=== PATIENT | female | born 1950 | race Caucasian/White ===

== ENCOUNTER 2020-06-23 07:43 | Outpatient (CLI) | payer MEDICARE, BC, SELFPAY ==
--- NOTE | ~2020-06-23 | US_ITS ---
EXAMINATION: US aorta [facility] DATE: 06/23/2020 08:26 INDICATION: Abdominal aortic aneurysm screening, prior smoker with history of hypertension and hyperc holesterolemia TECHNIQUE: Grayscale, color Doppler, and pulsed Doppler images of the aorta and common iliac arteries were obtained. COMPARISON: None. FINDINGS: Maximum vascular dimensions are as follows: Proximal aorta: 2.8 cm Mid aorta: 2.1 cm Distal aorta: 1.7 cm Right common iliac artery: Obscured by bowel gas Left common iliac artery: Obscured by bowel gas There is no evidence of abdominal aortic aneurysm. IMPRESSION: 1. No sonographic evidence of abdominal aortic aneurysm. Reviewed, dictated and finalized at location A.
== END 2020-06-23 07:44 | disposition home or self-care (01) ==
PROVIDERS: Visit Provider Internal Medicine Cardiovascular Disease
DX: Z87.891 Personal history of nicotine dependence (principal); Z12.2 Encounter for screening for malignant neoplasm of respiratory organs
CPT/HCPCS: 76706

== ENCOUNTER 2021-07-29 01:44 | Day surgery (SDC) | payer MEDICARE, BC, SELFPAY ==
[2021-07-29] VITALS (12 sets, daily range): BP systolic 103–150; BP diastolic 66–75; PULSE 68–77; RESP 13–23; TEMP 35.9–36; O2SAT 92–99; BMI 31.7
[2021-07-29 09:34] LABS: Basophils Absolute Auto 0.1 K/mm3 (0.0-0.1); Basophils Percent Auto 0.6 % (0.2-1.2); Eosinophils Absolute Auto 0.4 K/mm3 (0-0.3); Eosinophils Percent Auto 3.6 % (0-4.4); Hematocrit 35.4 % (37.0-47.0); Hemoglobin 11.9 g/dL (12.0-15.0); Immature Granulocyte Absolute 0.03 K/mm3 (0.00-0.031); Immature Granulocyte Percent A 0.3 % (0-0.5); Lymphocytes Absolute Auto 1.72 K/mm3 (0.9-3.2); Lymphocytes Percent Auto 17.3 % (18.3-44.2); Mean Corpuscular HGB Conc 33.6 g/dl (32-36); Mean Corpuscular Hemoglobin 33.7 pg (26-34); Mean Corpuscular Volume 100.3 fl (80-100); Mean Platelet Volume 10.4 fl (7.4-10.4); Monocytes Absolute Auto 0.6 K/mm3 (0.1-0.6); Monocytes Percent Auto 6.1 % (2.6-8.5); Neutrophils Absolute Auto 7.2 K/mm3 (1.3-6.7); Neutrophils Percent Auto 72.1 % (45.5-73.1); Platelet Count Result 278 k/mm3 (150-375); Red Blood Count 3.53 M/mm3 (4.2-5.4); Red Cell Distribution Width 13.8 % (11.5-14.5); White Blood Count 9.9 K/mm3 (4.5-10.0)
[2021-07-29 09:50] LABS: Anion Gap 9 mmol/L (8-16); Blood Urea Nitrogen 17 mg/dL (7-17); Calcium 9.5 mg/dL (8.4-10.2); Carbon Dioxide 28 mmol/L (22-30); Chloride 106 mmol/L (98-107); Estimated Glomerular Filt Rate > 60; Glucose 110 mg/dL (65-110); Sodium 143 mmol/L (137-145)
[2021-07-29] MEDS: ASPIRIN 81 MG CHEWABLE TABLET PO (10:00)
--- NOTE | 2021-07-29 10:11 | WPDHPUPDATE1 ---
History and Physical Update Update Date/Time: 07/29/21 10:11 History and Physical has been reviewed, including an updated exam of the patient. There are NO changes in the patient's condition. Risks, benefits, and alternatives have been discussed and questions answered. Patient agrees to proceed with procedure.
--- NOTE | 2021-07-29 10:11 | WPDMODSED ---
Moderate Sedation Note-Pt Data Patient Data Allergies Allergy/AdvReac Type Severity Reaction Status Date / Time cephalexin Allergy Unknown VERTIGO Verified 02/06/17 14:11 Home Medications Medication Instructions Recorded Confirmed Type albuterol sulfate [ProAir HFA] 2 puff INHALATION Q3-4H PRN 07/29/21 07/29/21 History allopurinol 300 mg PO QAM 07/29/21 07/29/21 History bupropion HCl 300 mg PO QAM 07/29/21 07/29/21 History carvedilol 12.5 mg PO QAM 07/29/21 07/29/21 History furosemide 40 mg PO QAM 07/29/21 07/29/21 History pantoprazole 20 mg PO QAM 07/29/21 07/29/21 History potassium chloride [Klor-Con M20] 20 meq PO BID 07/29/21 07/29/21 History Current Medications: Active Medications Sodium Chloride (Normal Saline Iv) 500 mls @ 100 mls/hr IV CONT .Q5H [facility] Sedation/Anesthesia: No previous sedation/anesthesia problems (including family history). Mod Sed Physical Exam Physical Exam Pre Procedural Exam: Normal: Appearance, Eyes, Ears, Nose, Neck, Throat, Airway, Lungs, Heart Size, Heart Rate, Heart Rhythm, Neuro Exam, Abdomen, Liver, Kidneys, Spleen, Breasts, Genitalia, Extremities and Skin Hours since solid foods: 8 Hours since liquid intake: 8 Mallampati Classification: class 1 Internal Medicine - PN: Obj Da Vital Signs Vital Signs: Vital Signs - 24 hr 07/29/21 09:43 Temperature 35.9 C L Pulse Rate 70 Respiratory Rate 18 Blood Pressure 150/73 H Pulse Oximetry 99 Meds/Results Medications: Active Medications Generic Name Dose Route Start Last Admin Trade Name Freq PRN Reason Stop Dose Admin Sodium Chloride 500 mls @ 100 mls/hr 07/29/21 07:00 Normal Saline Iv IV CONT .Q5H [facility] Labs CBC & Chem 7: 07/29/21 09:18 07/29/21 09:18 Labs: Laboratory Results - last 24 hr 07/29/21 07/29/21 09:18 09:18 WBC 9.9 RBC 3.53 L Hgb 11.9 L Hct 35.4 L MCV 100.3 H MCH 33.7 MCHC 33.6 RDW 13.8 Plt Count 278 MPV 10.4 Immature Gran % (Auto) 0.3 Neut % (Auto) 72.1 Lymph % (Auto) 17.3 L [place] % (Auto) 6.1 Eos % (Auto) 3.6 Baso % (Auto) 0.6 Lymph # (Auto) 1.72 [place] # (Auto) 0.6 Eos # (Auto) 0.4 H Baso # (Auto) 0.1 Abs Immat Gran (auto) 0.03 Absolute Neuts (auto) 7.2 H Absolute Nucleated RBC 0.0 Nucleated RBC % 0.0 Sodium 143 Potassium 4.0 Chloride 106 Carbon Dioxide 28 Anion Gap 9 BUN 17 Creatinine 0.90 Estim Creat Clear Calc Not Reportable Estimated GFR > 60 Glucose 110 Calcium 9.5 ASA Classification/Sedation ASA Classification/Sedation ASA Class: I Emergent: No Risks: Risks, benefits and alternatives explained and patient/family accepted plan for sedation. Patient re-evaluated immediately prior to sedation.
--- NOTE | 2021-07-29 10:14 | WPDCARDPROC ---
Cardiac Cath Procedure Note Date of procedure:: 07/29/21 Performing physician:: Bimal Brady MD date of service July 29, 2021 Indication:: Abnormal stress test Brief clinical history:: this 71-year-old female past history hypertension, rheumatoid arthritis, PVCs, monoclonal paraproteinemia who was evaluated for family history for coronary artery disease as well as coronary calcification. He admits to dyspnea on exertion. Underwent Lexiscan stress test that showed inferior ischemia anterior wall mixed infarction and ischemia. Procedure Procedure performed:: 1-Moderate sedation that started at 10:19 a.m. and ended at 1034 total duration 15 minutes using 3mg of Versed and 75mcg fentanyl. The registered nurse was Randall Pereira. 2-Selective left and right coronary angiogram. 3-Left heart catheterization with measurement of LVEDP and measurement of gradient across aortic valve. 4-Right common femoral arterial angiogram. 5-Deployment of 6 Slovak Angio-Seal. Sedation/Medication given:: Moderate sedation. Access site:: Right common femoral artery. Estimated blood loss:: 10cc Procedure note:: After informed consent patient was brought in to denture laboratory technician with the was draped and prepped in usual manner. Moderate sedation was given and the right groin was infiltrated using 1% lidocaine. Five Slovak sheath was obtained using micropuncture needle and the modified Seldinger technique. Selective left coronary angiogram was done using JL4 catheter with the tip of the catheter placed in the left main coronary artery. Selective right coronary angiogram was done using JR4 catheter with the tip of the catheter placed to the right coronary artery. After that 5 Slovak pigtail catheter was advanced across the aortic valve into the left ventricle with measurement of LVEDP and measurement of gradient across aortic valve. Right common femoral arterial angiogram was done. Findings:: 1- left coronary artery is a large artery that divides into large LAD, large circumflex artery. Left main is Free of disease. 2- left anterior descending artery is a large artery that runs and wraps around the apex. Has minimal irregularities proximally. Small to medium-sized diagonal 1 branch without significant disease. 3- leftcircumflex artery is a large artery Small OM1 without significant disease. A medium size OM 2 without significant disease. 4- right coronary artery is Large artery and dominant and has the mid segment 20%. 5- LVEDP was 12 mm mercury and no gradient across aortic valve. 6- opening arterial pressure was and 160/80 and closing pressure was 140/80 7- right femoral artery angiogram shows no significant disease in the right common femoral artery. Conclusion:: minimal coronary irregularities. False-positive stress test. Assessment and Plan Additional Plan continue aggressive risk factor modification for CAD.
--- NOTE | 2021-07-29 14:15 | SUR.PHASEII ---
Pt departs helper animal laboratory via wheelchair, taken to private car where is to drive patient home. Dressing at puncture site looks clean, dry, and intact. Site remains nontender and free of any signs of bleeding/hematoma. DC instructions and restrictions reviewed with patient. Patient verbalized understanding. VSS upon DC. IV discontinued, catheter removed intact, bleeding controlled at site.
== END 2021-07-29 14:10 | disposition home or self-care (01) ==
PROVIDERS: PCP Nurse Practitioner Family; Visit Provider Internal Medicine Cardiovascular Disease
PROC: 4A023N7 Measurement of Cardiac Sampling and Pressure, Left Heart, Percutaneous Approach (ICD-10-PCS; CPT 93452; principal; 2021-07-29 10:00)
DX: R94.39 Abnormal result of other cardiovascular function study (principal); R06.09 Other forms of dyspnea; I10 Essential (primary) hypertension; M06.9 Rheumatoid arthritis, unspecified; I49.3 Ventricular premature depolarization; D47.2 Monoclonal gammopathy; Z79.51 Long term (current) use of inhaled steroids
CPT/HCPCS: 36415; 80048; 85025; 93458; A9270; C1760; C1887; C1894; G0269; J1644; J2250; J3010; J7040

== ENCOUNTER 2024-04-08 12:35 | Emergency (ER) | payer MEDICARE, SELFPAY ==
[2024-04-08 12:48] VITALS: BP 142/62; PULSE 86; RESP 20; TEMP 37; O2SAT 99
--- NOTE | 2024-04-08 14:22 | ED.GENADULT ---
HPI - General Adult General Chief complaint: Abdominal Pain Stated complaint: Abdominal Pain Time Seen by Provider: 04/08/24 13:15 Source: patient, RN notes reviewed and old records reviewed Mode of arrival: ambulatory Limitations: no limitations History of Present Illness HPI narrative: 74-year-old female to Express Care for complaint of nausea, lower abdominal pain, temp up to 100.5 for 3 days. Patient reports history of chronic diarrhea and intermittent colitis. Patient states she is concerned for urinary tract infection. Patient denies urinary frequency, incontinence, hematuria, dysuria, hesitancy. Patient able to tolerate fluids by mouth. Patient in no acute distress in exam room. Related Data Home Medications Medication Instructions Recorded Confirmed albuterol sulfate 90 mcg/actuation 2 puff inhalation Q3-4H PRN 07/29/21 04/08/24 aerosol inhaler (ProAir HFA) Shortness Of Breath allopurinol 300 mg tablet 300 mg PO QAM 07/29/21 04/08/24 bupropion HCl 300 mg 24 hr tablet, 300 mg PO QAM 07/29/21 04/08/24 extended release carvedilol 12.5 mg tablet 12.5 mg PO QAM 07/29/21 04/08/24 furosemide 40 mg tablet 40 mg PO QAM 07/29/21 04/08/24 pantoprazole 20 mg tablet,delayed 20 mg PO QAM 07/29/21 04/08/24 release potassium chloride 20 mEq 20 meq PO BID 07/29/21 04/08/24 tablet,extended release(part/cryst) (Klor-Con M) baclofen 10 mg tablet 10 mg PO HS 04/08/24 04/08/24 budesonide-formoterol HFA 160 See Rx Instructions .Route .COMPLEX 04/08/24 04/08/24 mcg-4.5 mcg/actuation aerosol inhaler famotidine 20 mg tablet 20 mg PO DAILY 04/08/24 04/08/24 prednisone 5 mg tablet 5 mg PO DAILY 04/08/24 04/08/24 Allergies Allergy/AdvReac Type Severity Reaction Status Date / Time cephalexin Allergy Unknown VERTIGO Verified 04/08/24 12:47 Review of Systems Review of Systems: All systems reviewed & are unremarkable except as noted in HPI and below Constitutional: Constitutional: Reports as per HPI and Reports fever(s) Eyes: Eyes: Reports no additional eye complaints ENT: Reports system reviewed and no additional complaints, except as documented Cardiovascular: Cardiovascular: Reports no additional cardiovascular complaints, Denies chest pain and Denies dyspnea Respiratory: Respiratory: Reports no additional respiratory complaints, Denies cough and Denies dyspnea Gastrointestinal: Gastrointestinal: Reports as per HPI, Reports abdominal pain ( Lower) and Reports nausea Musculoskeletal: Musculoskeletal: Reports no additional musculoskeletal complaints Neurologic: Reports system reviewed and no additional complaints, except as documented Psychiatric: Psychiatric: Reports no additional psychiatric complaints PMFSH Comments At the time of my signature, I reviewed and agree with the nursing past medical, surgical, social, and family history. There is no relevant family history pertinent to the patient complaint. Exam Const: General: cooperative, healthy appearing, no acute distress, alert, anxious and well nourished Nutritional Appearance: well nourished Orientation/consciousness: patient oriented x3 Limitations: no limitations HENMT: Head: normal to inspection Ears: external ears normal Face/Nose/Sinus: Normal external nose present, Normal nares present, normal facial exam, No erythema and No edema Face and sinus: normal facial exam, no erythema and no edema Mouth: Yes Normal oral and palatal mucosa present Eyes: General: appearance normal, both eyes and all related structures Neck: Neck: normal visual inspection, full ROM and no meningeal signs Lymphatic: no lymphadenopathy noted and no lymphedema noted Chest: Chest palpation & inspection: normal inspection of the chest Resp: Effort & Inspection: normal respiratory effort and able to speak in complete sentences Auscultation: clear to auscultation bilaterally Cardio: Jugular venous distension: no JVD Rate: regular rate Rhythm: regular rhythm GI:
== END 2024-04-08 14:50 | disposition home or self-care (01) ==
PROVIDERS: Emergency Provider Nurse Practitioner Family; PCP Internal Medicine
DX: N39.0 Urinary tract infection, site not specified (principal); E78.00 Pure hypercholesterolemia, unspecified; I10 Essential (primary) hypertension; J44.9 Chronic obstructive pulmonary disease, unspecified; Z86.16 Personal history of COVID-19; M06.9 Rheumatoid arthritis, unspecified; M10.9 Gout, unspecified
CPT/HCPCS: 81003; 87086; 87088; 99213; G0463

== ENCOUNTER 2025-02-18 11:23 | Emergency (ER) | payer BC, SELFPAY ==
--- NOTE | 2025-02-18 11:28 | ED.URI ---
HPI - URI/Sore Throat General Chief Complaint: Upper Respiratory Infection Stated Complaint: urinary irritation/sore throat Time Seen by Provider: 02/18/25 11:52 Source: patient and RN notes reviewed Mode of arrival: ambulatory Limitations: no limitations History of Present Illness HPI Narrative: 74-year-old female presents with multiple concerns. She reports a cough for about 3 days. She has a history of bronchial disease for which she uses Symbicort twice daily and albuterol as needed. She has not used her in albuterol week. And a 2nd complaint she reports urine urgency and 1 episode of incontinence. Denies dysuria. She reports low-grade fever last night. MD elicited complaint: cough Related Data Home Medications ?Medication ?Instructions ?Recorded ?Confirmed ?Last Taken ?Type albuterol sulfate 90 mcg/actuation 2 puff inhalation Q3-4H PRN 07/29/21 02/18/25 07/29/21 07:00 History aerosol inhaler (ProAir HFA) Shortness Of Breath allopurinol 300 mg tablet 300 mg PO QAM 07/29/21 02/18/25 07/29/21 History bupropion HCl 300 mg 24 hr tablet, 300 mg PO QAM 07/29/21 02/18/25 07/29/21 History extended release 0700 carvedilol 12.5 mg tablet 12.5 mg PO QAM 07/29/21 02/18/25 07/29/21 07:00 History furosemide 40 mg tablet 40 mg PO QAM 07/29/21 02/18/25 07/28/21 07:00 History pantoprazole 20 mg tablet,delayed 20 mg PO QAM 07/29/21 04/08/24 07/29/21 07:00 History release potassium chloride 20 mEq 20 meq PO BID 07/29/21 02/18/25 07/29/21 07:00 History tablet,extended release(part/cryst) (Klor-Con M) baclofen 10 mg tablet 10 mg PO HS 04/08/24 02/18/25 Unknown History budesonide-formoterol HFA 160 See Rx Instructions .Route .COMPLEX 04/08/24 02/18/25 Unknown History mcg-4.5 mcg/actuation aerosol inhaler famotidine 20 mg tablet 20 mg PO DAILY 04/08/24 04/08/24 Unknown History prednisone 5 mg tablet 5 mg PO DAILY 04/08/24 02/18/25 Unknown History hydrocodone 5 mg-acetaminophen 325 tablet 02/18/25 Unknown History mg tablet Allergies Allergy/AdvReac Type Severity Reaction Status Date / Time tramadol Allergy Mild Migraine Verified 02/18/25 11:49 cephalexin Allergy Unknown VERTIGO Verified 02/18/25 11:49 Review of Systems Review of Systems: CONSTITUTIONAL: Denies malaise, chills, sweats. Reports low-grade fever. EYES: Denies visual changes, redness, or discharge. ENT: Reports rhinorrhea. Denies congestion, sinus pain, otalgia and sore throat. CARDIOVASCULAR: Denies chest pain, palpitations, or edema. RESPIRATORY: Reports cough. Denies dyspnea. GASTROINTESTINAL: Denies abdominal pain, nausea, vomiting, diarrhea : Reports urgency and 1 episode of incontinence. She denies dysuria, suprapubic pressure, back pain SKIN: Denies rash or itching. MUSCULOSKELETAL: Denies myalgia. NEUROLOGIC: Denies headache. All systems reviewed & are unremarkable except as noted in HPI and below PMFSH Comments At time of signature, agree with nursing past medical, surgical, social and family history. There is no relevant family history pertinent to the presenting complaint Exam Narrative: GENERAL: Well-appearing, well-nourished, and in no acute distress. HEAD: Normocephalic EYES: PERRLA, conjunctivae clear ENT: Nares clear. Mucous membranes moist. TM pearly [place] with dull light reflex bilaterally; no tragal tenderness. Oropharynx not erythematous without lesions. Tonsils not enlarged and without exudate, no drooling, no hoarseness, no trismus, uvula midline. NECK: Supple. No lymphadenopathy CHEST: Mild wheeze throughout, scattered rhonchi, breath sounds equal. No rhonchi, rales, or stridor. No respiratory distress, speaks in full sentences. HEART: Regular rate and rhythm. No murmur heard. SKIN: Warm, dry, no rash. NEURO: Alert and oriented x3. PSYCH: Normal mood and affect Course Course Emergency Course: Patient is aware of diagnosis, understands and agrees to treatment plan. Anticipatory guidance given. Patient agrees to follow-up as directed and is aware of reasons to seek care at the emergency department. Portions of this record may have been created with voice recognition software Level of Care: Express Care Visit Vital Signs Vital signs: Reviewed. MDM - URI/Sore Throat MDM Narrative Medical decision making narrative: Differential diagnosis considered: Humphrey virus, strep pharyngitis, allergic rhinitis, upper respiratory tract infection, sinusitis, rhinosinusitis, nasopharyngitis. viral pharyngitis, otitis media, otitis externa, pneumonia, bronchitis, viral cough syndrome, viral syndrome, and influenza. Exam findings show no acute concerns or changes; patient is non-toxic appearing and is in no distress. Patient is appropriate for outpatient treatment and follow-up. Lab Data Attestation: I reviewed the patient's lab results. Critical Care Time Critical Care Time Critical Care Time: No Discharge Plan Discharge Clinical Impression: Upper respiratory infection Patient Disposition: Home, Self-Care Condition: Stable Instructions: Antibiotic Form Additional Instructions: 1) Please follow-up with your primary care doctor in the next 1-2 days. 2) If you have any worsening of symptoms or any other urgent concerns please go to the ER. 3) Please take medications as prescribed and continue taking your home medications as usual. 4) Please read and follow information included in discharge instructions. We will send a urine culture to the lab; if the culture identifies an organism that requires antibiotic, you will receive a phone call from an urgent care staff member and an appropriate antibiotic will be prescribed. Patient Language: Colombian Prescriptions: New azithromycin [Zithromax Z-En] 250 mg tablet See Rx Instructions .ROUTE .COMPLEX Qty: 6 0RF Rx Instructions: take 500 mg today (day 1), then 250 mg for 4 days (days 2-5) methylprednisolone [Medrol (En)] 4 mg tablets,dose pack See Rx Instructions .ROUTE .COMPLEX Qty: 21 0RF Rx Instructions: orally per package directions No Action budesonide-formoterol 160-4.5 mcg/actuation HFA aerosol inhaler See Rx Instructions .ROUTE .COMPLEX Rx Instructions: as prescribed famotidine 20 mg Tablet 20 mg PO DAILY baclofen 10 mg Tablet 10 mg PO HS prednisone 5 mg Tablet 5 mg PO DAILY fosfomycin tromethamine 3 gram packet 3 g PO ONCE Qty: 1 0RF hydrocodone-acetaminophen 5-325 mg tablet furosemide 40 mg tablet 40 mg PO QAM carvedilol 12.5 mg tablet 12.5 mg PO QAM pantoprazole 20 mg tablet,delayed release (DR/EC) 20 mg PO QAM potassium chloride [Klor-Con M20] 20 mEq tablet,ER particles/crystals 20 meq PO BID allopurinol 300 mg tablet 300 mg PO QAM albuterol sulfate [ProAir HFA] 90 mcg/actuation HFA aerosol inhaler 2 puff INHALATION Q3-4H PRN (Reason: Shortness Of Breath) bupropion HCl 300 mg tablet extended release 24 hr 300 mg PO QAM Follow-up/Referrals: Dimitri,Jonathon Hay MD [Primary Care Provider] - Time of Disposition: 12:04
[2025-02-18 11:38] VITALS: BP 151/75; PULSE 90; RESP 20; TEMP 37.3; O2SAT 98
[2025-02-18 11:50] LABS: EDUAAPPEAR Clear; EDUABILI Negative (Negative); EDUABLOOD Negative (Negative); EDUACOLOR1 Yellow; EDUAGLUCOSE Negative (Negative); EDUAKETONE Negative (Negative); EDUALEUKO Trace (Negative); EDUANITRATE Negative (Negative); EDUAPROTEIN Negative (Negative); EDUASPGRAVITY 1.015; EDUAUROBILI 0.2
--- OUTSIDE RECORDS SUMMARY | 2025-02-18 12:50 | XMS_ITS | Encounter Summary ---
Author Organization [facility] Address [address] [place] [address] Phone Care Team Providers Care Yarn Twister Name Role Phone Herlinda Chakraborty NP Primary Care Provider [phone] Shelby Kaplan RN Unavailable [phone] Scooter Orta MD Unavailable Jonah Farrell MD Unavailable [phone] Vanessa Youngblood NP Unavailable [phone] Telly Baker RN Unavailable Dejon Mosley MD Primary Care Provider + Chencho Cesar PT Unavailable Unavailab Joseph Marks MD Unavailable [phone] Gerardo Bass MD Unavailable [phone] Encounter Details Date Type Department Care Team (Late st Contact Info) Description 11/30/2017 Orders Only [facility] ProviderAugustus MD [facility] [place] [address] Social History Tobacco Use Types Packs/Day Years Used Date Smoking Tobacco: Former Smokeless Tobacco: Former Alcohol Use Standard Drinks/Week Comments Yes 0 (1 standard drink = 0.6 oz pur e alcohol) Comments Unknown Sex and Gender Information Value Date Recorded Sex Assigned at Not on file Legal Sex Female 9:51 AM INSURANCE SPECIALIST Gender Identity Not on file Sexual Orientation Straight 06/11/2020 9: 11 PM CDT documented as of this encounter Plan of Treatment Not on file documented as of this encounter Procedures Procedure Name Priority Date/Time Associated Diagnosis Comments DISCHARGE LABORATORY CUMULATIVE REPORT 11/30/2017 12:00 AM INSURANCE SPECIALIST SURGICAL PATHOLOGY 11/30/2017 12 :00 AM INSURANCE SPECIALIST documented in this encounter Results * SURGICAL PATHOLOGY (11/30/2017 12:00 AM INSURANCE SPECIALIST) Narrative 11/30/2017 12:00 AM INSURANCE SPECIALIST Ordered by an unspecified provider. Historical Provider LAB PATHOLOGY ORDERABLES Final Result * DISCHARGE LABORATORY CUMULATIVE REPORT (11/30/2017 12:00 AM INSURANCE SPECIALIST) Narrative 11/30/2017 12:00 AM INSURANCE SPECIALIST Ordered by an unspecified provider. Historical Provider LAB BLOOD ORDERABLES Marla l Result documented in this encounter Visit Diagnoses Not on filedocumented in this encounter Additional Health Concerns Infection Onset Date Last Indicated Resolved Time COVID: Suspected 07/03/2020 07/03/2020 07/04/2020 6:39 PM CDT Respiratory Infection ([facility]UTHER), contact + droplet Comment:Automatically added due to negative COVID-19 result. 07/04/2020 07/04/2020 07/18/2020 3:0 6 AM CDT COVID19 Comment:Patient tested positive for COVID-19 on 10/02/20 at [facility]. 10/07/2020 10/07/2020 10/26/2020 3:05 AM INSURANCE SPECIALIST COVID: Recovered Comment:Added based on recent COVID infection. 10/26/2020 11/02/2020 02/23/2021 3:05 AM C DT COVID: Suspected 04/02/2022 04/02/2022 04/02/2022 10:48 AM CDT COVID: Suspected 05/23/2022 05/23/2022 05/23/2022 8:02 AM CDT MDR gram neg/ESBL 06/20/2023 06/20/2023 documented as of this encounter Care Teams Yarn Twister Relationship Specialty Start Date End Date Herlinda Chakraborty, REGIONAL DIRECTOR OF FINANCE PCP - General Family Medicine 08/21/17 03/07/22 Dejon Mosley MD [address] [place] [address] [place] [address] PCP - General 03/08/22 Shelby Kaplan RN [address] [place] [address] Drive [address] [place] [address] Vp Cardiovascular Service Line 03/05/18 03/08/18 [place] [address] [address] Consulting Physician Pulmonary Disease 03/19/20 [place] [address] [address] Consulting Physician Medical Oncology 03/19/20 04/18/23 Vanessa Youngblood, REGIONAL DIRECTOR OF FINANCE [id number] [address] Nurse Practitioner Medical Oncology 03/19/20 Telly Baker, YUVAL [address] [place] [address] [facility] [address] [place] [address] Vp Cardiovascular Service Line 01/07/21 03/13/22 Chencho Cesar, PT Physical Therapist Physical Therapy 03/23/22 Joseph Moser MD Medical Oncologist/Hematologi st Hematology and Oncology 10/19/22 Gerardo Bass MD [address] [place] [address] Consulting Physician Otolaryngology 10/31/23 documented as of this encounter
--- OUTSIDE RECORDS SUMMARY | 2025-02-18 12:50 | XMS_ITS | Continuity of Care Document ---
Author Organization [facility] Address [address] [facility] utiprisca Aguilera [address] [place] [phone] Phone Care Team Providers Care Contact Acid Plant Operator Name Role Phone Unavailable Unavailable Unavailable Allergies, Adverse Reactions, Alerts Substance Reaction Status Criticality CEPHALEXIN MONOHYDRATE Active No In formation tramadol Active No Information Medications Medication Instructions Dosage Effective Dates (start - stop) Status Comments Vigamox 0.5 % eye drops instill 1 drop by ophthalmic route 4 times every day into operative eye for 2 weeks, then stop - Active ok to substitute Polytrim 5ml with same directions prednisolone acetate 1 % eye drops,suspension instill 1 drop by ophthalmic route 4 times every day into operative eye for 2 weeks, then 2 times per day for 2 weeks, then stop - Active ketorolac 0.5 % eye drops instill 1 drop in operative eye 4 times every day for 2 weeks, then 2 times per day for 2 weeks, then stop - Active flaxseed oil 1,000 mg capsule take one tablet daily - Active citalopram 20 mg tablet take 1 tablet by oral route every day 20 MG - Active triamterene 37.5 mg-hydrochlorothia zide 25 mg tablet take 1 tablet by oral route every day 1.00 tablet - Active aspirin 81 mg tablet,delayed release take 1 tablet by oral route every day 81 MG - Active famotidine 20 mg tablet take 1 tablet by oral route every day 20 MG - Active carvedilol 6.25 mg tablet take 1 tablet by oral route 2 times every day with food 6.25 MG - Active Klor-Con 20 mEq oral packet take 1 packet by oral route 3 times every day dissolved in 4-6 ounces of cold water or juice 20 MEQ - Active furosemide 40 mg tablet take 3 tablet by oral route every day 120 MG - Active omeprazole 40 mg capsule,delayed release take 1 capsule by oral route every day before a meal 40 MG - Active allopurinol 300 mg tablet take 1 tablet by oral route every day 300 MG - Active prednisone 5 mg tablet take 1 tablet by oral route every day 5 MG - Active Procedures Procedure Date No Charge Refraction Post-op Follow-up Visit Post-op Follow-up Visit Remove Cataract, Post Op Care 1 Remove Cataract, Insert Lens,Comanaged F IOLMaster-Professional No Charge Refraction No Charge Optomap Fundus Photos 021 Post-op Follow-up Visit Remove Cataract, Post Op Care 1 Remove Cataract, Insert Lens,Comanaged J IOLMaster-Professional No Charge Orbscan SCODI, Retina No Charge Optomap Fundus Photos 020 No Charge Refraction IOLMaster-Technical Eye Exam & Treatment SCODI, Retina Refraction Eye Exam, New Patient Advance Directives Directive Yes / No Effective Date File Name No Information Encounters Encounter Description Practice Location Reason(s) For Visit Diagnoses Date Provider Providers Copied on Encounter [facility], [address] [address], [place], [place], [id number], tel:[phone] SEC Pankaj MERCADO Professional Post-Op (chief complaint) Post op visit 1 No Information Referring Provider: Hernan Ulloa, [address] [facility] [address], [place], [address] . tel:[phone] [facility], [employer] [address], [place], [place], [address], tel:[phone] SEC [place] Professional 1 wk CE PO (12/30/20) (chief complaint) Post op visit No Information Referring Provider: Hernan Ulloa, [address] [facility] [address], [place], [address] . tel:[phone] [facility] Eye [facility], [address], [place], [place], [address], tel:[phone] SEC Pankaj [place] Professional 1 day po PCIOL OD (12/30/20) (chief complaint) Post op visit No Information Referring Provider: Hernan Ulloa, [address] [facility] [place], [address] . tel:[phone] [facility], [address] [place] [address] [address], [place], [place], [address], tel:[phone] [facility] No Information Phil Becerra. [address] [facility], [facility] [place], [address], . tel:[phone] Referring Provider: Hernan Ulloa, [address] [facility] [place], [address] . tel:[phone] [facility], [address], [place], [place], [address], tel:[phone] [place] No Information Phil Becerra. [address] [facility], [facility] [place], [address], . tel:[phone] Referring Provider: Hernan Ulloa, [address] [facility] [place], [address] . tel:[phone] [facility], [address], [place], [place], [address], [place] tel:[phone] SEC Pankaj MERCADO Professional 2 wk po PCIOL OS (12/10/20) (chief complaint) Post op visit 1 Phil Becerra. [address] [employer] [address], [place], [place], [address], . tel:[phone] Referring Provider: Hernan Ulloa, [address] [facility] [address], [place], [address] . tel:[phone] [facility] Eye [facility], [address], [place], [place], [address], [place] tel:[phone] SEC Pankaj MECRADO Professional Post-Op (chief complaint) Post op visit 1 No Information Referring Provider: Hernan Ulloa, [address] [facility] [place], [address] . tel:[phone] [facility], [address], [place], [place], [address], [place] [phone] [facility] No Information 1 Phil Becerra. [address] [facility], [address] [place], [address], [place]. tel:[phone] Referring Provider: Hernan Ulloa, [address] [facility] [address], [place], [address] . tel:[phone] [facility], [address], [place], [place], [address], [place] [phone] SEC Pankaj MERCADO Professional No Information 1 Phil Becerra. [address] [employer] [address] [place], [address], [place]. tel:[phone] Referring Provider: Hernan Ulloa, [address] [employer] [employer] [address], [place], [address] . tel:[phone] [facility] Eye [facility], [address], [place], [place], [address], [phone] SEC [place] Professional Complete Exam (chief complaint) Age-related nuclear cataract, bilateralVitr eous degeneration, left eyeDrusen (degenerative ) of macula, left eye Nov-0 3-202 0 Phil [employer]ra. [address] [employer], [address] [place], [address], [place]. tel:[phone] Referring Provider: Hernan Ulloa, [address], [place], [address] . tel:[phone] [facility], [address], [place], [place], [address], [phone] [facility] No Information Oct-2 8-202 0 Phil Becerra. [address] [employer], [address] [place], [address], [place]. [phone] [facility], [address], [place], [place], [address], [place] tel:[phone] SEC Pankaj [place] Professional Complete Exam (chief complaint) Punctate keratitis, bilateralAge- related nuclear cataract, bilateralPVD (posterior vitreous detachment), both eyesDrusen (degenerative ) of macula, left eye Dec-1 0-201 8 Phil Becerra. [address] [employer] [address] [place], [address], [place]. tel:[phone] Referring Provider: Hernan Ulloa, [address] [employer] [place], [address] . tel:[phone] [facility], [address], [place], [place], [address], [place] [phone] SEC [place] Professional No Information Dec-0 6-201 8 Phil Becerra. [address] [facility], [address], [place], [place], [address], [place]. tel:[phone] Family History Family Member Type Diagnosis Age At Onset Daughter Problem (finding) RD Mother Problem (finding) degenerative disorder o f macula Payers Payer name Insurance type Covered green party ID Authoriza tion(s) No Information Social History Type Description Quantity Date Captured Comments Alcohol Use Details Caffeine Use Details Tobacco Use Status Ex-cigarette smoker 021 Smoking Status Former smoker Smoking Tobacco Use Details Cigarette: Age Started: 16, Age Stopped: 46, Years Used 30 Cigarette: No Details Available Sex Female Gender Identity Female Chief Complaint And Reason For Visit From encounter dated '01/27/2021 08:00'. Post-Op (chief complaint). Description: The 70 year old female presents for a 1 month post op CE OD. Patient is pseudo ou. Patient used Pred and Ketorolac this am. Patient states eyes get a little dry. Reason For Referral Reason For Referral No Information Plan Of Treatment Date Type Action Status Patient Education Cataract Surgery: What to Expect at H~ completed Patient Education Learning About Retinal Drusen completed History Of Present Illness Encounter Date Complaint History Of Prese nt Illness Post-Op The 70 year old female presents for a 1 month post op CE OD. Patient is pseudo ou. Patient used Pred and Ketorolac this am. Patient states eyes get a little dry. 1 wk CE PO (12/30/20) The 70 year old female presents for evaluation of 1 wk CE PO (12/30/20) in the right eye. Pt reports she is using Vigamox QID OD, Pred QID OD, and Ketorolac QID OD. Pt reports OD is doing good and VA is doing good. 1 day po PCIOL OD (12/30/20) The 70 year old female presents for evaluation of 1 day po PCIOL OD (12/30/20) in the right eye. Pt reports good comfort and vision OD. Pt was assigned Prednisolone, Ketorolac, and Vigamox QID OD. Post op instructions reviewed and understood by the pt. 2 wk po PCIOL OS (12/10/20) The [age] year old female presents for evaluation of 2 wk po PCIOL OS (12/10/20), 90 day eval OD. Pt reports good comfort and vision OS. She has been taking Pred, Vigamox and Ketorolac QID OS. Pt reports glare while driving at night. She has trouble seeing street signs and reading small print at near such as newspapers, books and medicine bottles x many months OD. Post-Op The 70 year old female presents for a 1 day post op CE OS. Patient is using Pred, Vigamox and Ketorolac qid OS. Patient denies any pain or discomfort. Complete Exam The 70 year old female presents for evaluation of Complete Exam in the right eye and left eye. Hx of PVD OU, Drusen OS, SPK OU, and DELIA OU. Patient states her right eye PVD seems to be getting worse she is having more shadowing over the last couple of months. Patient states VA has gotten worse over the last year. Patient has difficulty driving at night due to glare with both eyes. Patient has trouble seeing road signs at a distance with both eyes x year. Patient has difficulty reading labels on can goods with both eyes x years. Complete Exam The 68 year old female presents for a complete exam ou. Patient has RA and takes Pred and Methotrexate. Patient states she has a hx of PVD ou. Patient c/o central vision in OS is blurry. Patient sees [place] Dr. Stein. Patient states she has gone back to her old glasses. Functional Status Date Functional Assessmen t No Information Instructions Date Instruction Additional Infor romeo Impression/Plan Impression/Plan Impression/Plan Impression/Plan Impression/Plan Impression/Plan Impression/Plan Assessments Type Assessment Date assessment Post op visit Patient Care Teams Name Effective Dates (start - stop) Status Members No Information
--- OUTSIDE RECORDS SUMMARY | 2025-02-18 12:50 | XMS_ITS ---
Author Organization [facility] Address [address] [facility] [address] [place] [address] Care Team Providers Care Production Expert Name Role Phone Dimitri LEE, Dejon Primary Care Provider Sondra Pimentel Unavailable [phone] Allergies Allergen (clinical drug ingredient) Drug/Non Drug Allergy documented on EMR Reaction Allergy Type Onset Date Status Keflex Unknown Drug Allergy 03/28/2018 Active tramadol Tramadol Reaction: migraines Drug Allergy 03/28/2018 Active REASON FOR VISIT follow-up, inflammatory arthritis, hearing loss, Dr. Dejon Mosley Medications Medication SIG (Take, Route, Frequency, Duration) Notes Start Date End Date Status Benzonatate 200 MG 1 capsule Orally Three times a day for 30 day(s) Active Pepcid 20 MG take 1 tablet (20 mg) by oral route once daily at bedtime Oral 1 Active Clotrimazole 10mg prn for thrush *Pick strength-form from [facility] for eRX* Not-Taking Allopurinol 300 MG take 1 tablet (300 mg) by oral route once daily Oral Once a day for 90 days Active predniSONE 5 MG TAKE 1 TABLET BY MOUTH EVERY DAY Orally Once a day for 90 days Active Potassium Chloride ER 20 MEQ take 1 tablet (20 meq) by oral route 2 times per day with food Oral 2 Active Multi-Vitamin take 1 tablet by oral route once Oral 1 Active Vitamin B Complex Oral Ac tive Furosemide 40 MG Oral Act thu Albuterol Sulfate HFA 108 (90 Base) MCG/ACT prn Inhalation Active Baclofen 10 MG 1 tablet as needed Orally bedtime Active Carvedilol 12.5 MG take 1 tablet (12.5 mg) by oral route 2 times per day with food Oral 2 Active buPROPion HCl ER (XL) 300 MG take 1 tablet (300 mg) by oral route once daily Oral 1 Active Vital Signs Temperature 97.2 degrees Fahrenheit 03/06/20 24 Blood pressure systolic 120 mm Hg 03/06/20 24 Blood pressure diastolic 80 mm Hg 024 Heart Rate 63 /min 03/06/2024 Height 69 in 03/06/2024 Weight 190 lbs 03/06/2024 BMI 28.06 kg/m2 03/06/2024 Oximetry 93 % 03/06/2024 Encounters Encounter Location Date Provider Diagnosis [facility] [address] [facility] [address] [place] [address] 03/06/2024 Sondra Jade Inflammatory arthrit is M19.90 ; Gout, unspecified cause, unspecified chronicity, unspecified site M10.9 ; Decreased GFR R94.4 ; Multiple myeloma, remission status unspecified C90.00 and Hearing loss of right ear, unspecified hearing loss type H91.91 Assessments Encounter Date Diagnosis (ICD Code) Assessment Notes Treatment Notes Treatment Clinical Notes Section Notes 03/06/2024 Inflammatory arthritis (ICD-10 - M19.90) she wants to be checked for temporal arteritis, will order CRP, refer to Dr. Montague (ENT) 03/06/2024 Gout, unspecified cause, unspecified chronicity, unspecified site (ICD-10 - M10.9) she wants to be checked for temporal arteritis, will order CRP, refer to Dr. Montague (ENT) 03/06/2024 Decreased GFR (ICD-10 - R94.4) she wants to be checked for temporal arteritis, will order CRP, refer to Dr. Montague (ENT) 03/06/2024 Multiple myeloma, remission status unspecified (ICD-10 - C90.00) she wants to be checked for temporal arteritis, will order CRP, refer to Dr. Montague (ENT) 03/06/2024 Hearing loss of right ear, unspecified hearing loss type (ICD-10 - H91.91) she wants to be checked for temporal arteritis, will order CRP, refer to Dr. Montague (ENT) Plan Of Treatment Medication Medication Name Sig Start Date Stop Date Notes Allopurinol 300 MG take 1 tablet (300 m g) by oral route once daily Oral Once a day for 90 days predniSONE 5 MG TAKE 1 TABLET BY ANGEL TH EVERY DAY Orally Once a day for 90 days Next Appt Details Provider Name:Sondra Jade, 04/09 10:45:00 AM, [address] [facility] [address], [place], [address], Progress Notes * Pita MONeDOB:1950 (74 yo F)Acc No.[id number]:03/06/2024 Progress Notes Patient: Bhavana CORDON Provider: Crow JADE MD :1950 A ge:74 Y S ex:Female Date:03/06/2024 Address:[address] [place] [address] , [place] [address] Subjective: * Chief Complaints: * F ollow-upInflammatory arthritis, hearing lossDr. 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 ESR ranged from 50's to 77 hx of skin cancer GFR 47. saw renal, stopped ibuprofen, GFR went up to 60. * ROS: G eneral / Constitutional: Patient denies f gracy, chills. P atient complains of?fatigue. M usculoskeletal: Patient complains of s ee HPI. S kin: Patient denies r yanet. * Medical History: * Surgical History: H ysterectomy; [id number]; [id number]; [id number] ligation; 2018-03-28 * Hospitalization/Major Diagno stic Procedure: * Family History: M igrated Family History: Gall Bladder Cancer , Heart Disease , Prostate Cancer . * Social History: M igrated Social History: M igrated Social History: :: 2 Children , Exercise :: Active but no formal exercise , Marital Status :: , Occupation :: Retired :: note : - [employer] 04/24/2018 , Substance Use :: Alcohol , Substance Use :: Former smoker , Substance Use :: rare alcohol usage , Substance Use :: Social Drinker , Substance Use :: Tobacco :: Former :: note : quit 1996. * Medications: T akingBaclofen 10 MG Tablet 1 tablet as needed Orally bedtime buPROPion HCl ER (XL) 300 MG Tablet Extended Release 24 Hour take 1 tablet (300 mg) by oral route once daily Oral 1 Carvedilol 12.5 MG Tablet take 1 tablet (12.5 mg) by oral route 2 times per day with food Oral 2 Furosemide 40 MG Tablet Oral Allopurinol 300 MG Tablet take 1 tablet (300 mg) by oral route once daily Oral 1 Albuterol Sulfate HFA 108 (90 Base) MCG/ACT Aerosol Solution prn Inhalation predniSONE 5 MG Tablet TAKE 1 TABLET BY MOUTH EVERY DAY Potassium Chloride ER 20 MEQ Tablet Extended Release take 1 tablet (20 meq) by oral route 2 times per day with food Oral 2 Vitamin B Complex Capsule Oral Multi-Vitamin Tablet take 1 tablet by oral route once Oral 1 Pepcid 20 MG Tablet take 1 tablet (20 mg) by oral route once daily at bedtime Oral 1 Benzonatate 200 MG Capsule 1 capsule Orally Three times a day Taking Baclofen 10 MG Tablet 1 tablet as needed Orally bedtime Taking buPROPion HCl ER (XL) 300 MG Tablet Extended Release 24 Hour take 1 tablet (300 mg) by oral route once daily Oral 1 Taking Carvedilol 12.5 MG Tablet take 1 tablet (12.5 mg) by oral route 2 times per day with food Oral 2 Taking Furosemide 40 MG Tablet Oral Taking Allopurinol 300 MG Tablet take 1 tablet (300 mg) by oral route once daily Oral 1 Taking Albuterol Sulfate HFA 108 (90 Base) MCG/ACT Aerosol Solution prn Inhalation Taking predniSONE 5 MG Tablet TAKE 1 TABLET BY MOUTH EVERY DAY Taking Potassium Chloride ER 20 MEQ Tablet Extended Release take 1 tablet (20 meq) by oral route 2 times per day with food Oral 2 Taking Vitamin B Complex Capsule Oral Taking Multi-Vitamin Tablet take 1 tablet by oral route once Oral 1 Taking Pepcid 20 MG Tablet take 1 tablet (20 mg) by oral route once daily at bedtime Oral 1 Taking Benzonatate 200 MG Capsule 1 capsule Orally Three times a day Not-TakingClotrimazole 10mg prn for thrush , Notes to Pharmacist: *[facility]*Medication List reviewed and reconciled with the patientNot-Taking Clotrimazole 10mg prn for thrush , Notes to Pharmacist: *Pick strength-form from [facility] for eRX*Medication List reviewed and reconciled with the patient * Allergies: K eflex: Allergy - Onset Date 03/28/2018Tramadol: Reaction: migraines - Allergy - Onset Date 03/28/2018no[Allergies Verified] Objective: * Vitals: B P:120/80mm Hg, HR:63/min, Temp:97.2F, Oxygen sat %:93%, Wt:190lbs, Ht:69in, BMI:28.06Index. * Examination: G eneral Examination: General appearance: a lert, well-nourished and in no acute distress. Head: n ormocephalic, atraumatic. Eyes: n ormal. Skin: n o rash. Lungs: r espiratory effort normal. N eurology: Speech: n ormal. P sychiatry: Affect / mood: a ppropriate. R heumatology: R 2nd MCP mildly tender and mildly enlarged. Assessment: * Assessment: 1. I nflammatory arthritis - M19.90 (Primary) 2 . G out, unspecified cause, unspecified chronicity, unspecified site - M10.9 3 . D ecreased GFR - R94.4 4 . M ultiple myeloma, remission status unspecified - C90.00 5 . H earing loss of right ear, unspecified hearing loss type - H91.91 she wants to be checked for temporal arteritis, will order CRP, refer to Dr. Montague (ENT). Plan: * Treatment: * Procedure Codes: * Billing Information: * Visit Code: 51488 Office Visit, Est Pt., Level 4. * Procedure Codes: * Sign off status: Completed true * Provider: Crow JADE MD Date: 0 03/06/2024 Generated for Francois cisneros/Nneka/Raine on: 0 02/18/2025 12:50 PM CDT History and Physical Notes * HPI (History of Present Illness) Category Sub-Category Detail Notes Category Not es General Follow up lucila prednisone 5mg/day, unable to taper off, taking KIMBERLY Hibiscus supplements, arthritis stable, takes ibuprofen sometimes, back and hands feel stiff did not tolerate arava due to diarrhea, stopped MTX due to SOB (chest CT: COPD with minimal interstitial lung disease, hx of smoking), had covid pneumonia in 09/2020, has had some breathing problem, 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 ESR ranged from 50's to 77 hx of skin cancer GFR 47. saw renal, stopped ibuprofen, GFR went up to 60 Examination Category Sub-Category Detail Notes Category Not es Rheumatology R 2nd MCP mildly tender and mildly enlarged Neurology Speech: normal Psychiatry Affect / mood: appropriate General Examination General appearance: alert, w ell-nourished and in no acute distress Head: normocephalic, atrau matic Eyes: normal Lungs: respiratory effort n ormal Skin: no rash
--- OUTSIDE RECORDS SUMMARY | 2025-02-18 12:50 | XMS_ITS | Encounter Summary ---
Author Organization [facility] Healthcare Address [address] [place] [address] Care Team Providers Care Ethylbenzene Cracking Supervisor Name Role Phone Herlinda Chakraborty NP Primary Care Provider [phone] Scooter Orta MD Unavailable [phone] Jonah Farrell MD Unavailable [phone] Vanessa Youngblood NP Unavailable [phone] Telly Baker RN Unavailable [phone] Dejon Mosley MD Primary Care Provider + Chencho Cesar PT Unavailable Unavailab Joseph Marks MD Unavailable [phone] Gerardo Bass MD Unavailable [phone] Reason for Visit * Reason Onset Date Comments Scheduling Appointments 09/11/2020 Called f or DEXA appointment, No answer Encounter Details Date Type Department Care Team (Late st Contact Info) Description 09/11/2020 Telephone [facility] [address] [place] [address] Tania Jennings RT Scheduling Appointments (Called for DEXA appointment, No answer) Social History Tobacco Use Types Packs/Day Years Used Date Smoking Tobacco: Former Smokeless Tobacco: Former Alcohol Use Standard Drinks/Week Comments No 0 (1 standard drink = 0.6 oz pur e alcohol) PHQ-2 Answer Date Recorded PHQ-2 Score 0 04/16/2020 Comments No Sex and Gender Information Value Date Recorded Sex Assigned at Not on file Legal Sex Female 9:51 AM SOLUTION M[employer]ER Gender Identity Not on file Sexual Orientation Straight 06/11/2020 9: 11 PM CDT documented as of this encounter Plan of Treatment Not on file documented as of this encounter Visit Diagnoses Not on filedocumented in this encounter Additional Health Concerns Infection Onset Date Last Indicated Resolved Time COVID19 Comment:Patient tested positive for COVID-19 on 10/02/20 at [facility]. 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 10/26/2020 11/02/2020 02/23/2021 3:05 AM C DT COVID: Suspected 04/02/2022 04/02/2022 04/02/2022 10:48 AM CDT COVID: Suspected 05/23/2022 05/23/2022 05/23/2022 8:02 AM CDT MDR gram neg/ESBL 06/20/2023 06/20/2023 documented as of this encounter Care Teams Ethylbenzene Cracking Supervisor Relationship Specialty Start Date End Date Herlinda Chakraborty NP PCP - General Family Medicine 08/21/17 03/07/22 Dejon Mosley MD [address] [address] PCP - General 03/08/22 [place] [id number] [place] [address] Consulting Physician Pulmonary Disease 03/19/20 [place] [id number] [place] [address] Consulting Physician Medical Oncology 03/19/20 04/18/23 Vanessa Youngblood, C[employer]ER [id number] [facility] [address] [place] [address] Nurse Practitioner Medical Oncology 03/19/20 Telly Baker, YUVAL [address] [place] [address] [address] [place] [address] Machine Feller 01/07/21 03/13/22 Chencho Cesar, PT Physical Therapist Physical Therapy 03/23/22 Joseph Moser MD Medical Oncologist/Hematologi st Hematology and Oncology 10/19/22 Gerardo Bass MD [address] [place] [address] Consulting Physician Otolaryngology 10/31/23 documented as of this encounter
--- OUTSIDE RECORDS SUMMARY | 2025-02-18 12:50 | XMS_ITS | Clinical Summary ---
Author Organization [facility] Address [address] [place] [id number] Care Team Providers Care Guide Tour Name Role Phone Scooter Orta MD Unavailable [phone] Vanessa Youngblood NP Unavailable [phone] Dejon Mosley MD Primary Care Provider + Chencho Cesar PT Unavailable Unavailab Joseph Marks MD Unavailable [phone] Gerardo Bass MD Unavailable [phone] Allergies Active Allergy Reactions Criticality Noted Date Comments Cephalexin Dizziness Low Reaction: Vertigo, [id number] Reductase Inhibitors Muscle pain Medium 09/26/2022 Tramadol Unknown Low 07/12/2012 headaches Azithromycin Dizziness Low 10/21/2021 Medications multivitamin (MULTIPLE VITAMINS ORAL) Take by mouth Active vitamin B complex with folic acid tablet Take 1 tablet by mouth daily 10/09/20 19 Active clotrimazole (MYCELEX) 10 mg karo Take 1 tablet (10 mg total) by mouth 5 (five) times a day Active albuterol HFA (PROVENTIL HFA,VENTOLIN HFA,PROAIR HFA) 90 mcg/actuation inhaler INHALE TWO PUFFS BY MOUTH EVERY 4 HOURS NEEDED FOR WHEEZING 8.5 each 1 07/29/20 21 Active allopurinoL (ZYLOPRIM) 300 mg tablet TAKE ONE TABLET BY MOUTH ONCE DAILY 90 tablet 1 09/14/20 21 Active carvediloL (COREG) 12.5 mg tablet TAKE 1 TABLET BY MOUTH TWICE A DAY WITH FOOD 180 tablet 1 10/06/20 21 Active Additional Information Patient taking differently: 25 mg, Half a tab daily (12.5 mg total), Reported on 09/26/2024 furosemide (LASIX) 40 mg tablet TAKE 1 TABLET BY MOUTH ONCE DAILY NEEDED FOR SWELLING 90 tablet 1 11/30/19 22 Active buPROPion XL (WELLBUTRIN XL) 300 mg 24 hr tablet TAKE 1 TABLET BY MOUTH EVERY DAY IN THE MORNING 90 tablet 1 02/26/20 22 Active albuterol 2.5 mg /3 mL (0.083 %) nebulizer solutionIndication s:Wheezing,SOB (shortness of breath) Take 3 mL (2.5 mg total) by nebulization 4 (four) times a day as needed for wheezing or shortness of breath 180 mL 11 05/12/20 22 Active baclofen (LIORESAL) 10 mg tablet TAKE 1 TABLET(10MG)BY ORAL ROUTE AT BEDTIME 05/17/20 22 Active budesonide-formote roL (SYMBICORT) 160-4.5 mcg/actuation inhaler Inhale 2 puffs 2 (two) times a day 07/10/20 22 Active famotidine (PEPCID) 20 mg tablet Take 1 tablet (20 mg total) by mouth daily Active benzonatate (TESSALON) 100 mg capsuleIndications :Cough Take 2 capsules (200 mg total) by mouth nightly as needed for cough 60 capsule 2 03/14/20 23 Active Klor-Con M20 20 mEq CR tablet Take 1 tablet (20 mEq total) by mouth 2 (two) times a day 05/11/20 23 Active HYDROcodone-acetam inophen (NORCO) 5-325 mg per tabletIndications: Pain Take 1 tablet by mouth every 6 (six) hours as needed for pain 20 tablet 06/06/20 23 Active ondansetron ODT (ZOFRAN-ODT) 4 mg disintegrating tablet Take 1 tablet (4 mg total) by mouth every 8 (eight) hours as needed for nausea or vomiting 8 tablet 06/26/20 23 Active predniSONE (DELTASONE) 5 mg tablet Take 1 tablet (5 mg) by mouth daily Active Active Problems Problem Noted Date Diagnosed Date Diarrhea 02/15/2023 Overview (02/15/2023): Added automatically from request for surgery [id number] Ptosis of right breast 08/15/2022 Cervicalgia 12/07/2021 Assessment & Plan (12/07/2021 8:31 PM PROJECT ACCOUNT MANAGER): Taran was helping, so will give short term soma script. Renew hydrocodone. Discussed referreal to pain management. Obtain xr cervical spine Ruptured right breast implant 11/15/2021 Breast pain, right 10/27/2021 Assessment & Plan (10/27/2021 12:06 PM PROJECT ACCOUNT MANAGER): Status post silicone breast implants, concern for silicone leakage And open implant after fall. Will do diagnostic bilateral mammogram as she is overdue for regular mammogram After discussing with Radiology. Concern for cellulitis given redness and tenderness. Will treat with Augmentin b.i.d. for 10 days. I asked her to call me if redness Or pain does not improve. Wrist sprain, right, initial encounter Assessment & Plan (10/27/2021 12:04 PM PROJECT ACCOUNT MANAGER): Will obtain x-ray of right wrist. Likely sprain. Continue ice, rest COPD exacerbation 08/12/2021 Assessment & Plan (10/03/2021 9:59 PM PROJECT ACCOUNT MANAGER): Treatment as ordered. Slow prednisone burst and then taper down since she is on chronic prednisone at 5mg daily. Pt voiced understanding. Assessment & Plan (08/12/2021 1:52 PM CDT): Will start doxycyline. Prednisone taper 60mg and then back down and when done can return to 5mg daily. She has a nebulizer at home, but medication is from 2018. Will renew duoneb with recommendation to use at least twice dailly up to qid. May continue to use tessalon perles prn. F/u prn. Cautioned if breathing gets worse over the weekend she should go to ER BLAIR (dyspnea on exertion) 06/14/2021 Stage 3b chronic kidney disease 03/22/2021 Assessment & Plan (04/09/2021 12:32 PM CDT): She has f/u with nephrology pending to establish. Doing okay with medication changes. Will wait for nephrology to recheck lab work. Assessment & Plan (03/22/2021 12:27 PM CDT): Will refer to nephrology. In interim, stop the triam./hctz. Will continue lasix for now. Increase coreg to 12.5mg twice daily for blood pressure regulation. Monitor blood pressure at home and she will send or fax me readings in 1-2 weeks. Decrease potassium supplements to 1 tablet twice dialy since we're stopping the triam/hctz. Decrease allopurinol to 300mg daily to start. She has repeat cmp beginning of April already ordered per oncologist. Statin intolerance 03/09/2021 Assessment & Plan (03/09/2021 6:41 PM CDT): Does not tolerate statins Primary gout 03/09/2021 Other specified health status 03/09/2021 Overview (09/06/2021): Last Assessment & Plan: Does not tolerate statins Mixed hyperlipidemia 06/12/2020 Assessment & Plan (09/09/2021 7:35 PM CDT): Lipid abnormalities are stable, reviewed previous lipid levels in [facility]. Pharmacotherapy as ordered. Order for lipid panel was given today to be obtained. Pt voiced understanding of lab drawn and continuation of current medication regimen. Assessment & Plan (03/09/2021 6:40 PM CDT): Lipid abnormalities are stable, reviewed previous lipid levels in [facility]. Pharmacotherapy as ordered. Order for lipid panel was given today to be obtained. Pt voiced understanding of lab drawn and continuation of current medication regimen. PVC (premature ventricular contraction) 06/12/20 Family history of abdominal aortic aneurysm (AAA ) 06/12/2020 Palpitations 04/16/2020 Assessment & Plan (04/16/2020 8:52 PM CDT): Was told she had CHF. Wants 2nd opinion on necessity of cardiac cath. She is going to go see her husbands information clerk. She will call to make the appt. Agreed to rx carvedilol until established Chronic diastolic heart failure ([facility]) 2018 Overview (08/12/2021): Last Assessment & Plan: Hx of. No acute symptoms. Managed by cardiology. On lasix and carvedilol Assessment & Plan (03/09/2021 6:40 PM CDT): Hx of. No acute symptoms. Managed by cardiology. On lasix and carvedilol Chronic obstructive pulmonary disease 10/09/2019 Assessment & Plan (11/30/2020 12:44 PM PROJECT ACCOUNT MANAGER): Aggravated by post covid pneumonia. Will try tesslon perles at bedtime. 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 Avoiding junk food/fast food. -30 minutes of exercise most days of the week. Increase to 45 minutes for weight loss. Immunizations: Up to date Flu shot given today increase physical activity, continue present plan, routine labs ordered, call if any problems Follow-up in 6 months. Assessment & Plan (09/10/2020 9:34 AM CDT): -Recommended: Healthy diet. Avoiding junk food/fast food. -30 minutes of exercise most days of the week. Increase to 45 minutes for weight loss. Immunizations: Recommended Shingrix vaccination discussed, recommended influenza vaccine lose weight, increase physical activity, follow low fat diet, continue present plan Follow-up in 6 months. Assessment & Plan (09/04/2019 11:32 AM CDT): -Recommended: Healthy diet. Avoiding junk food/fast food. -30 minutes of exercise most days of the week. Increase to 45 minutes for weight loss. -Mammogram every 1 year - order given -Influenza vaccine every year she will return next week for high dose flu vaccine, which we are out of this week. -updated on 2nd pneumonia vaccine today -F/u in 1 year for Annual PE or sooner if needed Insomnia secondary to depression with anxiety Assessment & Plan (09/04/2019 11:36 AM CDT): Will add clonazepam to use bid prn. Discussed using mostly at night. Pt voiced understanding. Lupus anticoagulant disorder ([facility]) 9 Overview (08/12/2021): Last Assessment & Plan: Will repeat lab tests. Continues to have fatigue on/off. Assessment & Plan (03/06/2019 10:07 AM CDT): Will repeat lab tests. Continues to have fatigue on/off. Radiculopathy with lower extremity symptoms 02/18 Assessment & Plan (03/06/2019 10:30 AM CDT): Positive EMG. I would like to get the original report. With the typewritten results on it. I told her the 1st step would be to pursue a repeat MRI of her low back. She has had low back surgery in 2010. She states that she deals with a low back pain and is fairly intermittent with having her activity. She was just concerned about worsening symptoms of she left it alone. At this time she is going to wait and see how things go. Obesity 03/06/2019 Overview (08/12/2021): Last Assessment & Plan: BMI Follow-up includes: nutrition counseling She may see a weight loss physician about saxenda. Assessment & Plan (04/16/2020 8:43 PM CDT): BMI Follow-up includes: nutrition counseling She may see a weight loss physician about saxenda. Assessment & Plan (03/06/2019 10:31 AM CDT): BMI Follow-up includes: nutrition counseling. Thrush 12/26/2018 Assessment & Plan (03/09/2021 6:43 PM CDT): Chronic on/off due to inhaler use. Renew mycelex troches Assessment & Plan (12/26/2018 2:23 PM PROJECT ACCOUNT MANAGER): She has a hx of thrush. She has been on antibiotics twice this past month and continues on her dulera inhaler. I am going to empirically treat her for a thrush, possibly esophageal causing a sore throat and hoarse voice. I started her on diflucan for a week. She has an established ENT. I encouraged her to call the ENT for a f/u appointment as well. Pt voiced understanding. Intractable chronic migraine without aura 2017 Vestibular migraine 07/02/2018 Chronic fatigue 03/20/2018 Assessment & Plan (09/10/2018 3:48 PM CDT): History of multiple concerns. History of myalgias and RF negative rheumatoid. History weakness of all 4 extremities, feeling of cold going down her spine, chronic fatigue, complains of vertigo, blurred vision at times, headaches on and off. She had an MRI done in 07/2008. Findings stated IMPRESSION: MINIMAL TO MILD WHITE MATTER CHANGES, MOST PROMINENT IN THE OCCIPITAL LOBES. IN THE OLDER PATIENT THIS IS MOST COMMONLY DUE TO MICROANGIOPATHY/SMALL WHITE MATTER INFARCTS. IN THE YOUNGER PATIENT, THE DIFFERENTIAL DIAGNOSIS INCLUDES MULTIPLE SCLEROSIS. NO ABNORMAL ENHANCEMENT IDENTIFIED. Reports can be found in Clinical Desktop. Pt tells me that at the time she was told that her eye doctor found other reasons for her blurred vision and that another neurologists told her she didn't have MS. I'm concerned about her current symptoms and previous MRI findings. Will repeat MRI brain. Check labs as ordered. F/u pending results. Immunocompromised 2018 Assessment & Plan (2018 6:09 AM CDT): Patient is currently is on methotrexate for her rheumatoid arthritis Had been on rounds of steroids as well Septic workup is pending-will follow up with blood culture results Will get sputum cultures as well and urine respiratory antigens Inflammatory polyarthropathy 01/30/2018 Assessment & Plan (03/21/2018 7:52 PM CDT): Talked to Dr. Khan per phone, pt's manager latin. Recommending restarting prednisone 10mg daily. She is going to move up appointment to next week to discuss. I called pt and relayed info and told her crp was 60. I told her that I do not thinks he is feeling well as she is now off methotrexate and prednisone after recovering from pneumonia. She will further discuss with Dr. Khan Sensorineural hearing loss, bilateral 01/05/2018 Polymyalgia rheumatica (CMS/HCC) 08/23/2017 Long-term current use of hig h risk medication other than anticoagulant 05/10/2017 Chronic depression 09/08/2014 Overview (08/12/2021): Single major depressive episode Single major depressive episode Last Assessment & Plan: Stable on current medication. Slightly improved since increase. Continue effexor as ordered. May follow up in 6 months Assessment & Plan (04/09/2021 12:33 PM CDT): Stable on current medication. Slightly improved since increase. Continue effexor as ordered. May follow up in 6 months Assessment & Plan (03/09/2021 6:42 PM CDT): Increase wellbutrin xl to 300mg daily. F/u 1 month telemedicine for recheck Assessment & Plan (05/17/2020 8:55 PM CDT): Doing well with change to citalopram. Will continue current dose. Will have her f/u 6 months for regular well exam Assessment & Plan (04/16/2020 8:36 PM CDT): Pt is upset She cannot stop thinking about the smoldering melanoma. She focuses on things and keeps thinking about them over and over. She was tearful on and off throughout the OV. I discussed how she thought the Wellbutrin was working for her. She is okay trying something new. Will d/c wellbutrin and try citalopram. Will have her f/u in 1 month via telemedicine for recheck Assessment & Plan (03/06/2019 10:27 AM CDT): Psychological condition is improving with treatment. Continue current treatment regimen. Psychological condition will be reassessed at the next regular appointment Continue wellbutrin. Assessment & Plan (08/23/2018 9:03 PM CDT): Psychological condition is improving with treatment. Continue current treatment regimen. Psychological condition will be reassessed at the next regular appointment. Assessment & Plan (02/22/2018 2:03 PM CDT): She tells me she is having a bad day and overall she is doing ok. She does not want to change, increase or add to the wellbutrin, but keep it the same. Assessment & Plan (08/24/2017 3:26 PM CDT): Improving. She would like to decrease wellbutrin xl to 150mg daily. She feels she is more controlled now. Gastroesophageal reflux disease 09/08/2014 Overview (08/12/2021): Gastroesophageal reflux disease Gastroesophageal reflux disease Last Assessment & Plan: She is asking about Changing from prilosec to pepcid. I told she can try this. She may need to take the pepcid twice daily or she can try zantac twice daily otc. Assessment & Plan (02/22/2018 1:58 PM CDT): She is asking about Changing from prilosec to pepcid. I told she can try this. She may need to take the pepcid twice daily or she can try zantac twice daily otc. Monoclonal paraproteinemia 09/08/2014 Overview (02/24/2017): Monoclonal paraproteinemia Benign hypertension without congestive heart shivam lure 09/08/2014 Overview (02/24/2017): Essential hypertension Assessment & Plan (09/09/2021 7:36 PM CDT): . Stable/ Improved. Blood pressure is adequately controlled on current medication. We will not make any medication changes today. Will have her follow-up in 6 months for continued monitoring and management Assessment & Plan (04/09/2021 12:32 PM CDT): Blood pressure stable since medication changes made. Assessment & Plan (03/09/2021 11:19 AM CDT): Stable/ Improved. Blood pressure is adequately controlled on current medication. We will not make any medication changes today. Will have her follow-up in 6 months for continued monitoring and management Assessment & Plan (04/16/2020 8:22 PM CDT): Continue current medication. Labs as ordered. F/u 6 months Assessment & Plan (03/06/2019 10:26 AM CDT): Hypertension is improving with treatment. Continue current medications. Blood pressure will be reassessed 6 months with recheck. Assessment & Plan (08/23/2018 9:01 PM CDT): Hypertension is improving with treatment. Continue current medications. Blood pressure will be reassessed 6 months. Assessment & Plan (2018 6:10 AM CDT): Will continue with home medications Assessment & Plan (02/22/2018 11:15 AM CDT): Hypertension is improving with treatment. Continue current medications. Blood pressure will be reassessed 6 months. Assessment & Plan (08/24/2017 3:26 PM CDT): Hypertension is stable. Continue current treatment regimen. Dietary sodium restriction. Weight loss. Blood pressure will be reassessed 6 month. Hernia, incisional 01/16/2013 Hyperparathyroidism 08/13/2012 Assessment & Plan (03/09/2021 6:41 PM CDT): Managed by endocrinology Assessment & Plan (04/16/2020 8:23 PM CDT): Hx of. Will recheck TSH Lung nodule Resolved Problems Problem Noted Date Diagnosed Date Resolved Date Preoperative clearance 11/30/202003/09 Assessment & Plan (11/30/2020 12:46 PM PROJECT ACCOUNT MANAGER): 1. Preoperative workup as follows none. 2. Change in medication regimen before surgery: none, continue medication regimen including morning of surgery, with sip of water. 3.. Other measures: none for cataract surgery. 4. Chronic conditions have been optimized for surgery 5. Pt is low risk for cataract surgery Pneumonia due to COVID-19 virus 10/07/2020 03/09/2021 Hyponatremia 10/07/2020 10/10/2020 Coronary artery calcification 06/12/2020 12/20/2021 Atherosclerosis of aorta 10/09/2019 Bronchitis 12/03/2018 12/26/2018 Assessment & Plan (12/03/2018 11:26 AM PROJECT ACCOUNT MANAGER): R/o pneumonia. cxr and cbc with differential. Rapid flu negative, but may have started with influenza. She is on day 7-8 of illness. Still running temp of 101. Hx of RA and is on methotrexate. She is going ot hold methotrexate dose this week. Continue inhalers. Treat with levaquin. BPPV (benign paroxysmal posi tional vertigo), left 07/02/2018 03/09/2021 Fever, unknown origin 03/20/20182017 Elevated glucose 03/20/2018 08/23/2018 Assessment & Plan (03/20/2018 11:14 AM CDT): Check hga1c Urinary urgency 03/14/2018 03/20/2018 Assessment & Plan (03/14/2018 9:58 AM CDT): Will refer to urogynecology. Acute foot pain, left 03/14/20182017 Assessment & Plan (03/14/2018 10:19 AM CDT): Hx stress fractures. Will obtain x-ray today. CAP (community acquired pneumonia) 2018 03/14/2018 Assessment & Plan (2018 6:11 AM CDT): CT was concerning for atypical pneumonia in bilateral lungs. Patient is currently on a compromised due to methotrexate. Will continue with azithromycin and Levaquin Mucinex Duo nebs albuterol old and Pulmicort per respiratory Will trend daily CBC and BMP Moderate persistent asthma w ith acute exacerbation 02/26/2018 08/23/2018 Assessment & Plan (03/05/2018 2:10 PM CDT): Improving since discharge. She will continue nebulizer at home 3-4 times daily. Finish levaquin and prednisone. Refer to pulmonology. May f/u prn Assessment & Plan (2018 6:08 AM CDT): Patient did not have any formal evaluation for asthma per report. Currently on Dulera Will start neb treatments with Pulmicort, duo nebs and albuterol per respiratory protocol Will start on Solu-Medrol Patient will need further evaluation with PFTs on outpatient basis when current acute symptoms resolved Assessment & Plan (03/01/2018 1:08 PM CDT): Mild respiratory distress with diffuse wheezing despite neb treatment 1 hour ago at home and oral steroids and antibiotics. Recommended patient go to the ER and she agreed after discussion. Taken by wheelchair to her car where is going to drive her. Assessment & Plan (02/26/2018 12:51 PM CDT): duoneb treatment given in office. Lung sounds remained wheezy. rocephon 500mg and depo medrol 80mg IM given in office. She will start a 60mg taper of prednisone tomorrow. I tapered her down every 3 days down to 5mg as she has been on long chain quiller tender prednisone in past due to polymalgia, so I did not want to stop it suddenly . Will order nebulizer through home health and she will continue dulera. Start augmentin. CXR, CBC ordered. f/u in 2 days. If breathing or wheezing worsens, then she was counseled she is to go to ER. Lipid screening 02/22/2018 03/14/2018 Assessment & Plan (02/22/2018 1:59 PM CDT): Recheck lipid panel Vestibular neuronitis of left ear 01/05/2018 08/23/2018 Tinnitus of left ear 01/05/2018 018 Mild intermittent asthma, uncomplicated 08/24/2017 11/30/2020 Assessment & Plan (02/22/2018 1:57 PM CDT): Asthma is worsening. The patient is experiencing weekly daytime asthma symptoms. She is experiencing no nighttime asthma symptoms. Discussed monitoring symptoms and use of quick-relief medications and contacting us early in the course of exacerbations. Medications: discontinue flovent, start dulera if covered by insurance. wheezing on exam today. Continue albuterol as needed Discussed ways to prevent thrush and use of gentian violent. She does not like using nystatin orally. Assessment & Plan (08/24/2017 3:31 PM CDT): Asthma is worsening. The patient is experiencing weekly daytime asthma symptoms. She is experiencing no nighttime asthma symptoms. Discussed monitoring symptoms and use of quick-relief medications and contacting us early in the course of exacerbations. Medications: begin flovent. Wheezing on exam. She complained of a cough in the morning. She quit smoking 20 years ago. Until recently she was on a daily dose of prednisone, which I think may have masked symptoms. We discussed use of steroid inhaler. Continue albuterol inhaler as needed. Hypokalemia 08/24/2017 08/23/2018 Assessment & Plan (08/24/2017 3:30 PM CDT): She will increase potassium 20meq to 4 times daily. Recheck potassium tomorrow. Order given. We discussed eliminating dyazide or decreasing lasix, but pt states that with her autoimmune disorders she ends up swelling quite a bit without these two medications. We will continue to monitor potassium levels. High risk medication use 06/21/201702/2018 Inflammatory polyarthritis 05/10/2017 1 Elevated sed rate 05/10/2017 08/23/2018 Dizziness 09/29/2015 08/24/2017 Overview (02/24/2017): Dizziness Polymyalgia rheumatica syndrome 11/07/2014 08/24/2017 Overview (02/24/2017): Polymyalgia rheumatica Drug indicated 08/14/2013 08/24/2017 Overview (02/23/2017): High risk medication use Cramp of extremity 03/01/2013 8 Encounters Date Type Department Care Team Description 11/22/2024 9:15 AM PROJECT ACCOUNT MANAGER Lab [facility] [address] [place] [id number] from Last 3 Months Immunizations Immunization Administration Dates Next Due Influenza, Quadrivalent, Hig h Dose, Preservative Free, Intrr 09/06/2023,09/07/2021,09/08/2020 Influenza, Quadrivalent, Spl it, Intramuscular 11/23/2015 Influenza, Trivalent, High D ose, Split, Preservative Free, Intramuscular 09/11/2019,09/20/2018,08/24/2017 Influenza, Trivalent, IM (MDV) 09/08/2014,2012 Influenza, Unspecified 10/17/2022 Pfizer SARS-CoV-2 Monovalent Vaccination (12+ Yrs) PURPLE 02/12/2021,01/11/2021 Pneumococcal Conjugate PCV 13 02/22/2017 Pneumococcal Polysaccharide PPV23 09/04/2019,10/2013 Surgical History Surgery Date Site/Laterality Comments PARATHYROIDECTOMY 11/20/2011 - 11/19/2012 Parathyroidectomy CHOLECYSTECTOMY Cholecystectomy TUBAL LIGATION Bilateral tubal ligation CARPAL TUNNEL RELEASE Carpal tunnel release APPENDECTOMY Appendectomy HERNIA REPAIR Hernia repair LUMBAR LAMINECTOMY 11/20/2010 - 11/19/2011 lumbar laminectomy 2010 BUNIONECTOMY bunionectomy 1998 COLONOSCOPY EYE SURGERY 11/2020 and 12/2020 Bilateral TOTAL ABDOMINAL HYSTERECTOMY 11/20/2003 - 11/19/2004 Hysterectomy, total AUGMENTATION MAMMAPLASTY 11/20/1979 - 11/19/1980 Bilater al SPINE SURGERY 2010,Lumbar Laminectomy ABDOMINAL SURGERY Mesh 2012 HYSTERECTOMY Medical History Medical History Date Comments Rheumatoid arthritis (HCC) Rheum atoid arthritis; Comments: JOHN 09/09/2014 - Hx Other Medical MGUS; Comments: JOHN 09/09/2014 - Depression Depression Hypertension Hypertension Gastroesophageal reflux disease GERD Migraine Gout gout; Comments: BERNARD 10/09/2014 - Microscopic colitis microscopic colitis; Comments: BERNARD 10/09/2014 - Macular degeneration macular deg eneration; Comments: BERNARD 10/09/2014 - Cataract Smoking previous Smoldering myeloma Pulmonary fibrosis (HCC) Bronchiectasis (HCC) Peptic ulceration Stomach ulcers years ago Autoimmune disease Rheumatoid , smolder ing Myeloma current Skin cancer Anxiety and depression Allergies Acid reflux Family History Medical History Relation Name Comments Alcohol abuse Brother 1 Jase Cancer Brother 1 Jase Heart disease Brother 1 Jase Alcohol abuse Brother 2 Rodríguez COPD Brother 2 Rodríguez Heart attack Brother 2 Rodríguez Heart disease Brother 2 Rodríguez Hypertension Brother 2 Rodríguez Alcohol abuse Brother 3 Jame Heart disease Brother 3 Jame Alcohol abuse Father Jase Arthritis Father Jase Cancer Father Jase Coronary artery disease Father Jase Hemalatha nary artery disease; Heart attack Father Jase Heart disease Father Jase Hyperlipidemia Father Jase Hypertension Father Jase Hypertension; Alcohol abuse Mother Danielle Alzheimer's disease Mother Danielle Arthritis Mother Danielle Cancer Mother Danielle Hypertension Mother Danielle Hypertension; Cancer Other 1 Family history of Cancer; Heart disease Other 2 Family history of Heart disease; Hypertension Other 3 Family history of Hypertension; Stroke Other 4 Family history of Stroke; Heart disease Sister 1 Heart disease; Hypertension Sister 2 Hypertension; Breast cancer Neg Hx Ovarian cancer Neg Hx Thyroid cancer Neg Hx Relation Name Status Comments Brother 1 Jase Brother 2 Rodríguez Brother 3 Jame Father Jase Mother Danielle Other 1 Other 2 Other 3 Other 4 Sister 1 Sister 2 Social History Tobacco Use Types Packs/Day Years Used Date Smoking Tobacco: Former Smokeless Tobacco: Former Tobacco Cessation:Counseling Given: Not Answered Comments:quit smoking 25 years ago Alcohol Use Standard Drinks/Week Comments No 0 (1 standard drink = 0.6 oz pur e alcohol) Humiliation, Afraid, Rape, and Kick questionnair e Answer Date Recorded Within the last year, have y ou been afraid of your partner or ex-partner? No 01/26/2021 Within the last year, have y ou been humiliated or emotionally abused in other ways by your partner or ex-partner? No Within the last year, have y ou been kicked, hit, slapped, or otherwise physically hurt by your partner or ex-partner? No 01/26/2021 Within the last year, have y ou been raped or forced to have any kind of sexual activity by your partner or ex-partner? No 01/26/2021 Social Connection and Isolat ion Panel [NHANES] Answer Date Recorded In a typical week, how many times do you talk on the phone with family, friends, or neighbors? More than three times a week 01/26/2021 How often do you get togethe r with friends or relatives? Once a week 01/26/2021 How often do you attend chur ch or uatsdin services? 1 to 4 times per year 01/26/2021 Do you belong to any clubs o r organizations such as judaism groups, unions, fraternal or athletic groups, or school groups? Yes 01/26/2021 How often do you attend meet ings of the clubs or organizations you belong to? 1 to 4 times per year 01/26/2021 Are you , , di vorced, , never , or living with a partner? 01/26/2021 AUDIT-C Answer Date Recorded Q1: How often do you have a drink containing alc ohol? Monthly or less 05/25/2023 Q2: How many drinks containi ng alcohol do you have on a typical day when you are drinking? 1 or 2 05/25/2023 Q3: How often do you have si x or more drinks on one occasion? Never 05/25/2023 Overall Financial Resource Strain (CARDIA) Answe r Date Recorded How hard is it for you to pa y for the very basics like food, housing, medical care, and heating? Not very hard 01/26/2021 PHQ-2 Answer Date Recorded PHQ-2 Total Score (If total score is 3 or more points, staff should administer the PHQ-9) 0 12/06/2021 Hunger Vital Sign Answer Date Recorded Within the past 12 months, y ou worried that your food would run out before you got the money to buy more. Never true 01/27/20 21 Within the past 12 months, t he food you bought just didn't last and you didn't have money to get more. Never true 01/26/2021 PRAPARE - Transportation Answer Date Re corded In the past 12 months, has l ack of transportation kept you from medical appointments or from getting medications? No 07/2021 In the past 12 months, has l ack of transportation kept you from meetings, work, or from getting things needed for daily living? No 01/26/2021 Housing Stability Vital Sign Answer Dionicio e Recorded In the last 12 months, was t here a time when you were not able to pay the mortgage or rent on time? No 01/26/2021 Number of Places Lived in the Last Year Not on f ile 01/26/2021 In the last 12 months, was t here a time when you did not have a steady place to sleep or slept in a skilled nursing (including now)? No 01/26/2021 Personal Safety Answer Date Recorded Have you ever been in or are you currently in a harmful physical or emotional relationship or is someone making you feel afraid or unsafe? Denies 05/14/2024 Comments No Sex and Gender Information Value Date Recorded Sex Assigned at Not on file Legal Sex Female 9:51 AM PROJECT ACCOUNT MANAGER Gender Identity Not on file Sexual Orientation Straight 06/11/2020 9: 11 PM CDT Obstetrics History Para Term AB IAB SAB Ectopic Multiple Livin g Live Births 2 2 2 Date Outcome GA Total Labor Labor/2nd/3rd Weight Sex Type Anes PTL Ariana A1 A5 Name Clin Term Term Last Filed Vital Signs Vital Sign Reading Time Taken Comments Blood Pressure 144/61 09/26/2024 2:19 PM PROJECT ACCOUNT MANAGER Pulse 87 09/26/2024 2:19 PM PROJECT ACCOUNT MANAGER Temperature 36.4 C (97.5 F) 09/26/2024 2:19 PM PROJECT ACCOUNT MANAGER Respiratory Rate 20 09/26/2024 2:19 PM PROJECT ACCOUNT MANAGER Oxygen Saturation 96% 09/26/2024 2:19 PM PROJECT ACCOUNT MANAGER Inhaled Oxygen Concentration - - Weight 86.6 kg (191 lb) 09/26/2024 2:19 PM PROJECT ACCOUNT MANAGER Height 171.5 cm (5' 7.5 ) 05/14/2024 7:50 AM CDT Body Mass Index 29.47 05/14/2024 7:50 AM CDT Plan of Treatment Health Maintenance Due Date Last Done Comments DTaP/Tdap/Td Vaccine (1 - Tdap) 1960 Hepatitis B Screening 1968 Covid-19 Vaccine (3 - Pfizer risk series) 03/12/2021 02/12/2021, 01/11/2021 Well Visit 65+ 09/07/2022 09/07/2021, 08/21, 09/04/2019 Depression Screening 12/06/2022 12/06/2021, 10/27/2021, 09/30/2021, Additional history exists Zoster Vaccine (2 of 2) 10/31/2024 09/05/2024 Fall Risk Assessment 05/14/2025 05/14/2024, 12/06/2021, 10/27/2021, Additional history exists Osteoporosis Screening-Bone Density Scan 09/18/2025 09/18/2023, 09/14/2020, 06/25/2018, Additional history exists Colon Cancer Screening-Colonoscopy 04/06/2033 04/06/2023, 04/07/2014, 04/03/2014 Pneumococcal vaccine 65+ Completed 019, 02/22/2017, 10/31/2013 Hepatitis C Screening Completed 04/22/2021, 014 Breast Cancer Screening-Mammogram Discontinued 01/06/2023, 10/29/2021, 06/19/2020, Additional history exists Colon Cancer Screening-CT Colonography Discontinued 04/06/2023, 04/07/2014, 04/03/2014 Colon Cancer Screening-DNA Stool Discontinued 04/06/2023, 04/07/2014, 04/03/2014 Colon Cancer Screening-Sigmoidoscopy Discontinued 04/06/2023, 04/07/2014, 04/03/2014 Colon Cancer Screening-FIT Discontinued 08/09, 04/06/2023, 01/17/2023, Additional history exists Influenza Vaccine Completed 08/22/2024, , 10/17/2022, Additional history exists Procedures Procedure Name Priority Date/Time Associated Diagnosis Comments EGFR Routine 11/22/2024 9:14 AM PROJECT ACCOUNT MANAGER PHOSPHORUS Routine 11/22/2024 9:14 AM PROJECT ACCOUNT MANAGER DIFFERENTIAL AUTO Routine 11/22/2024 9:1 4 AM PROJECT ACCOUNT MANAGER CBC WITH AUTO DIFFERENTIAL Routine 11/22/2024 9:14 AM PROJECT ACCOUNT MANAGER COMPREHENSIVE METABOLIC PANEL Routine 11/22/2024 9:14 AM PROJECT ACCOUNT MANAGER CHOLESTEROL, LDL, DIRECT Routine 11/22/2024 9:14 AM PROJECT ACCOUNT MANAGER LIPID PANEL Routine 11/22/2024 9:14 AM PROJECT ACCOUNT MANAGER DEXA AXIAL SKELETON BONE DENSITY 1 OR MORE SITES Schedule Routine, Read Routine (OP Routine) 09/18/2023 10:18 AM CDT Disorder of bone density and structure, unspecified FIT OCCULT BLOOD, FECAL Routine 08/09/2023 11:11 AM CDT COLONOSCOPY 04/06/2023 9:16 AM CDT SCREENING MAMMOGRAM BILATERAL W WICHO W IMPLANTS Schedule Routine, Read Routine (OP Routine) 01/06/2023 3:27 PM PROJECT ACCOUNT MANAGER Screening mammogram, encounter for HEPATITIS PANEL, ACUTE Routine 04/22/2021 11:23 AM CDT from Last 3 Months or Most Recently Relevant to Health Maintenance Results * (ABNORMAL) eGFR (11/22/2024 9:14 AM PROJECT ACCOUNT MANAGER) eGFR 53(L) >=60 mL/min/1. 73 m2 Comment: Interpretive Data Reference Interval Normal >/= 90 mL/min/1.73m2 Mildly decreased* 60 - 89 mL/min/1.73m2 Mildly to moderately decreased 45 - 59 mL/min/1.73m2 Moderately to severely decreased 30 - 44 mL/min/1.73m2 Severely decreased 15 - 29 mL/min/1.73m2 Kidney Failure < 15 mL/min/1.73m2 *Relative to young adult level Estimated glomerular filtration rate is determined by the 2020 CKD-EPI equation recommended by the National Kidney Foundation (A Unifying Approach to GFR Estimation: Recommendations of the NKF-ASK Task Force on Reassessing the Inclusion of Race in Diagnosing Kidney Disease, JASN 2020). The CKD-EPI equation should not be used for patients with unstable renal function and has not been validated in children and those over 70. Current interpretive data was last reviewed 2021. Testing performed by: [facility], [address] [place] [address]., [id number] Blood 11/22/2024 9:14 AM PROJECT ACCOUNT MANAGER 11/22/2024 12:08 PM PROJECT ACCOUNT MANAGER us Dejon Mosley MD LAB BLOOD ORDERABLES Fin al Result GUERLINE SPARKS ([place]) 1 [facility] [place] [address] * Differential, auto (11/22/2024 9:14 AM PROJECT ACCOUNT MANAGER) Neutrophil abs 6.4 1.5 - 6.5 K/cumm Comment:Testing performed by : [facility], [address] [place] [address]., [id number] Imm gran abs 0.0 0.0 - 0.1 K/cumm [facility] ([place]) Comment:Testing performed by : [facility], [address] [place] [address]., [id number] Lymphocyte abs 2.4 0.8 - 3.3 K/cumm [facility] ([place]) Comment:Testing performed by : [address] [address] Monocyte abs 0.8 0.2 - 0.8 K/cumm [facility] ([place]) Comment:Testing performed by : [facility], [address] [place] [address]., [id number] Eosinophil abs 0.3 0.0 - 0.5 K/cumm [facility] ([place]) Comment:Testing performed by : [facility], [address] [place] [address]., [address] Basophil abs 0.1 0.0 - 0.1 K/cumm [facility] ([place]) Comment:Testing performed by : [address] [address] Neutrophil pct 64.5 % [facility] ([place]) Comment: Interpretive Data Percent cell count reference ranges are not reported, since discordance with absolute values may lead to misinterpretation of CBC data. Current Interpretive Data was last revised on 2018. Testing performed by: [address] [address] Imm gran pct 0.3 % [facility] ([place]) Comment: Interpretive Data Percent cell count reference ranges are not reported, since discordance with absolute values may lead to misinterpretation of CBC data. Current Interpretive Data was last revised on 2018. Testing performed by: [address] [address] Lymphocyte pct 24.1 % [facility] ([place]) Comment: Interpretive Data Percent cell count reference ranges are not reported, since discordance with absolute values may lead to misinterpretation of CBC data. Current Interpretive Data was last revised on 2018. Testing performed by: [address] [address] Monocyte pct 8.0 % [facility] ([place]) Comment: Interpretive Data Percent cell count reference ranges are not reported, since discordance with absolute values may lead to misinterpretation of CBC data. Current Interpretive Data was last revised on 2018. Testing performed by: [address] [address] Eosinophil pct 2.6 % [facility] ([place]) Comment: Interpretive Data Percent cell count reference ranges are not reported, since discordance with absolute values may lead to misinterpretation of CBC data. Current Interpretive Data was last revised on 2018. Testing performed by: [address], [address] Basophil pct 0.5 % [facility] ([place]) Comment: Interpretive Data Percent cell count reference ranges are not reported, since discordance with absolute values may lead to misinterpretation of CBC data. Current Interpretive Data was last revised on 2018. Testing performed by: [address], [address] Blood 11/22/2024 9:14 AM PROJECT ACCOUNT MANAGER 11/22/2024 11:55 AM PROJECT ACCOUNT MANAGER us Dejon Mosley MD LAB BLOOD ORDERABLES Fin al Result GUERLINE SPARKS ([place]) 1 [facility] [place] [address] * (ABNORMAL) CBC with auto differential (11/22/2024 9:14 AM PROJECT ACCOUNT MANAGER) WBC 9.9 3.8 - 9.9 K/cumm Comment:Testing performed by : [address], [address] Hgb 11.3(L) 11.9 - 15.5 g/dL [facility] ([place]) Comment:Testing performed by : [address], [address] Hct 35.3(L) 35.6 - 45.5 % [facility] ([place]) Comment:Testing performed by : [address], [address] Plt 277 150 - 400 K/cumm [facility] ([place]) Comment:Testing performed by : [address], [address] MPV 10.8 9.1 - 12.3 fL [facility] ([place]) Comment:Testing performed by : [address], [address] RBC 3.34(L) 3.90 - 5.20 M/cumm [facility] ([place]) Comment:Testing performed by : [address], [address] MCV 105.7(H) 81.3 - 96.4 fL [facility] ([place]) Comment:Testing performed by : [facility], [address] [place] [address], [address] MCH 33.8(H) 27.1 - 33.3 pg [facility] ([place]) Comment:Testing performed by : [facility], [address] [place] [address], [address] MCHC 32.0(L) 32.3 - 35.7 g/dL [facility] ([place]) Comment:Testing performed by : [facility], [address] [place] [address], [address] RDW CV 13.5 11.1 - 14.9 % [facility] ([place]) Comment:Testing performed by : [facility], [address] [place] [address], [address] RDW SD 51.7(H) 35.7 - 48.1 fL [facility] ([place]) Comment:Testing performed by : [facility], [address] [place] [address], [id number] NRBC abs 0.00 0.00 - 0.01 K/cumm [facility] ([place]) Comment:Testing performed by : [facility], [address] [place] [address], [id number] Blood 11/22/2024 9:14 AM PROJECT ACCOUNT MANAGER 11/22/2024 11:55 AM PROJECT ACCOUNT MANAGER us Dejon Mosley MD LAB BLOOD ORDERABLES Kwan al Result [facility] ([place]) 1 [facility] [place] [address] * Phosphorus (11/22/2024 9:14 AM PROJECT ACCOUNT MANAGER) Phosphorus, pl 3.9 2.3 - 4.5 mg/dL Comment:Testing performed by : [address], [address] Blood 11/22/2024 9:14 AM PROJECT ACCOUNT MANAGER 11/22/2024 11:55 AM PROJECT ACCOUNT MANAGER us Dejon Mosley MD LAB BLOOD ORDERABLES Fin al Result Performing Organization Address City/[facility] Co de Phone Number [facility] [place]) 1 [facility] [place] [address] * Cholesterol, LDL, direct (11/22/2024 9:14 AM PROJECT ACCOUNT MANAGER) LDL Cholesterol, Direct 103 <=129 mg/dL Comment: Interpretive Data Ages < or = 19 years Acceptable: <110 mg/dL Borderline high: 110-129 mg/dL High: >or= 130 mg/dL Ages > or = 20 years Optimal: <100 mg/dL Near optimal: 100-129 mg/dL Borderline high: 130-159 mg/dL High: >160 mg/dL Literature References: 1. Expert Panel on Integrated Guidelines for Cardiovascular Health and Risk Reduction in Children and Adolescents. Pediatrics 2011;128:S213 2. NCEP Expert Panel. Circulation 2004;110:227 Current Interpretive Data was last revised on 2018. Testing performed by: [facility], [address] [place] [address], [id number] Blood 11/22/2024 9:14 AM PROJECT ACCOUNT MANAGER 11/22/2024 11:55 AM PROJECT ACCOUNT MANAGER Dejon Mosley MD LAB BLOOD ORDERABLES Fin al Result Performing Organization Address [facility] Co de Phone Number [facility] [place]) 1 [facility] [place] [address] * (ABNORMAL) Lipid panel (11/22/2024 9:14 AM PROJECT ACCOUNT MANAGER) Cholesterol 186 30 - 199 mg/dL Comment: Interpretive Data Ages < or = 19 years Acceptable: <170 mg/dL Borderline high: 170-199 mg/dL High: >or= 200 mg/dL Ages > or = 20 years Desirable: <200 mg/dL Borderline high: 200-239 mg/dL High: >or= 240 mg/dL Literature References: 1. Expert Panel on Integrated Guidelines for Cardiovascular Health and Risk Reduction in Children and Adolescents. Pediatrics 2011;128:S213 2. NCEP Expert Panel. Circulation 2004;110:227 Current Interpretive Data was last revised on 2018. Testing performed by: [facility], [address] [place] [address]., [id number] Triglycerides 211(H) <=149 mg/dL GUERLINE SPAR[facility] ([place]) Comment: Interpretive Data Ages < or = 9 years Acceptable: <75 mg/dL Borderline high: 75-99 mg/dL High: >or= 100 mg/dL Ages 10 to 20 years Acceptable: <90 mg/dL Borderline high: 90-129 mg/dL High: >or= 130 mg/dL Ages > or = 20 years Desirable: <150 mg/dL Borderline high: 150-199 mg/dL High: 200-499 mg/dL Very high: >or= 499 mg/dL Literature References: 1. Expert Panel on Integrated Guidelines for Cardiovascular Health and Risk Reduction in Children and Adolescents. Pediatrics 2011;128:S213 2. NCEP Expert Panel. Circulation 2004;110:227 Current Interpretive Data was last revised on 2018. Testing performed by: [address] [address] HDL 50 >=40 mg/dL GUERLINE SPARKS ([place]) Comment: Interpretive Data Ages < or = 19 years Acceptable: >45 mg/dL Borderline low: 40-45 mg/dL Low: <40 mg/dL Ages > or = 20 years Desirable: >or= 60 mg/dL Low: <40 mg/dL Literature References: 1. Expert Panel on Integrated Guidelines for Cardiovascular Health and Risk Reduction in Children and Adolescents. Pediatrics 2011;128:S213 2. NCEP Expert Panel. Circulation 2004;110:227 Current Interpretive Data was last revised on 2018. Testing performed by: [facility], [address] [place] [address]., [id number] LDL, calculated 100 <=129 mg/dL GUERLINE SPARKS ([place]) Comment: Interpretive Data Ages < or = 19 years Acceptable: <110 mg/dL Borderline high: 110-129 mg/dL High: >or= 130 mg/dL Ages > or = 20 years Optimal: <100 mg/dL Near optimal: 100-129 mg/dL Borderline high: 130-159 mg/dL High: >160 mg/dL Calculated using the Martin LDL-C estimating equation. This equation was implemented on 2024. Prior to this date LDL-C was estimated using the Friedewald equation. Literature References: 1. Expert Panel on Integrated Guidelines for Cardiovascular Health and Risk Reduction in Children and Adolescents. Pediatrics 2011;128:S213 2. NCEP Expert Panel. Circulation 2004;110:227 3. Mario M et al. ROXANNA Cardiol. 2020 March 20;5(5):540-548. doi: 10.1001/[email or web address].2020.0013 Current Interpretive Data was last revised on 2024. Testing performed by: [address] [address] Non-HDL Cholesterol 136 mg/dL GUERLINE SPARKS ([place]) Comment: Interpretive Data Ages < or = 19 years Acceptable: <120 mg/dL Borderline high: 120-144 mg/dL High: >145 mg/dL Ages > or = 20 years When triglycerides are >200 mg/dL, Non-HDL cholesterol is a secondary target of therapy with treatment goals that are 30 mg/dL greater than the LDL cholesterol target. Literature References: 1. Expert Panel on Integrated Guidelines for Cardiovascular Health and Risk Reduction in Children and Adolescents. Pediatrics 2011;128:S213 2. NCEP Expert Panel. Circulation 2004;110:227 Current Interpretive Data was last revised on 2018. Testing performed by: [address] [address] Chol/HDL ratio 4 KIM SPARKS ([place]) Comment:Testing performed by : [address] [address] Blood 11/22/2024 9:1 4 AM PROJECT ACCOUNT MANAGER 11/22/2024 11:55 AM PROJECT ACCOUNT MANAGER us Dejon Mosley MD LAB BLOOD ORDERABLES Fin al Result GUERLINE SPARKS ([place]) 1 [facility] Department of Laboratories [place], [place] [id number] * Comprehensive metabolic panel (11/22/2024 9:14 AM PROJECT ACCOUNT MANAGER) [facility] Sodium 138 135 - 145 mmol/L Comment:Testing performed by : [address] [address] Potassium, pl 4.3 3.3 - 4.9 mmol/L [facility] ([place]) Comment:Testing performed by : [facility], [address] [place] [address]., [address] Chloride 101 97 - 110 mmol/L [facility] ([place]) Comment:Testing performed by : [facility], [address] [place] [address]., [address] CO2 24 22 - 32 mmol/L [facility] ([place]) Comment:Testing performed by : [facility], [address] [place] [address], [id number] Anion gap 13 2 - 15 mmol/L [facility] ([place]) Comment:Testing performed by : [facility], [address] [place] [address], [id number] BUN 14 6 - 25 mg/dL [facility] ([place]) Comment:Testing performed by : [facility], [address] [place] [address], [id number] Creatinine 1.09 0.60 - 1.10 mg/dL [facility] ([place]) Comment:Testing performed by : [address], [address] Glucose 80 70 - 199 mg/dL [facility] ([place]) Comment: Interpretive Data Fasting glucose >/= 126 mg/dl is diagnostic for diabetes. Fasting is defined as no caloric intake for at least 8 hours. Fasting glucose between 100 mg/dl to 125 mg/dl is diagnostic of prediabetes. In a patient with classic symptoms of hyperglycemia or hyperglycemic crisis, a random glucose >/= 200 mg/dl is diagnostic for diabetes. In the absence of unequivocal hyperglycemia, results should be confirmed by repeat testing. The classification and Diagnosis of Diabetes Diabetes Care 2021; 46: S19-S40. Current interpretive data was last revised 2022. Testing performed by: [facility], [address] [place] [address]., [address] Calcium 8.8 8.5 - 10.3 mg/dL [facility] ([place]) Comment:Testing performed by : [address] [address] Bilirubin, total 0.3 0.1 - 1.2 mg/dL [facility] ([place]) Comment:Testing performed by : [address] [address] Protein, pl 7.7 6.5 - 8.5 g/dL [facility] ([place]) Comment:Testing performed by : [facility], [address] [place] [address]., [address] Albumin 4.0 3.5 - 5.0 g/dL [facility] ([place]) Comment:Testing performed by : [facility], [address] [place] [address]., [address] Alk phos 123 40 - 130 Units/L [facility] ([place]) Comment:Testing performed by : [facility], [address] [place] [address], [id number] ALT 18 7 - 45 Units/L [facility] ([place]) Comment:Testing performed by : [facility], [address] [place] [address], [id number] AST 33 10 - 45 Units/L [facility] ([place]) Comment:Testing performed by : [facility], [address] [place] [address]., [id number] Blood 11/22/2024 9:14 AM PROJECT ACCOUNT MANAGER 11/22/2024 11:55 AM PROJECT ACCOUNT MANAGER us Dejon Mosley MD LAB BLOOD ORDERABLES Fin al Result GUERLINE SPARKS ([place]) 1 [facility] [place] [address] * Dexa Axial Skeleton Bone Density 1 or 2 Site (09/18/2023 10:18 AM CDT) Anatomical Region Laterality Modality Body N/A Other 09/18/2023 6:51 PM CDT Narrative 09/18/2023 6:52 PM CDT EXAM DESCRIPTION: DEXA AXIAL SKELETON BONE DENSITY 1 OR MORE SITES REASON FOR STUDY: 73 y/o year old F with given history of: DISORDER OF BONE DENSITY AND STRUCTURE, UNSPECIFIED Screening postmenopausal Manager Of Software/Model: [employer] SL (S/N [id number]) CLINICAL INFORMATION: Current height: 69 inches Maximum height: 69.75 inches Weight: 175 pounds Risk factors: Postmenopausal, prior hip/vertebral fracture, adult fracture, steroid use, cancer, asthma or emphysema. COMPARISON: 09/14/2020 Dissimilar scan types or analysis methods precludes assessment for calculating a significant change. FINDINGS: AP LUMBAR SPINE L1-L4: Total BMD is 1.020 g/cm2 T-score is -0.2 LEFT HIP: Total BMD is 0.887 g/cm2 T-score is -0.5 Femoral neck BMD is 0.738 g/cm2 T-score is -1.0 FRAX: FRAX not reported due to T-scores of hip, femoral neck and/or spine being at or above -1.0 (Normal). IMPRESSION: Normal bone mass. REFERENCE: Bone mineral density: Normal (T-score above or = -1.0) Low bone mass (T-score between -1.0 and -2.5) replaces the previously used term osteopenia Osteoporosis (T-score = or below -2.5) Medical evaluation for secondary causes of low bone mineral density may be appropriate. FRAX is a World Health Organization validated fracture risk assessment tool that calculates a person's 10 year probability of a major osteoporosis related fracture and hip fracture. According to the National Osteoporosis Foundation guidelines, postmenopausal women and men age 50 or older with low bone mass and a 10 year probability of a major osteoporosis related fracture = or greater than 20% or a 10 year probability of a hip fracture = or greater than 3% should be considered for treatment. For further information, including treatment recommendations, please refer to the 2019 ISCD Official Positions (http://www.iscd.org) and the NOF's Clinician's Guide to Prevention and Treatment of Osteoporosis (http://www.nof.org/professionals/clinical-guidelines) THIS IS AN ELECTRONICALLY VERIFIED FINAL REPORT 09/18/2023 6:52 PM - Electronically signed by Moo Kohler M.D. MF: BAM Report ID: [id number] Reading Location: [id number] Procedure Note Moo Kohler MD - 09/18/2023 EXAM DESCRIPTION: DEXA AXIAL SKELETON BONE DENSITY 1 OR MORE SITES REASON FOR STUDY: 73 y/o year old F with given history of: DISORDEROF BONE DENSITY AND STRUCTURE, UNSPECIFIED Screening postmenopausal Manager Of Software/Model: [employer] (S/N [id number]) CLINICAL INFORMATION: Current height: 69 inches Maximum height: 69.75 inches Weight: 175 pounds Risk factors: Postmenopausal, prior hip/vertebral fracture, adultfracture, steroid use, cancer, asthma or emphysema. COMPARISON: 09/14/2020 Dissimilar scan types or analysis methods precludes assessment for calculating a significant change. FINDINGS: AP LUMBAR SPINE L1-L4: Total BMD is 1.020 g/cm2 T-score is -0.2 LEFT HIP: Total BMD is 0.887 g/cm2 T-score is -0.5 Femoral neck BMD is 0.738 g/cm2 T-score is -1.0 FRAX: FRAX not reported due to T-scores of hip, femoral neck and/or spine beingat or above -1.0 (Normal). IMPRESSION: Normal bone mass. REFERENCE: Bone mineral density: Normal (T-score above or = -1.0) Low bone mass (T-score between -1.0 and -2.5) replaces thepreviously used term osteopenia Osteoporosis (T-score = or below -2.5) Medical evaluation for secondary causes of low bone mineral density may be appropriate. FRAX is a World Health Organization validated fracture risk assessmenttool that calculates a person's 10 year probability of a major osteoporosisrelated fracture and hip fracture. According to the National OsteoporosisFoundation guidelines, postmenopausal women and men age 50 or older with low bonemass and a 10 year probability of a major osteoporosis related fracture = or greater than 20% or a 10 year probability of a hip fracture = or greaterthan 3% should be considered for treatment. For further information, including treatment recommendations, please referto the 2019 ISCD Official Positions (http://www.iscd.org) and the NOF's Clinician's Guide to Prevention and Treatment of Osteoporosis (http://www.nof.org/professionals/clinical-guidelines) THIS IS AN ELECTRONICALLY VERIFIED FINAL REPORT 09/18/2023 6:52 PM - Electronically signed by Moo Kohler M.D. MF: BAM Report ID: [id number] Reading Location: [place] [address] us Dejon Mosley MD [facility] DXA PROCEDURES Final Result * FIT occult blood, fecal (08/09/2023 11:11 AM CDT) FIT occult blood, fecal Negative Negative GUERLINE BRIDGER ([place]) Comment: Negative result. This test will not detect upper gastrointestinal bleeding; the HemoQuant test (6989)should be ordered if clinically indicated. Test Performed by: [place] [address] Modeling Agency Manager: Scooter Mendez M.D. Ph.D.; CLIA# [id number] Testing performed by: [facility], [address] [place] [address], [id number] Stool 08/09/2023 11:1 1 AM CDT 08/09/2023 6:33 PM CDT us Dejon Mosley MD LAB BODY FLUIDS AND STOO LS ORDERABLES Final Result AIDENJOCY SPARKS ([place]) 1 [facility] [place] [address] * COLONOSCOPY (04/06/2023 9:16 AM CDT) Anatomical Region Laterality Modality Other Narrative Procedure Note Ildefonso Awad MD - 04/06/2023 9:16 AM CDT [facility] Patient Name: Bhavana Mon Procedure Date: 04/06/2023 9:16 AM Date of : 1950 Admit Type: Outpatient Age: 73 Gender: Female Attending MD: Ildefonso Awad M.D. Room: [facility] ENDOSCOPY ROOM 1 Note Status: Finalized Patient Profile: Refer to note in patient chart for documentation of history and physical. Procedure: Colonoscopy Indications: Last colonoscopy: March 2014, Chronic diarrhea, Microscopic colitis Referring MD: Dejon Mosley M.D. Providers: Ildefonso Awad M.D. Impression: - Preparation of the colon was poor. - Hemorrhoids found on perianal exam. - Moderate diverticulosis in the sigmoid colon. Biopsied. - The examination was otherwise normal. Recommendation: - Discharge patient to home. - Resume previous diet. - Continue present medications. - Await pathology results. - Repeat colonoscopy in 10 years for screening purposes. - Return to primary care physician as previously scheduled. Medicines: Propofol per Anesthesia Complications: No immediate complications. Estimated Blood Loss: Estimated blood loss: none. Procedure: Pre-Anesthesia Assessment: - This assessment was completed [Time ofAssessment] prior to the administration of sedation. The benefits, risks and alternatives of theprocedure and sedation were discussed and informed consentwas obtained. All questions were answered. Please referto the signed informed consent document in the medical record. The bowel preparation used was Miralax via split dose instruction. The bowel preparation usedwas bisacodyl tablets via split dose instruction. The scope was passed under direct vision. TheColonoscope [id number] was introduced through the anus and advanced to the the cecum, identified by appendiceal orifice and ileocecal valve. The colonoscopy was performed with moderate difficultydue to a redundant colon. The patient tolerated the procedure well. The quality of the bowelpreparation was poor. The ileocecal valve, appendiceal orifice, and rectum were photographed. Findings: Hemorrhoids were found on perianal exam. Multiple small-mouthed diverticula were found in the sigmoid colon. Biopsies for histology were taken with a cold forceps from theascending colon for evaluation of microscopic colitis. Verification of patient identification for the specimen was done by the physician and nurse using the patient's name and date. Estimated blood loss was minimal. The exam was otherwise without abnormality. Electronically signed by Ildefonso Awad M.D. Ildefonso Awad M.D. 04/06/2023 12:01:11 PM Number of Addenda: 0 Note Initiated On: 04/06/2023 9:16 AM Procedure Code(s): --- Professional --- 72529, Colonoscopy, flexible; with biopsy, single or multiple --- Technical --- 73540, Colonoscopy, flexible; with biopsy, single or multiple Diagnosis Code(s): --- Professional --- K57.30, Diverticulosis of large intestine without perforation orabscess without bleeding K52.839, Microscopic colitis, unspecified K52.9, Noninfective gastroenteritis and colitis, unspecified K64.9, Unspecified hemorrhoids --- Technical --- K57.30, Diverticulosis of large intestine without perforation orabscess without bleeding K52.839, Microscopic colitis, unspecified K52.9, Noninfective gastroenteritis and colitis, unspecified K64.9, Unspecified hemorrhoids CPT copyright 2020 [employer]. All rights reserved. The codes documented in this report are preliminary and upon internet network specialist reviewmay be revised to meet current compliance requirements. Recognized by the [employer] [employer] for promoting quality in endoscopy us Ildefonso Awad MD ENDOSCOPY PROCEDURES Final Re sult * Screening Mammogram Bilateral W Wicho W Implants (01/06/2023 3:27 PM PROJECT ACCOUNT MANAGER) Anatomical Region Laterality Modality Breast Bilateral Mammography 01/06/2023 3:46 PM PROJECT ACCOUNT MANAGER Impressions 01/06/2023 3:46 PM PROJECT ACCOUNT MANAGER There is no mammographic evidence of malignancy. There are bilateral subglandular silicone breast implants with unchanged extracapsular rupture of the right implant. A 1 year screening mammogram is recommended. BI-RADS: 2 - Benign. The patient has been or will be contacted. The patient will be entered into a reminder system with a target due date of 1 year for her next mammogram. Electronically signed by: Gabe Bishop M.D. Narrative 01/06/2023 3:46 PM PROJECT ACCOUNT MANAGER EXAMINATION: SCREENING MAMMOGRAM BILATERAL W WICHO W IMPLANTS ORDERING HEALTHCARE PROVIDER: SELF SCREENING MAMMOGRAM HISTORY: Routine screening mammography. Known right breast implant rupture in October 2021. COMPARISON: 07/11/2022, 10/29/2021, 06/19/2020, 08/24/2016 TECHNIQUE: CC and MLO views of the bilateral breasts were obtained with digital technique using breast tomosynthesis with C view. Computer aided detection was utilized. FINDINGS: DENSITY: The tissue of the bilateral breasts is almost entirely fatty. BREASTS: Bilateral subglandular silicone breast implants are unchanged in appearance. Redemonstrated is extracapsular silicone within the right breast, compatible with the known right breast implant rupture. There are no new suspicious findings in either breast by mammogram. us Self Screening Mammogram IMG MAMMO PROCEDURES Fi nal Result * Hepatitis panel, acute (04/22/2021 11:23 AM CDT) Hep A IgM Nonreactive Nonreactive GUERLINE SPARKS ([place]) Comment: Interpretive Data: If Hep A IgM Ab is reported as Equivocal, a new sample should be drawn in two weeks for testing. Current interpretive data was last revised on 20. Testing performed by: [facility], [address] [place] [address], [place]., [address] Hep B core IgM Nonreactive Nonreactive [facility] ([place]) Comment: Interpretive Data If HepB Core IgM Ab is reported as Equivocal, a new sample should be drawn in two weeks for testing. Current interpretive data was last revised on 20. Testing performed by: [facility], [address] [place] [address]., [address] Hep C Ab Nonreactive Nonreactive [facility] ([place]) Comment: Interpretive Data Nonreactive: Antibodies to HCV not detected. Does NOT exclude the possibility of recent exposure to HCV. Equivocal: Equivocal for HCV antibodies. Supplemental molecular testing will be automatically performed to determine infection status in accordance with current CDC screening recommendations. Reactive: Positive for HCV antibodies. This may represent current or past HCV infection. Supplemental molecular testing will be automatically performed to determine current infection status in accordance with current CDC screening recommendations. Interpretive data was last revised on 2020. Testing performed by: [facility], [address] [place] [address]., [address] HepBsAg Nonreactive Nonreactive GUERLINE SPARKS ([place]) Comment:Testing performed by : [facility], [address] [place] [address]., [id number] Blood specimen (specimen) 04/22/2021 11:23 AM CDT 04/22/2021 4:20 PM CDT Ruddy Pagan MD LAB MICROBIOLOGY - GENE RAL ORDERABLES Final Result GUERLINE SPARKS ([place]) 1 [facility] [place] [address] from Last 3 Months or Most Recently Relevant to Health Maintenance Additional Health Concerns Infection Onset Date Last Indicated MDR gram neg/ESBL 06/20/2023 06/20/[address] [place] [address] [employer] MED[employer]ARE HMO PPO Advance Directives For more information, please contact: [phone] * Full Code (Latest Code Status on File) Date Activated Date Inactivated Comments 04/06/2023 9:11 AM 04/06/2023 5:30 PM * Full Code Date Activated Date Inactivated Comments 10/07/2020 5:08 PM 10/12/2020 7:38 PM * Full Code Date Activated Date Inactivated Comments 03/01/2018 4:59 PM 03/03/2018 3:35 PM Care Teams Guide Tour Relationship Specialty Start Date End Date Dejon Mosley MD [address] [place] [address] PCP - General 03/08/22 [place] [address] [facility] [address] [place] [address] Consulting Physician Pulmonary Disease 03/19/20 Vanessa Youngblood, STORE LEAD [address] [facility] [address] [place] [address] Nurse Practitioner Medical Oncology 03/19/20 Chencho Cesar, YANETH Physical Therapist Physical Therapy 03/23/22 Joseph Moser MD Medical Oncologist/Hematologi st Hematology and Oncology 10/19/22 Gerardo Bass MD [address] [place] [address] Consulting Physician Otolaryngology 10/31/23
--- OUTSIDE RECORDS SUMMARY | 2025-02-18 12:50 | XMS_ITS | Clinical Summary ---
Author Organization [facility] Address [address] [place] [address] Care Team Providers Care Cosmetics Presser Name Role Phone Dejon Mosley MD Primary Care Provider [phone] Source Comments [facility],non-owned Affiliates and Associated Physician Practices is amultiple site organization consisting of ambulatory clinics and hospital sitesin [place], [place], [place] and [place]. This disclosure is being madepursuant to the Care Everywhere program and may not contain all information available regarding this patient. Last updated 18.[facility] Allergies Active Allergy Reactions Criticality Noted Date Comments Tramadol Other Low 07/12/2012 headaches Medications * Be aware that medications may not be up to date on this document. Alwaysverify current medications with the patient. Medication Sig Dispensed Refills Start Date End Date Status albuterol HFA (PROVENTIL; VENTOLIN; PROAIR) 108 (90 Base) MCG/ACT inhaler INHALE TWO PUFFS BY MOUTH EVERY 4 HOURS NEEDED FOR WHEEZING 07/29/2021 Active allopurinol (ZYLOPRIM) 300 MG tablet Take 1 tablet by mouth once daily 03/23/2021 Active aspirin EC (ECOTRIN) 81 MG tablet Take 81 mg by mouth once daily Active benzonatate (TESSALON) 100 MG capsule Take 200 mg by mouth 11/30/2020 Active buPROPion XL 24hr (WELLBUTRIN-XL) 300 MG tablet TAKE 1 TABLET BY MOUTH EVERY DAY IN THE MORNING 09/03/2021 Active carvedilol (COREG) 12.5 MG tablet Take 1 tablet by mouth 2 times daily with morning and evening meal 10/06/2021 Active clotrimazole (MYCELEX) 10 MG karo Take 10 mg by mouth 5 times daily 03/09/2021 Active furosemide (LASIX) 40 MG tablet TAKE 1 TABLET BY MOUTH ONCE DAILY NEEDED FOR SWELLING 11/30/2021 Active HYDROcodone-acetamino phen (NORCO) 5-325 MG tablet Take 1 tablet by mouth 12/16/2021 Active pantoprazole EC (PROTONIX) 20 MG tablet Take 20 mg by mouth once daily 07/09/2021 Active predniSONE (DELTASONE) 5 MG tablet Take 5 mg by mouth once daily 01/03/2022 Active Active Problems Problem Noted Date Diagnosed Date COPD exacerbation 08/12/2021 Overview (04/25/2022): Last Assessment & Plan: Treatment as ordered. Slow prednisone burst and then taper down since she is on chronic prednisone at 5mg daily. Pt voiced understanding. Stage 3b chronic kidney disease 03/22/2021 Overview (04/25/2022): Last Assessment & Plan: She has f/u with nephrology pending to establish. Doing okay with medication changes. Will wait for nephrology to recheck lab work. Last Assessment & Plan: She has f/u with nephrology pending to establish. Doing okay with medication changes. Will wait for nephrology to recheck lab work. Palpitations 04/16/2020 Overview (04/25/2022): Last Assessment & Plan: Was told she had CHF. Wants 2nd opinion on necessity of cardiac cath. She is going to go see her husbands investigator internal revenue. She will call to make the appt. Agreed to rx carvedilol until established Anemia in other chronic diseases classified else where 10/09/2019 Atherosclerosis of aorta 10/09/2019 Chronic diastolic heart failure 10/09/2019 Overview (04/25/2022): Last Assessment & Plan: Hx of. No acute symptoms. Managed by cardiology. On lasix and carvedilol Last Assessment & Plan: Hx of. No acute symptoms. Managed by cardiology. On lasix and carvedilol Last Assessment & Plan: Hx of. No acute symptoms. Managed by cardiology. 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 Stable/ Improved. Blood pressure is adequately controlled on current medication. We will not make any medication changes today. Will have her follow-up in 6 months for continued monitoring and management Chronic depression 09/08/2014 Overview (04/25/2022): Single major depressive episode Last Assessment & Plan: Stable on current medication. Slightly improved since increase. Continue effexor as ordered. May follow up in 6 months Single major depressive episode Single major depressive episode Last Assessment & Plan: Stable on current medication. Slightly improved since increase. Continue effexor as ordered. May follow up in 6 months Last Assessment & Plan: Stable on current medication. Slightly improved since increase. Continue effexor as ordered. May follow up in 6 months Hyperparathyroidism 08/13/2012 Overview (04/25/2022): Last Assessment & Plan: Managed by endocrinology Last Assessment & Plan: Managed by endocrinology Family History Medical History Relation Name Comments Cancer Father Status: d Gout Father Heart Disease Father Hypertension Father Arthritis - Rheumatoid Mother Statu s: Alive Heart Disease Mother Relation Name Status Comments Father Mother Social History Tobacco Use Types Packs/Day Years Used Date Smoking Tobacco: Former Cigarettes Q uit: 07/29/1997 Alcohol Use Standard Drinks/Week Comments No 0 (1 standard drink = 0.6 oz pur e alcohol) Sex and Gender Information Value Date Recorded Sex Assigned at Female 12/31/2021 9:56 AM POLITICAL SCIENTIST Gender Identity Female 12/31/2021 9:56 AM POLITICAL SCIENTIST Sexual Orientation Not on file Last Filed Vital Signs Vital Sign Reading Time Taken Comments Blood Pressure 120/82 04/13/2022 1:09 PM CDT Pulse 66 04/13/2022 1:09 PM CDT Temperature 36.8 C (98.2 F) 04/13/2022 1:09 PM CDT Respiratory Rate 20 04/13/2022 1:09 PM CDT Oxygen Saturation 98% 04/13/2022 1:09 PM CDT Inhaled Oxygen Concentration - - Weight 92.8 kg (204 lb 9.6 oz) 04/13/2022 1:09 P M CDT Height 174 cm (5' 8.5 ) 04/13/2022 1:09 PM CDT Body Mass Index 30.66 04/13/2022 1:09 PM CDT Plan of Treatment Health Maintenance Due Date Last Done Comments BONE DENSITY TESTING 1950 COLOGUARD (AGES 45-75) - COLON CA SCREENING 1950 COLON MONITORING 1950 COLONOSCOPY - COLON CA SCREENING 1950 CT COLONOGRAPHY - COLON CA SCREENING 1950 Colorectal Cancer Screening 1950 FIT - COLON CA SCREENING 1950 FLEX SIG - COLON CA SCREENING 1950 LIPID TESTING 1950 MAMMOGRAM 1950 MEDICARE AWV 12 MONTHS 1950 HEPATITIS C SCREENING 02/26/1967 DTAP/TDAP/TD VACCINES (1 - Tdap) 1968 PNEUMOCOCCAL VACCINE 50+ (1 of 2 - PCV) 1968 ZOSTER VACCINE (1 of 2) 1968 COVID-19 VACCINE (3 - Pfizer risk series) 03/12/2021 02/12/2021, 01/11/2021 Respiratory Syncytial Virus (RSV) Vaccine Pt: or over 60 yrs (1 - 1-dose 75+ series) 2024 INFLUENZA VACCINE (#1) 2024 0, 09/11/2019, 09/20/2018, Additional history exists DEPRESSION SCREENING 11/20/2024 HEPATITIS B VACCINE Aged Out No longe r eligible based on patient's age to complete this topic HIB VACCINE Aged Out No longer eligi ble based on patient's age to complete this topic HPV VACCINE Aged Out No longer eligi ble based on patient's age to complete this topic MENINGOCOCCAL (Group B) VACCINE SHARED DECISION-MAKING Aged Out No longer eligible based on patient's age to complete this topic MENINGOCOCCAL GROUPS A/C/Y/W VACCINE Aged Out No longer eligible based on patient's age to complete this topic Care Teams Cosmetics Presser Relationship Specialty Start Date End Date Dejon Mosley MD [address] [place] [address] PCP - General Internal Medicine 04/13/22
--- OUTSIDE RECORDS SUMMARY | 2025-02-18 12:50 | XMS_ITS | Encounter Summary ---
Author Organization [facility] Address [address] [place] [address] Care Team Providers Care Loss Prevention Analyst Name Role Phone Kimberly Cummings MD Primary Care Provider [phone] Dejon Mosley MD Primary Care Provider [phone] Encounter Details Date Type Department Care Team (Late st Contact Info) Description 04/10/2018 Lab Requisition [facility] Care DermPath Lab [address] [facility], [place] [address] Aníbal Sandy MD [facility] [address] Social History Tobacco Use Types Packs/Day Years Used Date Smoking Tobacco: Former Cigarettes Q uit: 07/29/1997 Alcohol Use Standard Drinks/Week Comments No 0 (1 standard drink = 0.6 oz pur e alcohol) Sex and Gender Information Value Date Recorded Sex Assigned at Female 12/31/2021 9:56 AM WARDROBE CONSULTANT Gender Identity Female 12/31/2021 9:56 AM WARDROBE CONSULTANT Sexual Orientation Not on file documented as of this encounter Plan of Treatment Not on file documented as of this encounter Procedures Procedure Name Priority Date/Time Associated Diagnosis Comments DERMATOPATHOLOGY Routine 04/06/2018 12:0 0 AM CDT documented in this encounter Results * DERMATOPATHOLOGY (04/06/2018 12:00 AM CDT) Case Report Dermatopathology Report Case: [id number] Authorizing Provider: Aníbal Sandy MD Collected: 04/06/2018 12:00 AM Pathologist: Adela Villafana MD Received: 04/10/2018 06:22 AM Specimen: Skin, right lower leg anterior 12:43 PM CDT DERMATOPATHOLOGY LABORATORY Final Diagnosis Specimen A. SKIN, right lower leg anterior: SQUAMOUS CELL CARCINOMA, WELL DIFFERENTIATED (C44.722) 12:43 PM CDT DERMATOPATHOLOGY LABORATORY Clinical History R/O NMSC 12:43 PM CDT DERMATOPATHOLOGY LABORATORY Gross Description Specimen A: Received is one formalin filled container labeled with the patient's name and designated right lower leg anterior. The specimen consists of a shave biopsy measuring 8x6x2 mm. Jar 0. 12:43 PM CDT DERMATOPATHOLOGY LABORATORY Microscopic Description Specimen A. SKIN, right lower leg anterior: Arising in the epidermis and extending into the dermis there are irregularly shaped aggregates of keratinocytes showing evidence of premature cornification. 12:43 PM CDT DERMATOPATHOLOGY LABORATORY Disclaimer An external and internal positive and negative controls are appropriate for the histochemical, immunohistochemical and immunofluorescence stain(s) in this case (if any), except where stated explicitly. The performance characteristics of the stain(s) cited in this report were developed and its performance characteristic determined by the Dermatopathology Laboratory at [facility]. These tests need not be, and therefore are not, approved by the [place] Food and Drug Administration. The tests are used for clinical purposes. Billing Codes Specimen Charges Stain Charges 51760 1 12:43 PM CDT DERMATOPATHOLOGY LABORATORY Embedded Images 12:43 PM CDT DERMATOPATHOLOGY LABORATORY Pathology/Cytolog y TISSUE SPECIMEN FROM SKIN / Unknown 04/06/2018 04/10/2018 6:22 AM CDT Aníbal Sandy MD LAB - PATHOLOGY/CYTO LOGY ORDERABLES DERMATOPATHOLOGY LABORATORY [facility] - Department of Dermatology [address] [place] [address], 5th Floor Lab [address] [phone] documented in this encounter Visit Diagnoses Not on filedocumented in this encounter Care Teams Loss Prevention Analyst Relationship Specialty Start Date End Date Kimberly Cummings MD [address] [facility] [address] [place] [address] PCP - General 07/04/12 04/12/22 Dejon Mosley MD [address] [place] [address] PCP - General Internal Medicine 04/13/22 documented as of this encounter
--- OUTSIDE RECORDS SUMMARY | 2025-02-18 12:50 | XMS_ITS | Clinical Summary ---
Author Organization [facility] Address [address] [place] [address] Care Team Providers Care Label Stamper Name Role Phone Herlinda Chakraborty PLASTER CASTER Primary Care Provider [phone] Allergies Active Allergy Reactions Criticality Noted Date Comments Cephalexin Other (see comments) Low 05/14/2021 Reaction: Vertigo, Tramadol Other (see comments) Low 07/12/2012 headaches headaches Medications albuterol HFA (ProAir HFA) 108 (90 Base) MCG/ACT inhaler INHALE TWO PUFFS BY MOUTH EVERY 4 HOURS NEEDED FOR WHEEZING 10/09/2019 Active allopurinol (ZYLOPRIM) 300 MG tablet Take 1 tablet by mouth 1 (one) time each day 03/23/2021 Active benzonatate (TESSALON) 100 MG capsule Take 2 capsules by mouth every night 11/30/2020 Active buPROPion XL (WELLBUTRIN XL) 300 MG 24 hr tablet Take 1 tablet by mouth 1 (one) time each day Active clotrimazole (MYCELEX) 10 MG karo Take 10 mg by mouth 03/09/2021 Active famotidine (PEPCID) 20 MG tablet Take 1 tablet by mouth at bed time Active Flaxseed, Linseed, (Flax Seed Oil) 1000 MG capsule Take 1 tablet by mouth 1 (one) time each day Active furosemide (LASIX) 40 MG tablet Take 1 tablet by mouth 1 (one) time each day 09/24/2018 Active ipratropium-alb uterol (DUO-NEB) 0.5-2.5 mg/3 mL nebulizer solution 3 mL 02/26/2018 Active mometasone-form oterol (DULERA 100) 100-5 MCG/ACT inhaler Inhale 2 puffs 2 (two) times a day Active pantoprazole (PROTONIX) 20 MG EC tablet Take 1 tablet by mouth 1 (one) time each day Active predniSONE 5 MG tablet Take 1 tablet by mouth 1 (one) time each day 01/15/2019 Active Sennosides 15 MG chewable tablet Chew 1 tablet every night Active carvedilol (COREG) 6.25 MG tablet Take 2 tablets (12.5 mg total) by mouth 2 (two) times a day 05/31/2021 Active potassium chloride (KLOR-CON M20) 20 MEQ CR tablet Take 1 tablet (20 mEq total) by mouth 2 (two) times a day 05/31/2021 Active traMADol (Ultram) 50 MG tablet Take 1 tablet (50 mg total) by mouth every 8 (eight) hours if needed for moderate pain (May take upto 2 tabs daily) 20 tablet 2 05/31/2021 Active Active Problems Problem Noted Date Diagnosed Date Benign essential hypertension 05/14/2021 Stage 3b chronic kidney disease 03/22/2021 Overview (05/14/2021): Last Assessment & Plan: She has f/u with nephrology pending to establish. Doing okay with medication changes. Will wait for nephrology to recheck lab work. Other specified health status 03/09/2021 Overview (05/14/2021): Last Assessment & Plan: Does not tolerate statins Primary gout 03/09/2021 Atherosclerotic heart diseas e of [place] coronary artery without angina pectoris 10/09/2019 Atherosclerosis of aorta 10/09/2019 Chronic diastolic heart failure 10/09/2019 Overview (05/14/2021): Last Assessment & Plan: Hx of. No acute symptoms. Managed by cardiology. On lasix and carvedilol Chronic obstructive pulmonary disease 10/09/2019 Overview (05/14/2021): Last Assessment & Plan: Aggravated by post covid pneumonia. Will try tesslon perles at bedtime. 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 Continues to have fatigue on/off. Obesity 03/06/2019 Overview (05/14/2021): Last Assessment & Plan: BMI Follow-up includes: nutrition counseling She may see a weight loss physician about sofia. Chronic intractable migraine without aura 2017 Chronic fatigue 03/20/2018 Overview (05/14/2021): Last Assessment & Plan: History of multiple concerns. History of myalgias [...] Check labs as ordered. F/u pending results. Polymyalgia rheumatica 08/23/2017 Chronic depression 09/08/2014 Overview (05/14/2021): Single major depressive episode Last Assessment & Plan: Stable on current medication. Slightly improved since increase. Continue effexor as ordered. May follow up in 6 months Gastroesophageal reflux disease 09/08/2014 Overview (05/14/2021): Gastroesophageal reflux disease Last Assessment & Plan: She is asking about Changing from prilosec to pepcid. I told she can try this. She may need to take the pepcid twice daily or she can try zantac twice daily otc. Immunosecretory disorder 09/08/2014 Overview (05/14/2021): Monoclonal paraproteinemia Hyperparathyroidism 08/13/2012 Overview (05/14/2021): Last Assessment & Plan: Managed by endocrinology Immunizations Name Administration Dates Next Due Influenza Split High Dose Pr eservative Free IM 09/08/2020,09/11/2019,09/20/2018,08/24 Influenza TIV (IM) 09/08/2014,10/23/2013 Influenza, Quadrivalent, Wit h Preservative 11/23/2015 Pfizer SARS-COV-2 02/12/2021,01/11/2021 Pneumococcal Conjugate 13-Valent 02/22/2017 Pneumococcal Polysaccharide 09/04/2019, 3 Family History Medical History Relation Comments Hypertension Child Cancer Father Gout Father Heart disease Father Hypertension Father Stroke Father Cancer Mother Dementia Mother Hypertension Mother Hypertension Sibling 1 Heart disease Sibling 2 Cancer Sibling 3 Stroke Sibling 4 Relation Status Comments Child Father Mother Sibling 1 Sibling 2 Sibling 3 Sibling 4 Social History Tobacco Use Types Packs/Day Years Used Date Smoking Tobacco: Former Cigarettes 0 04/13/1967 - 04/13/1996 Alcohol Use Standard Drinks/Week Comments Yes 0 (1 standard drink = 0.6 oz pure alcohol) Alcoholic Drinks/day: Occasional social drink Comments Unknown Sex and Gender Information Value Date Recorded Sex Assigned at Not on file Legal Sex Female 2:53 PM EDT Gender Identity Not on file Sexual Orientation Not on file Last Filed Vital Signs Vital Sign Reading Time Taken Comments Blood Pressure 140/80 05/31/2021 12:27 PM CDT Pulse 66 05/31/2021 12:27 PM CDT Temperature 36.1 C (97 F) 05/31/2021 12:27 PM CDT Respiratory Rate 17 05/31/2021 12:27 PM CDT Oxygen Saturation 89% 05/31/2021 12:27 PM CDT Inhaled Oxygen Concentration - - Weight 97.5 kg (215 lb) 05/31/2021 12:27 PM CDT Height 175.3 cm (5' 9 ) 05/31/2021 12:27 PM CDT Body Mass Index 31.75 05/31/2021 12:27 PM CDT Plan of Treatment Health Maintenance Due Date Last Done Comments Breast Cancer Screening 1950 Colorectal Cancer Screening: Annual FOBT 1998 Colorectal Cancer Screening: Colonoscopy 1998 Colorectal Cancer Screening: Sigmoidoscopy 1998 Influenza Vaccine (#1) 2024 0, 09/11/2019, 09/20/2018, Additional history exists Pneumococcal Vaccine: 65+ Years Completed 09/04/2019, 02/22/2017, 10/31/2013 Hepatitis B Vaccine Aged Out No longe r eligible based on patient's age to complete [place] [address] MEDICARE Member Subscriber Plan / Payer (Ef fective 2014-Present) Name:Bhavana Mon Member ID:[id number] Relation to Subscriber:Self Name:Bhavana Mon Subscriber ID:[id number] Payer ID:Not on file Group ID:Not on file Type:Not on file Address: [place] [id number] [facility] Care Teams Label Stamper Relationship Specialty Start Date End Date Herlinda Chakraborty FNP [address] [place] [address] PCP - General Nurse Practitioner 05/14/21
--- OUTSIDE RECORDS SUMMARY | 2025-02-18 12:50 | XMS_ITS | Encounter Summary ---
Author Organization [facility] Address [address] [place] [address] Phone Care Team Providers Care Strainer Tender Name Role Phone Herlinda Chakraborty NP Primary Care Provider [phone] Shelby Kaplan RN Unavailable [phone] Scooter Orta MD Unavailable [phone] Jonah Farrell MD Unavailable Vanessa Youngblood NP Unavailable [phone] Telly Baker RN Unavailable Dejon Mosley MD Primary Care Provider + Chencho Cesar PT Unavailable Unavailab Joseph Marks MD Unavailable [phone] Gerardo Bass MD Unavailable [phone] Encounter Details Date Type Department Care Team (Late st Contact Info) Description 01/30/2018 Orders Only [facility] ProviderAugustus MD [facility] [place] [address] Social History Tobacco Use Types Packs/Day Years Used Date Smoking Tobacco: Former Smokeless Tobacco: Former Alcohol Use Standard Drinks/Week Comments Yes 0 (1 standard drink = 0.6 oz pur e alcohol) Comments Unknown Sex and Gender Information Value Date Recorded Sex Assigned at Not on file Legal Sex Female 9:51 AM GUIDANCE SERVICES COORDINATOR Gender Identity Not on file Sexual Orientation Straight 06/11/2020 9: 11 PM CDT documented as of this encounter Plan of Treatment Not on file documented as of this encounter Procedures Procedure Name Priority Date/Time Associated Diagnosis Comments DISCHARGE LABORATORY CUMULATIVE REPORT 01/30/2018 12:00 AM CDT documented in this encounter Results * DISCHARGE LABORATORY CUMULATIVE REPORT (01/30/2018 12:00 AM CDT) Narrative 01/30/2018 12:00 AM CDT Ordered by an unspecified provider. us Historical Provider LAB BLOOD ORDERABLES Marla l [...] at [facility]. 10/07/2020 10/07/2020 10/26/2020 3:05 AM GUIDANCE SERVICES COORDINATOR COVID: Recovered Comment:Added based on recent COVID infection. 10/26/2020 11/02/2020 02/23/2021 3:05 AM C DT COVID: Suspected 04/02/2022 04/02/2022 04/02/2022 10:48 AM CDT COVID: Suspected 05/23/2022 05/23/2022 05/23/2022 8:02 AM CDT MDR gram neg/ESBL 06/20/2023 06/20/2023 documented as of this encounter Care Teams Strainer Tender Relationship Specialty Start Date End Date Herlinda Chakraborty NP PCP - General Family Medicine 08/21/17 03/07/22 Dejon Mosley MD [address] [place] [address] PCP - General 03/08/22 Shelby Kaplan RN [address] [place] [address] Wanigan Clerk 03/05/18 03/08/18 [place] [address] [address] Consulting Physician Pulmonary Disease 03/19/20 [place] [address] [place] [id number] Consulting Physician Medical Oncology 03/19/20 04/18/23 Vanessa Youngblood, [place] [address] [address] Nurse Practitioner Medical Oncology 03/19/20 Telly Baker, YUVAL [address] [place] [address] [address] [place] [address] Wanigan Clerk 01/07/21 03/13/22 Chencho Cesar, PT Physical Therapist Physical Therapy 03/23/22 Joseph Moser MD Medical Oncologist/Hematologi st Hematology and Oncology 10/19/22 Gerardo Bass MD [address] [place] [address] Consulting Physician Otolaryngology 10/31/23 documented as of this encounter
--- OUTSIDE RECORDS SUMMARY | 2025-02-18 12:50 | XMS_ITS ---
Author Organization [facility] Address [address] [facility] [address] [place] [address] Care Team Providers Care Apprentice Pattern Maker Name Role Phone Dimitri LEE, Dejon Primary Care Provider Sondra Pimentel Unavailable [phone] Allergies Allergen (clinical drug ingredient) Drug/Non Drug Allergy documented on EMR Reaction Allergy Type Onset Date Status Keflex Unknown Drug Allergy 03/28/2018 Active tramadol Tramadol Reaction: migraines Drug Allergy 03/28/2018 Active REASON FOR VISIT yd/4 month follow up/flc, inflammatory arthritis, Dr. Dejon Mosley Medications Medication SIG (Take, Route, Frequency, Duration) Notes Start Date End Date Status Allopurinol 300 MG take 1 tablet (300 m g) by oral route once daily Oral Once a day for 90 days Active Benzonatate 200 MG 1 capsule Orally Thr ee times a day for 30 day(s) Active Pepcid 20 MG take 1 tablet (20 mg ) by oral route once daily at bedtime Oral 1 Active Multi-Vitamin take 1 tablet by ora l route once Oral 1 Active Carvedilol 12.5 MG take 1 tablet (12.5 mg) by oral route 2 times per day with food Oral 2 Active buPROPion HCl ER (XL) 300 MG take 1 tablet (300 mg) by oral route once daily Oral 1 Active Potassium Chloride ER 20 MEQ take 1 tablet (20 meq) by oral route 2 times per day with food Oral 2 Active Albuterol Sulfate HFA 108 (90 Base) MCG/ACT prn Inhalation Active Furosemide 40 MG Oral Act thu Baclofen 10 MG 1 tablet as needed O rally bedtime Active predniSONE 5 MG TAKE 1 TABLET BY ANGEL EVERY DAY Orally Once a day for 90 days Active Problems Problem Type SNOMED Code ICD Code Onset Dates Problem Status W/U Status Risk Notes Problem Inflammatory arthritis (2880813) Inflammatory arthritis (M19.90) Active confirmed Problem Gout (26647405) Gout, unspecified cause, unspecified chronicity, unspecified site (M10.9) Active confirmed Problem Multiple myeloma (608302741) Multiple myeloma, remission status unspecified (C90.00) Active confirmed Problem Hearing loss (87579380) Hearing loss of right ear, unspecified hearing loss type (H91.91) Active confirmed Vital Signs Temperature 97.0 degrees Fahrenheit 12/10/19 25 Blood pressure systolic 142 mm Hg 12/10/19 25 Blood pressure diastolic 86 mm Hg 025 Heart Rate 81 /min 12/10/2024 Height 69 in 12/10/2024 Weight 190.8 lbs 12/10/2024 BMI 28.17 kg/m2 12/10/2024 Oximetry 92 % 12/10/2024 Height-cm 175.26 cm 12/10/2024 Weight-kg 86.53 kg 12/10/2024 Encounters Encounter Location Date Provider Diagnosis [facility] [address] [facility] [address] [place] [address] 12/10/2024 Sondra Jade Inflammatory arthrit is M19.90 ; Gout, unspecified cause, unspecified chronicity, unspecified site M10.9 ; Decreased GFR R94.4 and Multiple myeloma, remission status unspecified C90.00 Assessments Encounter Date Diagnosis (ICD Code) Assessment Notes Treatment Notes Treatment Clinical Notes Section Notes 12/10/2024 Inflammatory arthritis (ICD-10 - M19.90) arthritis stable for the most part, continue prednisone, return in 4 months 12/10/2024 Gout, unspecified cause, unspecified chronicity, unspecified site (ICD-10 - M10.9) arthritis stable for the most part, continue prednisone, return in 4 months 12/10/2024 Decreased GFR (ICD-10 - R94.4) arthritis stable for the most part, continue prednisone, return in 4 months 12/10/2024 Multiple myeloma, remission status unspecified (ICD-10 - C90.00) arthritis stable for the most part, continue prednisone, return in 4 months Plan Of Treatment Next Appt Details Follow Up: 4 Months, Reason: Provider Name:Sondra Jade, 04/09 10:45:00 AM, [address], [address], [place], [address], Progress Notes * Jamie MONOB:1950 (74 yo F)Acc No.[id number]:12/10/2024 Progress Notes Patient: Bhavana CORDON Provider: Crow JADE MD :1950 A ge:74 Y S ex:Female Date:12/10/2024 Address:[address] [place] [address] , [facility] Pcp:Dejon Mosley MD Subjective: * Chief Complaints: * Y d/4 month follow up/flcInflammatory arthritisDr. Dejon Mosley * HPI: G eneral Follow up: on prednisone 5mg/day, unable to taper off, taking KIMBERLY Hibiscus supplements, off ibupropfen due to kidney issues, hands ache in the morning, knees and L ankle ache sometimes, am stiffness: 20- 30min saw ENT for hearing loss (R ear), had steroid injection, hearing has improved some, wears hearing aid did not tolerate arava due to diarrhea, stopped MTX due to SOB (chest CT: COPD with minimal interstitial lung disease, hx of smoking), uses inhaler saw extractor puller for palpitations, was diagnosed with CHF, now on coreg, did not tolerate statin on allopurinol 300mg/day for gout, had been on 400mg/day, renal decreased dosage, no gout flares sees inside solar sales consultant for smoldering myeloma, BM biopsy 20-30% plasma cells. ESR ranged from 50's -77 hx of skin cancer. * ROS: G eneral / Constitutional: Patient denies f gracy, chills. P atient complains of?fatigue. M usculoskeletal: Patient complains of s ee HPI. S kin: Patient denies r yanet. * Medical History: * Surgical History: H ysterectomy; [id number]; 3315-64-25cfxachfspmv; 7522-32-95Fpxlu ligation; 2018-03-28 * Hospitalization/Major Diagno stic Procedure: [...] note : quit 1996. * Medications: T akingpredniSONE 5 MG Tablet TAKE 1 TABLET BY MOUTH EVERY DAY Orally Once a day Baclofen 10 MG Tablet 1 tablet as needed Orally bedtime buPROPion HCl ER (XL) 300 MG Tablet Extended Release 24 Hour take 1 tablet (300 mg) by oral route once daily Oral 1 Carvedilol 12.5 MG Tablet take 1 tablet (12.5 mg) by oral route 2 times per day with food Oral 2 Furosemide 40 MG Tablet Oral Albuterol Sulfate HFA 108 (90 Base) MCG/ACT Aerosol Solution prn Inhalation Potassium Chloride ER 20 MEQ Tablet Extended Release take 1 tablet (20 meq) by oral route 2 times per day with food Oral 2 Multi-Vitamin Tablet take 1 tablet by oral route once Oral 1 Pepcid 20 MG Tablet take 1 tablet (20 mg) by oral route once daily at bedtime Oral 1 Benzonatate 200 MG Capsule 1 capsule Orally Three times a day Allopurinol 300 MG Tablet take 1 tablet (300 mg) by oral route once daily Oral Once a day Taking predniSONE 5 MG Tablet TAKE 1 TABLET BY MOUTH EVERY DAY Orally Once a day Taking Baclofen 10 MG Tablet [...] Taking Furosemide 40 MG Tablet Oral Taking Albuterol Sulfate HFA 108 (90 Base) MCG/ACT Aerosol Solution prn Inhalation Taking Potassium Chloride ER 20 MEQ Tablet Extended Release take 1 tablet (20 meq) by oral route 2 times per day with food Oral 2 Taking Multi-Vitamin Tablet take 1 tablet by oral route once Oral 1 Taking Pepcid 20 MG Tablet take 1 tablet (20 mg) by oral route once daily at bedtime Oral 1 Taking Benzonatate 200 MG Capsule 1 capsule Orally Three times a day Taking Allopurinol 300 MG Tablet take 1 tablet (300 mg) by oral route once daily Oral Once a day DiscontinuedVitamin B Complex Capsule Oral Medication List reviewed and reconciled with the patientDiscontinued Vitamin B Complex Capsule Oral Medication List reviewed and reconciled with the patient * Allergies: K eflex: Allergy - Onset Date 03/28/2018Tramadol: Reaction: migraines - Allergy - Onset Date 03/28/2018no[Allergies Verified] Objective: * Vitals: B P:142/86mm Hg, HR:81/min, Temp:97.0F, Oxygen sat %:92%, Wt:190.8lbs, Wt- k.53kg, Ht:69in, Ht-cm:175.26cm, BMI:28.17Index, Body Surface Area:2.05. * Examination: G eneral Examination: General appearance: a lert, well-nourished and in no acute distress. Head: n ormocephalic, atraumatic. Eyes: n ormal. Skin: n o rash. Lungs: r espiratory effort normal. N eurology: Speech: n ormal. P sychiatry: Affect / mood: a ppropriate. R heumatology: R 2nd MCP mildly tender, no obvious swelling. Assessment: * Assessment: 1. I nflammatory arthritis - M19.90 (Primary) 2 . G out, unspecified cause, unspecified chronicity, unspecified site - M10.9 3 . D ecreased GFR - R94.4? 4. M ultiple myeloma, remission status unspecified - C90.00 arthritis stable for the mos t part, continue prednisone, return in 4 months Plan: * Treatment: * Procedure Codes: * Follow Up: 4 Months * Billing Information: * Visit Code: 78737 Office Visit, Est Pt., Level 4. * Procedure Codes: * RTISING DISPATCH CLERKS SUPERVISOR Sign off status: Completed true * Provider: Crow JADE MD Date: 0 12/10/2024 Generated for Francois cisneros/Nneka/Raine on: 0 02/18/2025 12:50 PM CDT History and Physical Notes * HPI (History of Present Illness) Category Sub-Category Detail Notes Category Not es General Follow up on prednisone 5mg/day, unable to taper off, taking KIMBERLY Hibiscus supplements, off ibupropfen due to kidney issues, hands ache in the morning, knees and L ankle ache sometimes, am stiffness: 20-30min saw ENT for hearing loss (R ear), had steroid injection, hearing has improved some, wears hearing aid did not tolerate arava due to diarrhea, stopped MTX due to SOB (chest CT: COPD with minimal interstitial lung disease, hx of smoking), uses inhaler saw extractor puller for palpitations, was diagnosed with CHF, now on coreg, did not tolerate statin on allopurinol 300mg/day for gout, had been on 400mg/day, renal decreased dosage, no gout flares sees inside solar sales consultant for smoldering myeloma, BM biopsy 20-30% plasma cells. ESR ranged from 50's -77 hx of skin cancer Examination Category Sub-Category Detail Notes Category Not es Rheumatology R 2nd MCP mildly tender, no obvious swelling Neurology Speech: normal Psychiatry Affect / mood: appropriate General Examination General appearance: alert, w ell-nourished and in no acute distress Head: normocephalic, atrau matic Eyes: normal Lungs: respiratory effort n ormal Skin: no rash
--- OUTSIDE RECORDS SUMMARY | 2025-02-18 12:51 | XMS_ITS | Encounter Summary ---
Author Organization [facility] Address [address] [place] [address] Care Team Providers Care Ash Pit Worker Name Role Phone Unavailable Primary Care Provider Unavailabl e Encounter Details Date Type Department Care Team (Late st Contact Info) Description 10/14/2003 [facility] [address] [place] [phone] Scooter Guevara Social History Tobacco Use Types Packs/Day Years Used Date Smoking Tobacco: Never Assessed Comments Unknown Sex and Gender Information Value Date Recorded Sex Assigned at Not on file Legal Sex Female 2:43 AM GLOBAL SECURITY ARCHITECT Gender Identity Not on file Sexual Orientation Not on file documented as of this encounter Plan of Treatment Not on file documented as of this encounter Visit Diagnoses Not on filedocumented in this encounter
--- OUTSIDE RECORDS SUMMARY | 2025-02-18 12:51 | XMS_ITS | Clinical Summary ---
Author Organization [facility] Address [address] [facility] Attn: Epic Prelude ADT [place] [address] Care Team Providers Care Lamps Tester And Inspector Name Role Phone Unavailable Primary Care Provider Unavailabl e Social History Tobacco Use Types Packs/Day Years Used Date Smoking Tobacco: Never Assessed Comments Unknown Sex and Gender Information Value Date Recorded Sex Assigned at Not on file Legal Sex Female 2:43 AM CHIEF MECHANICAL ENGINEER Gender Identity Not on file Sexual Orientation Not on file Plan of Treatment Health Maintenance Due Date Last Done Comments DTAP/TDAP/TD VACCINES (1 - Tdap) 1968 COLORECTAL SCREENING 1994 Colorectal Cancer Screening 1994 FIT-DNA Q 3 years 1994 FIT/FOBT Q 1 year 1994 Flex Sig/CT Colonography Q 5 years 1994 PNEUMOCOCCAL VACCINE 50+ YEARS (1 of 1 - PCV) 03/02/19 99 ZOSTER VACCINE (1 of 2) 1999 OSTEOPOROSIS SCREENING 2014 RSV VACCINE (60+ or ) (1 - 1-dose 75+ series) 2024 INFLUENZA VACCINE (#1) 2024
--- OUTSIDE RECORDS SUMMARY | 2025-02-18 12:51 | XMS_ITS | Encounter Summary ---
Author Organization [facility] Address [address] [place] [address] Care Team Providers Care Shelf Stocker Name Role Phone Unavailable Primary Care Provider Unavailabl e Encounter Details Date Type Department Care Team (Latest Contact Info) Description 10/28/2003 Inpatient Historical [facility] Bonilla, Torsten Friend MD [address] [facility] [address] [place] [phone] UTERVAGINAL PROLAPSE NOS (Primary Dx) Social History Tobacco Use Types Packs/Day Years Used Date Smoking Tobacco: Never Assessed Comments Unknown Sex and Gender Information Value Date Recorded Sex Assigned at Not on file Legal Sex Female 2:43 AM SOA ARCHITECT Gender Identity Not on file Sexual Orientation Not on file documented as of this encounter Plan of Treatment Not on file documented as of this encounter Visit Diagnoses Diagnosis Uterovaginal prolapse, unspecified- Primary documented in this encounter
--- OUTSIDE RECORDS SUMMARY | 2025-02-18 12:51 | XMS_ITS | Patient Health Record ---
Author Organization [facility] Address [address] [facility] [address] [place] [address] Care Team Providers Care Rewards Consultant Name Role Phone Dejon Mosley MD Primary Care Provider Patience Sondra Reed Unavailable [phone] Allergies Allergen (clinical drug ingredient) Drug/Non Drug Allergy documented on EMR Reaction Allergy Type Onset Date Status Keflex Unknown Drug Allergy 03/28/2018 Active tramadol Tramadol Reaction: migraines Drug Allergy 03/28/2018 Active Reason For Referral No Information Medications Medication SIG (Take, Route, Frequency, Duration) Notes Start Date End Date Status Carvedilol 12.5 MG take 1 tablet (12.5 mg) by oral route 2 times per day with food Oral 2 Active buPROPion HCl ER (XL) 300 MG take 1 tablet (300 mg) by oral route once daily Oral 1 Active Baclofen 10 MG 1 tablet as needed O rally bedtime Active predniSONE 5 MG TAKE 1 TABLET BY ANGEL TH EVERY DAY Orally Once a day for 90 days Active Allopurinol 300 MG take 1 tablet (300 [...] ora l route once Oral 1 Active Potassium Chloride ER 20 MEQ take 1 tablet (20 meq) by oral route 2 times per day with food Oral 2 Active Albuterol Sulfate HFA 108 (90 Base) MCG/ACT prn Inhalation Active Furosemide 40 MG Oral Act thu Problems Problem Type SNOMED Code ICD Code Onset Dates Problem Status W/U Status Risk Notes Problem Inflammatory arthritis (2537778) Inflammatory arthritis (M19.90) Active confirmed Problem Gout (41079815) Gout, unspecified cause, unspecified chronicity, unspecified site (M10.9) Active confirmed Problem Multiple myeloma (740844817) Multiple myeloma, remission status unspecified (C90.00) Active confirmed Problem Hearing loss (46917691) Hearing loss of right ear, unspecified hearing loss type (H91.91) Active confirmed Vital Signs Heart Rate 81 /min 12/10/2024 Temperature 97.0 degrees Fahrenheit 12/10/2024 Height-cm 175.26 cm 12/10/2024 Blood pressure diastolic 86 mm Hg 12/10/2024 Oximetry 92 % 12/10/2024 Weight-kg 86.53 kg 12/10/2024 Height 69 in 12/10/2024 Blood pressure systolic 142 mm Hg 12/10/2024 Weight 190.8 lbs 12/10/2024 BMI 28.17 kg/m2 12/10/2024 Encounters Encounter Location Date Provider Diagnosis [place] [address] [facility] [address] [id number] 03/06/2024 Sondra Du Inflammatory arthrit is M19.90 ; Gout, unspecified cause, unspecified chronicity, unspecified site M10.9 ; Decreased GFR R94.4 ; Multiple myeloma, remission status unspecified C90.00 and Hearing loss of right ear, unspecified hearing loss type H91.91 [place] [address] [facility] [address] [place] [address] 08/13/2024 Sondra Du Inflammatory arthrit is M19.90 ; Gout, unspecified cause, unspecified chronicity, unspecified site M10.9 ; Decreased GFR R94.4 ; Multiple myeloma, remission status unspecified C90.00 and Hearing loss of right ear, unspecified hearing loss type H91.91 [place] [address] [facility] [address] [address] 12/10/2024 Sondra Du Inflammatory arthrit is M19.90 ; Gout, unspecified cause, unspecified chronicity, unspecified site M10.9 ; Decreased GFR R94.4 and Multiple myeloma, remission status unspecified C90.00 Assessments Encounter Date Diagnosis (ICD Code) Assessment Notes Treatment Notes Treatment Clinical Notes Section Notes 03/06/2024 Inflammatory arthritis (ICD-10 - M19.90) she wants to be checked for temporal arteritis, will order CRP, refer to Dr. Montague (ENT) 08/13/2024 Inflammatory arthritis (ICD-10 - M19.90) she wants to be checked for temporal arteritis, will order CRP, refer to Dr. Montague (ENT) 12/10/2024 Inflammatory arthritis (ICD-10 - M19.90) arthritis stable for the most part, continue prednisone, return in 4 months 12/10/2024 Gout, unspecified cause, unspecified chronicity, unspecified site (ICD-10 - M10.9) arthritis stable for the most part, continue prednisone, return in 4 months 12/10/2024 Decreased GFR (ICD-10 - R94.4) arthritis stable for the most part, continue prednisone, return in 4 months 08/13/2024 Gout, unspecified cause, unspecified chronicity, unspecified site (ICD-10 - M10.9) she wants to be checked for temporal arteritis, will order CRP, refer to Dr. Montague (ENT) 03/06/2024 Gout, unspecified cause, unspecified chronicity, unspecified site (ICD-10 - M10.9) she wants to be checked for temporal arteritis, will order CRP, refer to Dr. Montague ([facility]) 03/06/2024 Decreased GFR (ICD-10 - R94.4) she wants to be checked for temporal arteritis, will order CRP, refer to Dr. Montague ([facility]) 08/13/2024 Decreased GFR (ICD-10 - R94.4) she wants to be checked for temporal arteritis, will order CRP, refer to Dr. Montague (ENT) 12/10/2024 Multiple myeloma, remission status unspecified (ICD-10 - C90.00) arthritis stable for the most part, continue prednisone, return in 4 months 08/13/2024 Multiple myeloma, remission status unspecified (ICD-10 - [...] order CRP, refer to Dr. Montague (ENT) 08/13/2024 Hearing loss of right ear, unspecified hearing loss type (ICD-10 - H91.91) she wants to be checked for temporal arteritis, will order CRP, refer to Dr. Montague (ENT) Plan Of Treatment Pending Test Test Name Order Date C-Reactive Protein, Quant 10/24/2023 Next Appt Details Provider Name:Sondra Khan, 04/09 10:45:00 AM, [address], [facility] [address], [place], [address], Insurance Providers Payer Name Payer Address Payer Phone Subscriber Number Group Number Insured Name Patient Relationship to Insured Coverage Start Date Coverage End Date [employer] [address] [place] [address] [id number] Bhavana Mon Self - patient is the insured [employer] [address] [place] [address] [id number] Bhavana Mon Self - patient is the insured [employer] [address] [place] [address] [id number] Bhavana Mon Self - patient is the insured DO NOT USE AR [id number] Bhavana Mon Self - patient is the insured 8 DO NOT USE AR [id number] Bhavana Mon Self - patient is the insured Medical (General) History Medical History History ICD Code Gout; Inflammatory arthritis; Polymyalgia Rheumatica; Surgical History Surgery Date(Month/Year) Hysterectomy; 2018-03-28 implants; 2018-03-28 parathyroid; 2018-03-28 Tubal ligation; 2018-03-28
--- OUTSIDE RECORDS SUMMARY | 2025-02-18 12:51 | XMS_ITS | Encounter Summary ---
Author Organization [facility] Address [address] [place] [address] Care Team Providers Care Explosive Operator Bomb Name Role Phone Unavailable Primary Care Provider Unavailabl e Encounter Details Date Type Department Care Team (Latest Contact Info) Description 07/10/2003 Outpatient Historical [facility] Rian Aldana MD NO ADDRESS ON FILE PROLAPSE OF VAGINAL WALL (Primary Dx) Social History Tobacco Use Types Packs/Day Years Used Date Smoking Tobacco: Never Assessed Comments Unknown Sex and Gender Information Value Date Recorded Sex Assigned at Not on file Legal Sex Female 2:43 AM ENTRY REP Gender Identity Not on file Sexual Orientation Not on file documented as of this encounter Plan of Treatment Not on file documented as of this encounter Visit Diagnoses Diagnosis Prolapse of vaginal ty without mention of uterine prolapse- Primary documented in this encounter
--- OUTSIDE RECORDS SUMMARY | 2025-02-18 12:51 | XMS_ITS | Data Portability ---
Author Organization [facility] Main Office Address [address] [place] [address] Care Team Providers Care Loom Doffer Name Role Phone KISHA BLACKJEANNE Primary Care Provider MARGA PAGE [employer] Developer Assessment No assessment recorded. Plan of Treatment Reminders Order Date Submit Date Provider Last Modified By Organization Details Last Modified Time Details Appointments None record ed. Lab None record ed. Referral None record ed. Procedures None record ed. Surgeries None record ed. Imaging None record ed. Medication Orders None record ed. Patient TargetsNo targets recorded. Patient Instructions Encounter Date Encounter Id Patient Instructions Last Modified By Organization Details Last Modified Time 09/28/2023 [id number] the patient is currently on oral steroids. We did discuss transtympanic steroids but she is improving. We will do an audiogram this measure her progress [email or web address] Not available 09/28/2023 12:36:01 Reason for Referral None Reported. Results Created Date Observation Date Name Description Value Unit Range Abnormal Flag Note LastModifiedBy Organization Detail LastModifiedTime 09/12/20 23 09/12/2023 audio gram No observ ation record ed. BARCODE Not Available 2022 16:27:10 10/04/20 23 10/04/2023 audio gram + tympa nogra m No observ ation record ed. [email or web address] [facility] [address] [place] [place], [address], 10/04/2023 16:17:28 10/25/20 23 10/25/2023 audio gram + tympa nogra m No observ ation record ed. BARCODE [facility] [address] [place], [address], 10/25/2023 08:41:37 Result Notes None recorded. Problems Name Problem SNOMED Code Status Onset Date Resolution Date Notes Provider Name and Address Organization Details Recorded Time Sensorineural hearing loss 35282044 Active 2022 Hilda Richter RN null, [place] [facility] [employer] 12:33:14 Sudden sensorineural hearing loss 207403658 Active 2022 Gerardo Bass MD [address] [facility] [facility] [address], [place], [address] [place] [address] [employer] 12:35:35 Problem Notes None recorded. Procedures Surgical History Date Name Laterality Status Provider Name and Address Organization Details Recorded Time parathyroidectomy completed SabraREX Dawkins [place] - [facility] [employer] 09/12/2023 16:10:41 Imaging Results Imaging Date Name Status LastModified by Organiz ation Details LastModified Time 09/12/2023 audiogram completed [facility] Information no t available 09/12/2023 16:27:10 10/04/2023 audiogram + tympanogram completed [email or web address] [facility] [address] [place], [address], 10/04/2023 16:17:28 10/25/2023 audiogram + tympanogram completed [facility] [address] [place], [address], 10/25/2023 08:41:37 Procedure Notes None recorded. Medical Equipment None Reported. Allergies Allergen ID Allergen Name Allergen Category Reaction Reaction Severity Criticality Documentation Date Start Date Code Code System Note Provider Name and Address Organization Details Recorded Time 23678 tramadol medicatio n nausea Not available Not available 09/12/2023 64051 RxNorm migra in Sabra Arboleda REX null, [place] [facility] [employer] 15:49:00 70806 azithromy donna medicatio n dizziness Not available Not available 09/12/2023 44270 RxNorm Sabra Arboleda CEDRICKA null, [place] - [facility] [employer] [facility] 15:49:19 50885 cephalexi n medicatio n dizziness Not available Not available 09/12/20231 RxNorm Sabra Arboleda, REX null, [place] - [facility] 3 15:49:31 Medications Name Sig Start Date Stop Date Status Note LastModified by Organization Details LastModified Time furosemide 40 mg tablet Take 1 tablet every day by oral route. active Not Available Not Available No t Available doxycycline hyclate 100 mg capsule TAKE 1 CAPSULE BY MOUTH TWICE A DAY FOR 7 DAYS active Not Available Not Available No t Available carvedilol 12.5 mg tablet TAKE 1.5 TABLETS BY MOUTH ONCE DAILY active Not Available Not Available No t Available hydrocodone 5 mg-acetamin ophen 325 mg tablet TAKE 1 TABLET BY MOUTH THREE TIMES A DAY NEEDED FOR PAIN 09/28 completed Not Available Not Available Not Available fluconazole 200 mg tablet TAKE 1 TABLET BY MOUTH EVERY DAY NEEDED active Not Available Not Available No t Available prednisone 20 mg tablet TAKE 2 TABS DAILY FOR 4 DAYS THEN 1 TAB DAILY FOR 2 DAYS active Not Available Not Available No t Available prednisone 5 mg tablet TAKE 1 TABLET BY MOUTH EVERY DAY active Not Available Not Available No t Available Klor-Con 20 mEq oral packet Take 1 packet twice a day by oral route. active Not Available Not Available No t Available ciprofloxac in 500 mg tablet TAKE 1 TABLET BY MOUTH TWICE A DAY FOR 7 DAYS 09/28 completed Not Available Not Available Not Available sulfamethox azole 800 mg-trimetho prim 160 mg tablet TAKE 1 TABLET BY MOUTH TWICE A DAY FOR 10 DAYS active Not Available Not Available No t Available ondansetron 8 mg disintegrat ing tablet active Not Available Not Available N ot Available prednisone 1 mg tablet TAKE 4 TABLETS BY MOUTH EVERY DAY 09/28 completed Not Available Not Available Not Available baclofen 10 mg tablet TAKE 1 TABLET(10 MG)BY ORAL ROUTE AT BEDTIME active Not Available Not Available No t Available benzonatate 100 mg capsule TAKE 2 CAPSULES (200 MG TOTAL) BY MOUTH NIGHTLY NEEDED FOR COUGH active Not Available Not Available No t Available prednisone 50 mg tablet Take 1 tablet every day by oral route. 09/12 completed Not Available Not Available Not Available ibuprofen 200 mg tablet Take 1 tablet by oral route. active PRN Not Available Not Available No t Available allopurinol 300 mg tablet TAKE 1 TABLET BY MOUTH EVERY DAY active Not Available Not Available No t Available albuterol sulfate HFA 90 mcg/actuati on aerosol inhaler INHALE 2 PUFFS EVERY 4 TO 6 HOURS NEEDED active Not Available Not Available No t Available ondansetron 4 mg disintegrat ing tablet TAKE 1 TABLET BY MOUTH EVERY 8 HOURS NEEDED FOR NAUSEA AND VOMITING active Not Available Not Available No t Available Klor-Con M20 mEq tablet,exte nded release TAKE 1 TABLET BY MOUTH TWICE A DAY active Not Available Not Available No t Available bupropion HCl XL 300 mg 24 hr tablet, extended release TAKE 1 TABLET BY MOUTH EVERY DAY active Not Available Not Available No t Available vitamin B complex active Not Available Not Available Not Available Motrin 200 mg PRN active Not Available Not Available No t Available Tylenol 500 mg caplets prn active Not Available Not Available No t Available multivitami n active Not Available Not Available Not Available formoterol fumarate active Not Available Not Available Not Available budesonide- formoterol HFA 160 mcg-4.5 mcg/actuati on aerosol inhaler TAKE 2 PUFFS BY MOUTH TWICE A DAY active Not Available Not Available No t Available budesonide DR-ER 9 mg tablet,angela yed and extended release TAKE 1 TABLET BY MOUTH EVERY DAY active Not Available Not Available No t Available Paxlovid 300 mg (150 mg x 2)-100 mg tablets in a dose pack TAKE 3 TABLETS BY MOUTH TWICE A DAY FOR 5 DAYS DIRECTED 09/28 completed Not Available Not Available Not Available albuterol 90 mcg-budeson ligia 80 mcg/actuati on HFA aerosol inhaler Inhale by inhalatio n route. active Not Available Not Available No t Available Vitals Date Recorded Body height Body mass index (BMI) Body weight Provider Name and Address Organization Details Last Updated DateTime 09/28/2023 173.99 cm 27.2 kg/m2 30780.94 g Hilda Richter RN [place] [employer] 09/28/2023 12:17:09 Social History Question Answer Notes LastModified by Organizat ion Details LastModified Time Tobacco Smoking Status Former Smoker REX [place], [employer] 09/12/2023 16:10:07 What Is Your Level Of Alcohol Consumption? Occasional Information not available 09/12/2023 When Did You Quit Smoking? 16+yearsdale yung Information not available 09/12/2023 Sex: Unknown Functional Status None recorded. Mental Status None recorded. Family History Relationship Description Onset Age of this Age Resolved Age Notes LastModified by Organization Details LastModified Time Mother Destruction of eardrum [email or web address] Not available 09/12 16:09:07 Brother Nasal sinus problem [email or web address] Not available 2022 16:09:19 Medical History Condition Response CANCER: SPECIFY Y HYPERTENSION Y Gynecological HistoryNo gynecological history recorded. Obstetrics History GPAL:G 0 P 0 0 0 0 Past Encounters Encounter ID Performer Location Encounter Start Date Encounter Closed Date Diagnosis/Indication Diagnosis SNOMED-CT Code Diagnosis ICD10 Code Diagnosis Note [id number] Gerardo Bass MD [facility] [place] [address] [place] [address] 09/28/2023 11:49:21 09/28/2023 15:09:06 Sudden sensorineural hearing loss 697591851 H90.5 Health Concerns Section Related Observation LastModified by Organization Detai ls LastModified Time None Recorded Concern Status LastModified by Organization Details LastModified Time None Recorded Advance Directives Directive None Recorded Payers Encounter Date Sequence Insurance Name Policy Number Policy Shaw Covered Member ID Shaw Member ID Guarantor Name 09/28/2023 1 [place] [id number] Bhavana Mon [id number] Bhavana Mon Notes Date Note Type Note Provider Name and Address Organization Details Recorded Time 09/28/2023 text/html this patient developed sudden sensorineural hearing loss of the right ear 3 weeks ago. She was immediately placed on high-dose prednisone and has experienced improvement. She continues to have some dizziness but does have a history of vestibular migraines as well. An audiogram was done which demonstrated significant sensorineural hearing loss on the right side with only moderate impairment of word recognition scores. An MRI scan was done which was normal. Gerardo Bass MD [address] [place] [address], [place], [address], [facility] 09/28/2023 12:36:21 OBGyn Episode No OBEpisode recorded.
--- OUTSIDE RECORDS SUMMARY | 2025-02-18 12:51 | XMS_ITS | Referral Summary ---
Author Organization [facility] Address [address] [place] [id number] Care Team Providers Care Media Relations Specialist Name Role Phone Scooter Orta MD Unavailable [phone] Vanessa Youngblood NP Unavailable [phone] Dejon Mosley MD Primary Care Provider + Chencho Cesar PT Unavailable Unavailab Joseph Marks MD Unavailable [phone] Gerardo Bass MD Unavailable [phone] Encounters Date Type Department Care Team Description 11/22/2024 9:15 AM CARTON STAMPER Lab [facility] [address] [place] [address] from Last 3 Months Allergies Active Allergy Reactions Criticality Noted Date Comments Cephalexin Dizziness Low Reaction: Vertigo, Uquljov-Rkw-Enu Reductase Inhibitors Muscle pain Medium 09/26/2022 Tramadol [...] for nausea or vomiting 8 tablet 06/26/20 Active predniSONE (DELTASONE) 5 mg tablet Take 1 tablet (5 mg) by mouth daily Active Active Problems Problem Noted Date Diagnosed Date Diarrhea 02/15/2023 Overview (02/15/2023): Added automatically from request for surgery [id number] 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 Renew hydrocodone. Discussed referreal to pain management. Obtain xr cervical spine Ruptured right breast implant 11/15/2021 Breast pain, right 10/27/2021 Assessment & Plan (10/27/2021 12:06 PM CARTON STAMPER): Status post silicone breast implants, concern for [...] encounter Assessment & Plan (10/27/2021 12:04 PM CARTON STAMPER): Will obtain x-ray of right wrist. Likely sprain. Continue ice, rest COPD exacerbation 08/12/2021 Assessment & Plan (10/03/2021 9:59 PM CARTON STAMPER): Treatment as ordered. Slow prednisone burst and [...] are stable, reviewed previous lipid levels in [facility]. Pharmacotherapy as ordered. Order for lipid panel was given today to be obtained. Pt voiced understanding of lab drawn and continuation of current medication regimen. Assessment & Plan (03/09/2021 6:40 PM CDT): Lipid abnormalities are stable, reviewed previous lipid levels in [facility]. Pharmacotherapy as ordered. Order for lipid [...] is going to go see her husbands paper machine supervisor. She will call to make the appt. Agreed to rx carvedilol until established Chronic diastolic heart failure (CMS/HCC) 2018 Overview (08/12/2021): Last Assessment & Plan: Hx of. No acute symptoms. Managed by cardiology. On lasix and carvedilol Assessment & Plan (03/09/2021 6:40 PM CDT): Hx of. No acute symptoms. Managed by cardiology. On lasix and carvedilol Chronic obstructive pulmonary disease 10/09/2019 Assessment & Plan (11/30/2020 12:44 PM CARTON STAMPER): Aggravated by post covid pneumonia. Will try tesslon perles at bedtime. 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 Pt voiced understanding. Lupus anticoagulant disorder ([facility]) 9 Overview (08/12/2021): Last Assessment & [...] troches Assessment & Plan (12/26/2018 2:23 PM CARTON STAMPER): She has a hx of thrush. She [...] Talked to Dr. 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 Recommending restarting prednisone 10mg daily. She is [...] Sensorineural hearing loss, bilateral 01/05/2018 Polymyalgia rheumatica ([facility]) 08/23/2017 Long-term current use of hig h [...] 11/30/202003/09 Assessment & Plan (11/30/2020 12:46 PM CARTON STAMPER): 1. Preoperative workup as follows none. 2. [...] 12/26/2018 Assessment & Plan (12/03/2018 11:26 AM CARTON STAMPER): R/o pneumonia. cxr and cbc with differential. 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 in past due to polymalgia, so [...] medication use Cramp of extremity 03/01/2013 8 Immunizations Immunization Administration Dates Next Due Influenza, Quadrivalent, Hig h Dose, Preservative Free, Intrr 09/06/2023,09/07/2021,09/08/2020 Influenza, Quadrivalent, Spl it, Intramuscular 11/23/2015 Influenza, Trivalent, High D ose, Split, Preservative Free, Intramuscular 09/11/2019,09/20/2018,08/24/2017 Influenza, Trivalent, IM (MDV) 09/08/2014,2012 Influenza, Unspecified 10/17/2022 Pfizer SARS-CoV-2 Monovalent Vaccination (12+ Yrs) PURPLE 02/12/2021,01/11/2021 Pneumococcal Conjugate PCV 13 02/22/2017 Pneumococcal Polysaccharide PPV23 09/04/2019,10/2013 Social History Tobacco Use Types Packs/Day Years [...] 01/26/2021 How often do you attend chur or church services? 1 to 4 times per year 01/26/2021 Do you belong to any clubs o r organizations such as hindu groups, unions, fraternal or athletic groups, or [...] place to sleep or slept in a fpc (including now)? No 01/26/2021 Personal Safety Answer Date Recorded Have you ever been in or are you currently in a harmful physical or emotional relationship or is someone making you feel afraid or unsafe? Denies 05/14/2024 Comments No Sex and Gender Information Value Date Recorded Sex Assigned at Not on file Legal Sex Female 9:51 AM CARTON STAMPER Gender Identity Not on file Sexual Orientation Straight 06/11/2020 9: 11 PM CDT Last Filed Vital Signs Vital Sign Reading Time Taken Comments Blood Pressure 144/61 09/26/2024 2:19 PM CARTON STAMPER Pulse 87 09/26/2024 2:19 PM CARTON STAMPER Temperature 36.4 C (97.5 F) 09/26/2024 2:19 PM CARTON STAMPER Respiratory Rate 20 09/26/2024 2:19 PM CARTON STAMPER Oxygen Saturation 96% 09/26/2024 2:19 PM CARTON STAMPER Inhaled Oxygen Concentration - - Weight 86.6 kg (191 lb) 09/26/2024 2:19 PM CARTON STAMPER Height 171.5 cm (5' 7.5 ) 05/14/2024 7:50 AM CDT Body Mass Index 29.47 05/14/2024 7:50 AM CDT Plan of Treatment Not on file Procedures Procedure Name Priority Date/Time Associated Diagnosis Comments EGFR Routine 11/22/2024 9:14 AM CARTON STAMPER PHOSPHORUS Routine 11/22/2024 9:14 AM CARTON STAMPER DIFFERENTIAL AUTO Routine 11/22/2024 9:1 4 AM CARTON STAMPER CBC WITH AUTO DIFFERENTIAL Routine 11/22/2024 9:14 AM CARTON STAMPER COMPREHENSIVE METABOLIC PANEL Routine 11/22/2024 9:14 AM CARTON STAMPER CHOLESTEROL, LDL, DIRECT Routine 11/22/2024 9:14 AM CARTON STAMPER LIPID PANEL Routine 11/22/2024 9:14 AM CARTON STAMPER DEXA AXIAL SKELETON BONE DENSITY 1 OR MORE SITES Schedule Routine, Read Routine (OP Routine) 09/18/2023 10:18 AM CDT Disorder of bone density and structure, unspecified FIT OCCULT BLOOD, FECAL Routine 08/09/2023 11:11 AM CDT COLONOSCOPY 04/06/2023 9:16 AM CDT SCREENING MAMMOGRAM BILATERAL W WICHO W IMPLANTS Schedule Routine, Read Routine (OP Routine) 01/06/2023 3:27 PM CARTON STAMPER Screening mammogram, encounter for HEPATITIS PANEL, ACUTE Routine 04/22/2021 11:23 AM CDT from Last 3 Months or Most Recently Relevant to Health Maintenance Results * (ABNORMAL) eGFR (11/22/2024 9:14 AM CARTON STAMPER) eGFR 53(L) >=60 mL/min/1. 73 m2 Comment: [...] was last reviewed 2021. Testing performed by: [address] [address] Blood 11/22/2024 9:14 AM CARTON STAMPER 11/22/2024 12:08 PM CARTON STAMPER us Dejon Mosley MD LAB BLOOD ORDERABLES Fin al Result [facility] ([place]) 1 [facility] Department [place] [address] * Differential, auto (11/22/2024 9:14 AM CARTON STAMPER) Pathologist [facility] Neutrophil abs 6.4 1.5 - 6.5 K/cumm Comment:Testing performed by : [facility], [address] [place] [address]., [address] Imm gran abs 0.0 0.0 - 0.1 K/cumm [facility]LINE SPARKS ([place]) Comment:Testing performed by : [facility], [address] [place] [address]., [address] Lymphocyte abs 2.4 0.8 - 3.3 K/cumm [facility]LINE SP[facility] ([place]) Comment:Testing performed by : [address] [address] Monocyte abs 0.8 0.2 - 0.8 K/cumm [facility] ([place]) Comment:Testing performed by : [facility], [address] [place] [address]., [address] Eosinophil abs 0.3 0.0 - 0.5 K/cumm [facility] ([place]) Comment:Testing performed by : [facility], [address] [place] [address]., [address] Basophil abs 0.1 0.0 - 0.1 K/cumm [facility] ([place]) Comment:Testing performed by : [facility], [address] [place] [address]., [address] Neutrophil pct 64.5 % [facility] ([place]) Comment: Interpretive Data Percent cell count reference ranges are not reported, since discordance with absolute values may lead to misinterpretation of CBC data. Current Interpretive Data was last revised on 2018. Testing performed by: [facility], [address] [place] [address]., [address] Imm gran pct 0.3 % [facility] ([place]) Comment: Interpretive Data Percent cell count reference ranges are not reported, since discordance with absolute values may lead to misinterpretation of CBC data. Current Interpretive Data was last revised on 2018. Testing performed by: [address] [address] Lymphocyte pct 24.1 % [facility] ([place]) Comment: Interpretive Data Percent cell count reference ranges are not reported, since discordance with absolute values may lead to misinterpretation of CBC data. Current Interpretive Data was last revised on 2018. Testing performed by: [address] [address] Monocyte pct 8.0 % [facility] ([place]) Comment: Interpretive Data Percent cell count reference ranges are not reported, since discordance with absolute values may lead to misinterpretation of CBC data. Current Interpretive Data was last revised on 2018. Testing performed by: [address] [address] Eosinophil pct 2.6 % [facility] ([place]) Comment: Interpretive Data Percent cell count reference ranges are not reported, since discordance with absolute values may lead to misinterpretation of CBC data. Current Interpretive Data was last revised on 2018. Testing performed by: [address], [address] Basophil pct 0.5 % [facility] ([place]) Comment: Interpretive Data Percent cell count reference ranges are not reported, since discordance with absolute values may lead to misinterpretation of CBC data. Current Interpretive Data was last revised on 2018. Testing performed by: [address], [address] Blood 11/22/2024 9:14 AM CARTON STAMPER 11/22/2024 11:55 AM CARTON STAMPER us Dejon Mosley MD LAB BLOOD ORDERABLES Fin al Result [facility] ([place]) [address] [facility] Department [place] [address] * (ABNORMAL) CBC with auto differential (11/22/2024 9:14 AM CARTON STAMPER) WBC 9.9 3.8 - 9.9 K/cumm Comment:Testing performed by : [address], [address] Hgb 11.3(L) 11.9 - 15.5 g/dL [facility] ([place]) Comment:Testing performed by : [address], [address] Hct 35.3(L) 35.6 - 45.5 % [facility] ([place]) Comment:Testing performed by : [address], [address] Plt 277 150 - 400 K/cumm [facility] ([place]) Comment:Testing performed by : [address], [address] MPV 10.8 9.1 - 12.3 fL [facility] ([place]) Comment:Testing performed by : [address], [address] RBC 3.34(L) 3.90 - 5.20 M/cumm [facility] ([place]) Comment:Testing performed by : [facility], [address] [place] [address], [address] MCV 105.7(H) 81.3 - 96.4 fL [facility] ([place]) Comment:Testing performed by : [address], [address] MCH 33.8(H) 27.1 - 33.3 pg [facility] ([place]) Comment:Testing performed by : [facility], [address] [place] [address], [address] MCHC 32.0(L) 32.3 - 35.7 g/dL [facility] ([place]) Comment:Testing performed by : [facility], [address] [place] [address], [address] RDW CV 13.5 11.1 - 14.9 % [facility] ([place]) Comment:Testing performed by : [facility], [address] [place] [address], [address] RDW SD 51.7(H) 35.7 - 48.1 fL [facility] ([place]) Comment:Testing performed by : [address], [address] NRBC abs 0.00 0.00 - 0.01 K/cumm [facility] ([place]) Comment:Testing performed by : [address], [address] Blood 11/22/2024 9:14 AM CARTON STAMPER 11/22/2024 11:55 AM CARTON STAMPER Dejon Mosley MD LAB BLOOD ORDERABLES Fin al Result [facility] ([place]) [address] [facility] Department [place] [address] * Phosphorus (11/22/2024 9:14 AM CARTON STAMPER) Phosphorus, pl 3.9 2.3 - 4.5 mg/dL Comment:Testing performed by : [address], [address] Blood 11/22/2024 9:14 AM CARTON STAMPER 11/22/2024 11:55 AM CARTON STAMPER us Dejon Mosley MD LAB BLOOD ORDERABLES Fin al Result Performing Organization Address City/[facility] Co de Phone Number [facility] [place]) 1 [facility] [place] [address] * Cholesterol, LDL, direct (11/22/2024 9:14 AM CARTON STAMPER) LDL Cholesterol, Direct 103 <=129 mg/dL Comment: [...] revised on 2018. Testing performed by: [facility], [address] [place] [address]., [address] Blood 11/22/2024 9:14 AM CARTON STAMPER 11/22/2024 11:55 AM CARTON STAMPER Dejon Mosley MD LAB BLOOD ORDERABLES Fin al Result Performing Organization Address [facility] Co de Phone Number [facility] ([place]) 1 [facility] [place] [address] * (ABNORMAL) Lipid panel (11/22/2024 9:14 AM CARTON STAMPER) Cholesterol 186 30 - 199 mg/dL Comment: [...] revised on 2018. Testing performed by: [facility], [address] [place] [address]., [address] Triglycerides 211(H) <=149 mg/dL [facility] ([place]) Comment: Interpretive Data Ages < or [...] revised on 2018. Testing performed by: [facility], [address] [place] [address]., [address] HDL 50 >=40 mg/dL [facility] ([place]) Comment: Interpretive Data Ages < or [...] revised on 2018. Testing performed by: [facility], [address] [place] [address]., [address] LDL, calculated 100 <=129 mg/dL [facility] ([place]) Comment: Interpretive Data Ages < or [...] NCEP Expert Panel. Circulation 2004;110:227 3. Mario Ulloa et al. ROXANNA Cardiol. 2020 March 20;5(5):540-548. doi: 10.1001/jamacardio.2020.0013 Current Interpretive Data was last revised on 2024. Testing performed by: [address] [address] Non-HDL Cholesterol 136 mg/dL GUERLINE SPARKS ([place]) [...] last revised on 2018. Testing performed by: [address] [address] Chol/HDL ratio 4 KIM SPARKS ([place]) Comment:Testing performed by : [address] [address] Blood 11/22/2024 9:14 AM CARTON STAMPER 11/22/2024 11:55 AM CARTON STAMPER us Dejon Mosley MD LAB BLOOD ORDERABLES Fin al Result [facility]LINE SP[facility] ([place]) [address] [facility] Department [place] [address] * Comprehensive metabolic panel (11/22/2024 9:14 AM CARTON STAMPER) [facility] Signature Sodium 138 135 - 145 mmol/L Comment:Testing performed by : [address] [address] Potassium, pl 4.3 3.3 - 4.9 mmol/L [facility] ([place]) Comment:Testing performed by : [facility], [address] [place] [address]., [address] Chloride 101 97 - 110 mmol/L [facility] ([place]) Comment:Testing performed by : [facility], [address] [place] [address]., [address] CO2 24 22 - 32 mmol/L [facility] ([place]) Comment:Testing performed by : [facility], [address] [place] [address], [address] Anion gap 13 2 - 15 mmol/L [facility] ([place]) Comment:Testing performed by : [address], [address] BUN 14 6 - 25 mg/dL [facility] ([place]) Comment:Testing performed by : [address], [address] Creatinine 1.09 0.60 - 1.10 mg/dL [facility] ([place]) Comment:Testing performed by : [address], [address] Glucose 80 70 - 199 mg/dL CERNER [...] was last revised 2022. Testing performed by: [address] [address] Calcium 8.8 8.5 - 10.3 mg/dL [facility] ([place]) Comment:Testing performed by : [address], [address] Bilirubin, total 0.3 0.1 - 1.2 mg/dL [facility] ([place]) Comment:Testing performed by : [address], [place]., [address] Protein, pl 7.7 6.5 - 8.5 g/dL [facility] ([place]) Comment:Testing performed by : [address], [address] Albumin 4.0 3.5 - 5.0 g/dL [facility] ([place]) Comment:Testing performed by : [address], [address] Alk phos 123 40 - 130 Units/L [facility] ([place]) Comment:Testing performed by : [address], [address] ALT 18 7 - 45 Units/L [facility] ([place]) Comment:Testing performed by : [address], [address] AST 33 10 - 45 Units/L [facility] ([place]) Comment:Testing performed by : [address], [address] Blood 11/22/2024 9:14 AM CARTON STAMPER 11/22/2024 11:55 AM CARTON STAMPER us Dejon Mosley MD LAB BLOOD ORDERABLES Fin al Result [facility] ([place]) [address] [facility] [place] [address] * Dexa Axial Skeleton Bone Density 1 or 2 Site (09/18/2023 10:18 AM CDT) Anatomical Region Laterality Modality Body N/A Other 09/18/2023 6:51 PM CDT Narrative 09/18/2023 6:52 PM CDT EXAM DESCRIPTION: DEXA AXIAL SKELETON BONE DENSITY 1 OR MORE SITES REASON FOR STUDY: 73 y/o year old F with given history of: DISORDER OF BONE DENSITY AND STRUCTURE, UNSPECIFIED Screening postmenopausal Air Antisubmarine Officer/Model: Anacomp SL (S/N [id number]) CLINICAL INFORMATION: Current height: 69 inches Maximum [...] Moo Kohler M.D. MF: BAM Report ID: [id number] Reading Location: [id number] Procedure Note Moo Kohler MD - 09/18/2023 EXAM DESCRIPTION: DEXA AXIAL SKELETON BONE DENSITY 1 OR MORE SITES REASON FOR STUDY: 73 y/o year old F with given history of: DISORDEROF BONE DENSITY AND STRUCTURE, UNSPECIFIED Screening postmenopausal Air Antisubmarine Officer/Model: Photolitec (S/N 77803) CLINICAL INFORMATION: Current height: 69 inches Maximum [...] Moo Kohler M.D. MF: BAM Report ID: [id number] Reading Location: [id number] Dejon Mosley MD IMG DXA PROCEDURES Final Result * FIT occult blood, fecal (08/09/2023 11:11 AM CDT) FIT occult blood, fecal Negative Negative [facility] ([place]) Comment: Negative result. This test will not detect upper gastrointestinal bleeding; the HemoQuant test (0524)should be ordered if clinically indicated. Test Performed by: [place] [address] Breast Splitter: Scooter Mendez M.D. Ph.D.; CLIA# [id number] Testing performed by: [facility], [address] [place] [address], [facility], [address] Stool 08/09/2023 11:1 1 AM CDT 08/09/2023 6:33 PM CDT us Dejon Mosley MD LAB BODY FLUIDS AND STOO LS ORDERABLES Final Result [facility]ERLINE BR[facility]GER ([place]) [address] [facility] [place] [address] * COLONOSCOPY (04/06/2023 9:16 AM CDT) Anatomical Region Laterality Modality Other Narrative Procedure Note Ildefonso Awad MD - 04/06/2023 9:16 AM CDT [facility] Patient Name: Bhavana Mon Procedure Date: 04/06/2023 9:16 AM Date of : 1950 Admit Type: Outpatient Age: 73 Gender: Female Attending MD: Ildefonso Awad M.D. Room: [facility] ENDOSCOPY ROOM 1 Note Status: Finalized Patient [...] scope was passed under direct vision. TheColonoscope [id number] was introduced through the anus and advanced [...] 9:16 AM Procedure Code(s): --- Professional --- 81741, Colonoscopy, flexible; with biopsy, single or multiple --- Technical --- 38234, Colonoscopy, flexible; with biopsy, single or multiple [...] unspecified K64.9, Unspecified hemorrhoids CPT copyright 2020 [employer]. All rights reserved. The codes documented in this report are preliminary and upon sustainability director reviewmay be revised to meet current compliance requirements. Recognized by the [employer] for promoting quality in endoscopy us Ildefonso Awad MD ENDOSCOPY PROCEDURES Final Re sult * Screening Mammogram Bilateral W Wicho W Implants (01/06/2023 3:27 PM CARTON STAMPER) Anatomical Region Laterality Modality Breast Bilateral Mammography 01/06/2023 3:46 PM CARTON STAMPER Impressions 01/06/2023 3:46 PM CARTON STAMPER There is no mammographic evidence of malignancy. [...] Gabe Bishop M.D. Narrative 01/06/2023 3:46 PM CARTON STAMPER EXAMINATION: SCREENING MAMMOGRAM BILATERAL W WICHO W [...] AM CDT) Hep A IgM Nonreactive Nonreactive [facility] ([place]) Comment: Interpretive Data: If Hep A IgM Ab is reported as Equivocal, a new sample should be drawn in two weeks for testing. Current interpretive data was last revised on 20. Testing performed by: [facility], [address] [place] [address], [place]., [address] Hep B core IgM Nonreactive Nonreactive [facility] ([place]) Comment: Interpretive Data If HepB Core IgM Ab is reported as Equivocal, a new sample should be drawn in two weeks for testing. Current interpretive data was last revised on 20. Testing performed by: [facility], [address] [place] [address], [place]., [address] Hep C Ab Nonreactive Nonreactive [facility] ([place]) Comment: Interpretive Data Nonreactive: Antibodies [...] revised on 2020. Testing performed by: [facility], [address] [place] [address]., [address] HepBsAg Nonreactive Nonreactive [facility]ERLINE SPARKS ([place]) Comment:Testing performed by : [facility], [address] [place] [address]., [address] Blood specimen (specimen) 04/22/2021 11:23 AM CDT 04/22/2021 4:20 PM CDT Ruddy Pagan MD LAB MICROBIOLOGY - [facility] ORDERABLES Final Result [facility]LINE SPARKS ([place]) [address] [facility] [place] [address] from Last 3 Months or Most Recently Relevant to Health Maintenance Additional Health Concerns Infection Onset Date Last Indicated MDR gram neg/ESBL 06/20/2023 06/20/2023 Insurance [employer] HMO PPO [employer] HMO PPO Advance Directives For more information, please contact: [phone] * Full Code (Latest Code Status on File) Date Activated Date Inactivated Comments 04/06/2023 9:11 AM 04/06/2023 5:30 PM * Full Code Date Activated Date Inactivated Comments 10/07/2020 5:08 PM 10/12/2020 7:38 PM * Full Code Date Activated Date Inactivated Comments 03/01/2018 4:59 PM 03/03/2018 3:35 PM Care Teams Media Relations Specialist Relationship Specialty Start Date End Date Dejon Mosley MD [address] [address] [place] [address] PCP - General 03/08/22 [place] [address] [facility] [address] [place] [address] Consulting Physician Pulmonary Disease 03/19/20 Vanessa Youngblood, HAND SANDER [address] [facility] [address] [place] [address] Nurse Practitioner Medical Oncology 03/19/20 Chencho Cesar, PT Physical Therapist Physical Therapy 03/23/22 Joseph Moser MD Medical Oncologist/Hematologi st Hematology and Oncology 10/19/22 Gerardo Bass MD [address] [place] [address] Consulting Physician Otolaryngology 10/31/23
--- OUTSIDE RECORDS SUMMARY | 2025-02-18 12:51 | XMS_ITS | CONTINUITY OF CARE DOCUMENT ---
Author Name raymond andrade Address Unknown Organization [facility] Address [address] [place] [address] [address] [place] [address] Phone [phone] Care Team Providers Care Associate Professor Of Radiology Name Role Phone Re LEE, Donald Unavailable [phone] Willem Nina MD Unavailable MITCHELL DRAW FRAME RUNNER-BC, ABIOLA A Unavailable [phone] PROBLEMS Condition Status Date Provider Notes Obesity active Donald Grimaldo MD ? Sleep apnea active Donald Grimaldo MD HTN essential active Donald Grimaldo MD Hiatal hernia active Donald Grimaldo MD CAD;seen on ct active Donald Grimaldo MD Cerebral atherosclerosis active Donald merlos MD FAMILY HISTORY OF HEART DISEASE active Donald Grimaldo MD afib and cad Aortic atherosclerosis active Donald Grimaldo MD PVC's active Donald Grimaldo MD Anemia of chronic disease;macrocyis active Donald Grimaldo MD Sinus tachycardia;nml tsh active Donald rangel MD Screening active Donald Grimaldo MD Diastolic CHF active Donald Grimaldo MD Multiple myeloma active Donald Grimaldo MD Hyperlipidemia active Donald Grimaldo MD PREDIABETES active Donald Grimaldo MD Depression, chronic active Donald Grimaldo MD Tobacco use, quit active Donald Grimaldo MD t oo remote to scren Emphysema active Donald Grimaldo MD RA, chronic active Donald Grimaldo MD ENCOUNTERS Date Type Provider Location Encounter Diag nosis - In-person encounter Office Visit Donald Grimaldo MD [facility] RA, chronicEmphysemaTobacco use, quitDepression, chronicPREDIABETESHyperlipidemiaMultiple myelomaDiastolic CHFScreeningSinus tachycardia;nml tshAnemia of chronic disease;macrocyisPVC'sAortic atherosclerosisFAMILY HISTORY OF HEART DISEASECerebral atherosclerosisCAD;seen on ctHiatal herniaHTN essential? Sleep apneaObesity VITAL SIGNS Date Observation Value Provider Body Mass Index (Ratio) 31.16 kg/m2 Dallas Grimaldo MD blood pressure, diastolic 60 mm[Hg] [facility] blood pressure, systolic 148 mm[Hg] Galina karen [place] pulse rate 108 /min [facility] oxygen saturation, oximetry 96 % [facility] blood pressure, resting Yes [facility] respiratory rate E&M 18 /min [facility] height E&M 69 [in_i] [facility] weight E&M 211 [lb_av] [facility] HISTORY OF MEDICATION USE Medication Status Instructions Dates Provider Indications Com ments ASPIRIN ADULT LOW DOSE 81 MG ORAL TABLET DELAYED RELEASE active One Tab By Mouth Daily 0 Donald Grimaldo MD COREG 6.25 MG ORAL TABLET active ONE TAB. TWICE DAILY 0 Donald Grimaldo MD NALTREXONE HCL 50 MG ORAL TABLET active 1/2 tab by mouth daily, if not effective after 1 week may increase to 1/2 tab twice daily 0 Donald Grimaldo MD CRESTOR 20 MG ORAL TABLET active ONE TAB. DAILY 0 Donald Grimaldo MD B COMPLEX ORAL TABLET active take one tablet by mouth once daily 0 Lidia Sol PROPRANOLOL HCL 40 MG ORAL TABLET active as needed 0 Lidia Ebenezer MAGNESIUM active take one tablet by mouth once daily 0 Lidiakaren Sol PROAIR HFA 108 (90 BASE) MCG/ACT INHALATION AEROSOL SOLUTION active as needed 0 Lidia [place] TRIAMTERENE-HCT Z 37.5-25 MG ORAL TABLET active TK 1 T PO D UTD 4 Lidia [place] #90, 90 days supply, Prescribed by ABIOLA MITCHELL, Filled 11/21/2018 PREDNISONE 5 MG ORAL TABLET active take one tablet by mouth once daily 6 Lidia [place] #30, 30 days supply, Prescribed by ROBIN JADE, Filled 02/16/2019 POTASSIUM CHLORIDE MARK ER 20 MEQ ORAL TABLET EXTENDED RELEASE active take one tablet by mouth once daily 3 Lidia Sol #450, 90 days supply, Prescribed by ABIOLA MITCHELL, Filled 03/22/2019 OMEPRAZOLE 40 MG ORAL CAPSULE DELAYED RELEASE active take one tablet by mouth once daily 4 Lidiaaquiles Sol #90, 90 days supply, Prescribed by ABIOLA MITCHELL, Filled 02/03/2019 FUROSEMIDE 40 MG ORAL TABLET active TK 1 T PO D UTD 5 Lidia [place] #90, 90 days supply, Prescribed by ABIOLA MITCHELL, Filled 09/24/2018 DULERA 100-5 MCG/ACT INHALATION AEROSOL active INL 2 PFS PO TWICE DAILY. RM WITH WATER AFTER U TO REDUCE AFTERTASTE AND INCIDENCE OF CANDIDIASIS. DO NOT SWALLOW 5 Lidia Sol #13, 30 days supply, Prescribed by ABIOLA MITCHELL, Filled 01/22/2019 BUPROPION HCL ER (XL) 150 MG ORAL TABLET EXTENDED RELEASE 24 HOUR active take one tablet by mouth once daily 4 Lidia Ebenezer #90, 90 days supply, Prescribed by AIBOLA MITCHELL, Filled 11/21/2018 ALLOPURINOL 100 MG ORAL TABLET active take one tablet by mouth once daily 4 Lidiakaren Sol #90, 90 days supply, Prescribed by ABIOLA MITCHELL, Filled 02/03/2019 SOCIAL HISTORY Date Observation Value Provider social history E&M S moking History: Jad hunter is a former smoker. Donald Grimaldo MD social history reviewed E&M revi ewed - no changes required Donald Grimaldo MD quit smoking, stage quit Donald gonzalez MD smoking history, tot al pack/day 1 pk Lidia Ebenezer smoking, year quit 1996 Lidia ricksy cigarette use yes Lidia Porrasby smoking status Former smoker Lidia Porrasby FUNCTIONAL STATUS Date Observation Value Provider HRA, CV Assess/Plan, Angina (inactive) Management Plan schedule PCI Donald Grimaldo MD FAMILY HISTORY Family Member Condition Full Brother Family History of Hy pertension: Father Family History of Quintana dden Cardiac : Father Family History of Hy pertension: INSURANCE PROVIDERS Payer name Policy type / Coverage type [place] red green party ID BLUE [facility] Blue [facility] [id number] [place] MEDICARE PART B Medicare [id number] TREATMENT PLAN Date Name Performer Cardiology;firsl rlrickey, no root H davi Grimaldo MD Cardiology;firsl rl, no root H arvcristina Grimaldo MD Cardiology;firsl rl, no root H arvey Serotashlie LEE Cardiology;firs rl, no root H arvey Serotashlie LEE Cardiology;firsl rl, no root H arvey Serotashlie LEE Cardiology;firsl rl, no root H arvey Serota Cardiology;firsl rl, no root H arvey Serota Cardiology;firsl rl, no root:4 41 Donald Grimaldo MD Cardiology;firs rl, no root H arvey Serota Cardiology;firsl rl, no root:w ill rx Donald Grimaldo MD Cardiology;firsl rl, no root:s x will ordaz Donald Grimaldo MD [facility], no root:nml vit d neg ct pe, neg pet ct Donald Grimaldo MD Date Name Mobile Cardiac Tele Venous Doppler Bilat eral LE - Reflux Holter Monitor 24 Hr HISTORY OF PROCEDURES Procedure Date Procedure Name Provider Procedure Notes S tatus EKG Donald Grimaldo MD complete d
--- OUTSIDE RECORDS SUMMARY | 2025-02-18 12:55 | XMS_ITS ---
Author Organization [facility] Address [address] [facility] [place] [address] Care Team Providers Care Clerical Grader Name Role Phone Dimitri LEE, Dejon Primary Care Provider Sondra Pimentel Unavailable [phone] Allergies Allergen (clinical drug ingredient) Drug/Non Drug Allergy documented on EMR Reaction Allergy Type Onset Date Status Keflex Unknown Drug Allergy 03/28/2018 Active tramadol Tramadol Reaction: migraines Drug Allergy 03/28/2018 Active REASON FOR VISIT yd,f/u,cc, follow-up, inflammatory arthritis, hearing loss, Dr. Dejon Mosley Medications Medication SIG (Take, Route, Frequency, Duration) Notes Start Date End Date Status predniSONE 5 MG TAKE 1 TABLET BY ANGEL EVERY DAY Orally Once a day for 90 days Active buPROPion HCl ER (XL) 300 MG take 1 tablet (300 mg) by oral route once daily Oral 1 Active Baclofen 10 MG 1 tablet as needed O rally bedtime Active Allopurinol 300 MG take 1 tablet (300 m g) by oral route once daily Oral Once a day for 90 days Active Potassium Chloride ER 20 MEQ take 1 tablet (20 meq) by oral route 2 times per day with food Oral 2 Active Benzonatate 200 MG 1 capsule Orally Thr ee times a day for 30 day(s) Active Pepcid 20 MG take 1 tablet (20 mg ) by oral route once daily at bedtime Oral 1 Active Multi-Vitamin take 1 tablet by ora l route once Oral 1 Active Vitamin B Complex Oral Ac tive Albuterol Sulfate HFA 108 (90 Base) MCG/ACT prn Inhalation Active Furosemide 40 MG Oral Act thu Carvedilol 12.5 MG take 1 tablet (12.5 mg) by oral route 2 times per day with food Oral 2 Active Vital Signs Temperature 97.2 degrees Fahrenheit 08/13/20 Blood pressure systolic 140 mm Hg 08/13/20 Blood pressure diastolic 70 mm Hg 024 Heart Rate 89 /min 08/13/2024 Height 69 in 08/13/2024 Weight 191.8 lbs 08/13/2024 BMI 28.32 kg/m2 08/13/2024 Oximetry 95 % 08/13/2024 Encounters Encounter Location Date Provider Diagnosis [facility] [address] [facility] [place] [address] 08/13/2024 Sondra Jade Inflammatory arthrit is M19.90 ; Gout, unspecified cause, unspecified chronicity, unspecified site M10.9 ; Decreased GFR R94.4 ; Multiple myeloma, remission status unspecified C90.00 and Hearing loss of right ear, unspecified hearing loss type H91.91 Assessments Encounter Date Diagnosis (ICD Code) Assessment Notes Treatment Notes Treatment Clinical Notes Section Notes 08/13/2024 Inflammatory arthritis (ICD-10 - M19.90) she wants to be checked for temporal arteritis, will order CRP, refer to Dr. Montague (ENT) 08/13/2024 Gout, unspecified cause, unspecified chronicity, unspecified site (ICD-10 - M10.9) she wants to be checked for temporal arteritis, will order CRP, refer to Dr. Montague (ENT) 08/13/2024 Decreased GFR (ICD-10 - R94.4) she wants to be checked for temporal arteritis, will order CRP, refer to Dr. Montague (ENT) 08/13/2024 Multiple myeloma, remission status unspecified (ICD-10 [...] Name Sig Start Date Stop Date Notes predniSONE 5 MG TAKE 1 TABLET BY ANGEL TH EVERY DAY Orally Once a day for 90 days Next Appt Details Provider Name:Sondra Jade, 04/09 10:45:00 AM, [address], [address], [place], [address], Progress Notes * Jamie MONOB:1950 (74 yo F)Acc No.[id number]:08/13/2024 Progress Notes Patient: Bhavana CORDON Provider: Crow JADE MD :1950 A ge:74 Y S ex:Female Date:08/13/2024 Address:[address] [place] [address] , [facility] Pcp:Dejon Mosley MD Subjective: * Chief Complaints: * Y d,f/u,ccFollow-upInflammatory arthritis, hearing lossDr. Dejon Mosley * HPI: G eneral Follow up: on prednisone 5mg/day, unable to taper off, taking KIMBERLY Hibiscus supplements, off ibupropfen due to kidney issues, arthritis stable, hands a little sore in the morning, am stiffness: <30min saw ENT for hearing loss (R ear), had steroid injection, hearing has improved some, wears hearuing aid did not tolerate arava due to diarrhea, stopped MTX due to SOB (chest CT: COPD with minimal interstitial lung disease, hx of smoking), uses inhaler saw terminal manager for palpitations, was diagnosed with CHF, now on coreg, did not tolerate statin on allopurinol 300mg/day for gout, had been on 400mg/day, renal decreased dosage, no gout flares sees incident manager for smoldering myeloma, BM biopsy 20-30% plasma cells. ESR ranged from 50's -77 hx of skin cancer. * ROS: G eneral / Constitutional: Patient denies f gracy, chills. P atient complains of?fatigue. M usculoskeletal: Patient complains of s ee HPI. S kin: Patient denies r yanet. * Medical History: * Surgical History: H ysterectomy; [id number]; [id number]; [id number] ligation; 2018-03-28 * Hospitalization/Major Diagno stic Procedure: [...] route once daily Oral Once a day predniSONE 5 MG Tablet TAKE 1 TABLET [...] MOUTH EVERY DAY Orally Once a day DiscontinuedClotrimazole 10mg prn for thrush , Notes to Pharmacist: *Pick strength-form from [facility] for eRX*Medication List reviewed and reconciled with the patientDiscontinued Clotrimazole 10mg prn for thrush , Notes to Pharmacist: *[facility]*Medication List reviewed and reconciled with the patient * Allergies: K eflex: Allergy - Onset Date 03/28/2018Tramadol: Reaction: migraines - Allergy - Onset Date 03/28/2018no[Allergies Verified] Objective: * Vitals: B P:140/70mm Hg, HR:89/min, Temp:97.2F, Oxygen sat %:95%, Wt:191.8lbs, Ht:69in, BMI:28.32Index. * Examination: G eneral Examination: General appearance: a lert, well-nourished and in no acute distress. Head: n ormocephalic, atraumatic. Eyes: n ormal. Skin: n o rash. Lungs: r espiratory effort normal. N eurology: Speech: n ormal. P sychiatry: Affect / mood: a ppropriate. R heumatology: m ild pain in shoulders with abduction, knees mildly tender, no swelling. Assessment: * Assessment: 1. I nflammatory arthritis - M19.90 (Primary) 2 . G out, unspecified cause, unspecified chronicity, unspecified site - M10.9 3 . D ecreased GFR - R94.4? 4. M ultiple myeloma, remission status unspecified - C90.00 5 . Hearing loss of right ear, unspecified hearing loss type - H91.91 she wants to be checked for temporal arteritis, will order CRP, refer to Dr. Montague (ENT). Plan: * Treatment: * Procedure Codes: * Billing Information: * Visit Code: 02367 Office Visit, Est Pt., Level 4. * Procedure Codes: * Sign off status: Completed true * Provider: Crow JADE MD Date: 0 08/13/2024 Generated for Francois cisneros/Nneka/Raine on: 0 02/18/2025 12:55 PM CDT History and Physical Notes * HPI (History of Present Illness) Category Sub-Category Detail Notes Category Not es General Follow up on prednisone 5mg/day, unable to taper off, taking KIMBERLY Hibiscus supplements, off ibupropfen due to kidney issues, arthritis stable, hands a little sore in the morning, am stiffness: <30min saw ENT for hearing loss (R ear), had steroid injection, hearing has improved some, wears hearuing aid did not tolerate arava due to diarrhea, stopped MTX due to SOB (chest CT: COPD with minimal interstitial lung disease, hx of smoking), uses inhaler saw terminal manager for palpitations, was diagnosed with CHF, now on coreg, did not tolerate statin on allopurinol 300mg/day for gout, had been on 400mg/day, renal decreased dosage, no gout flares sees incident manager for smoldering myeloma, BM biopsy 20-30% plasma cells. ESR ranged from 50's -77 hx of skin cancer Examination Category Sub-Category Detail Notes Category Not es Rheumatology mild pain in shoulders with abduction, knees mildly tender, no swelling Neurology Speech: normal Psychiatry Affect / mood: appropriate General Examination General appearance: alert, w ell-nourished and in no acute distress Head: normocephalic, atrau matic Eyes: normal Lungs: respiratory effort n ormal Skin: no rash
--- OUTSIDE RECORDS SUMMARY | 2025-02-18 12:55 | XMS_ITS | CONTINUITY OF CARE DOCUMENT ---
Author Name raymond andrade Address Unknown Organization [facility] Address [address] [place] [address] [address] [place] [address] Phone [phone] Care Team Providers Care Silver Buffer Name Role Phone Re LEE, Donald Unavailable [phone] Willem Nina MD Unavailable [phone] MITCHELL DEALER ANALYST-BC, ABIOLA A Unavailable [phone] PROBLEMS Condition Status Date Provider Notes Obesity [...] In-person encounter Office Visit Donald Grimaldo MD [facility] RA, chronicEmphysemaTobacco use, quitDepression, chronicPREDIABETESHyperlipidemiaMultiple myelomaDiastolic CHFScreeningSinus tachycardia;nml tshAnemia of chronic disease;macrocyisPVC'sAortic atherosclerosisFAMILY HISTORY OF HEART DISEASECerebral atherosclerosisCAD;seen on ctHiatal herniaHTN essential? Sleep apneaObesity VITAL SIGNS Date Observation Value Provider Body Mass Index (Ratio) 31.16 kg/m2 Dallas Grimaldo MD blood pressure, diastolic 60 mm[Hg] [facility] blood pressure, systolic 148 mm[Hg] Galina karen [place] pulse rate 108 /min [facility] oxygen saturation, oximetry 96 % [facility] blood pressure, resting Yes [facility] respiratory rate E&M 18 /min [facility] height E&M 69 [in_i] [facility] weight E&M 211 [lb_av] [facility] HISTORY OF MEDICATION USE Medication Status Instructions [...] AEROSOL SOLUTION active as needed 0 Lidia [place] TRIAMTERENE-HCT Z 37.5-25 MG ORAL TABLET active [...] Ebenezer #90, 90 days supply, Prescribed by ABIOLA MITCHELL, Filled 11/21/2018 ALLOPURINOL 100 MG ORAL [...] Payer name Policy type / Coverage type [place] red republican ID BLUE [facility] Blue [facility] [id number] [place] MEDICARE PART B Medicare [id number] TREATMENT PLAN Date Name Performer Cardiology;firsl rlrickey, [...] root:s x will ordaz Donald Grimaldo MD [facility], no root:nml vit d neg ct pe, neg pet ct Donald Grimaldo MD Date Name Mobile Cardiac Tele Venous Doppler Bilat eral LE - Reflux Holter Monitor 24 Hr HISTORY OF PROCEDURES Procedure Date Procedure Name Provider Procedure Notes S tatus EKG Donald Grimaldo MD complete d
--- OUTSIDE RECORDS SUMMARY | 2025-02-18 12:55 | XMS_ITS | Continuity of Care Document ---
Author Organization [facility] Address [address] [facility] utiprisca Aguilera [address] [place] [address] Phone Care Team Providers Care Pipeline Integrity Engineer Name Role Phone Unavailable Unavailable Unavailable Allergies, [...] Diagnoses Date Provider Providers Copied on Encounter [facility], [address], [place], [place], [address], tel:[phone] SEC Pankaj MERCADO Professional Post-Op (chief complaint) Post op visit 1 No Information Referring Provider: Hernan Ulloa, [address] [facility] [address], [place], [address] . tel:[phone] [facility], [place] [address], [place], [place], [address], tel:[phone] SEC Moroni [place] Professional 1 wk CE PO (12/30/20) (chief complaint) Post op visit No Information Referring Provider: Hernan Ulloa, [address] [facility] [address], [place], [address] . tel:[phone] [facility], [address], [place], [place], [address], tel:[phone] SEC Pankaj [place] Professional 1 day po PCIOL OD (12/30/20) (chief complaint) Post op visit No Information Referring Provider: Hernan Ulloa, [address] [place] [place], [address] . tel:[phone] [facility], [address] [place] [address] [address], [place], [place], [address], tel:[phone] [facility] No Information Phil Becerra. [address] [facility], [facility] [place], [address], . tel:[phone] Referring Provider: Hernan Ulloa, [address] [facility] [place], [address] . tel:[phone] [facility], [address], [place], [place], [address], tel:[phone] SEC [place] [facility] [place] No Information Phil Becerra. [address], [facility] [place], [address], . tel:[phone] Referring Provider: Hernan Ulloa, [address] [facility] [place], [address] . tel:[phone] [facility], [address], [place], [place], [address], [place] tel:[phone] SEC Pankaj MERCADO Professional 2 wk po PCIOL OS (12/10/20) (chief complaint) Post op visit 1 Phil Becerra. [address], [place], [place], [address], . tel:[phone] Referring Provider: Hernan Ulloa, [address] [address], [place], [address] . tel:[phone] [facility], [address], [place], [place], [address], [place] tel:[phone] SEC Pankaj MERCADO Professional Post-Op (chief complaint) Post op visit 1 No Information Referring Provider: Hernan Ulloa, [address] [facility] [place], [address] . tel:[phone] [facility], [address], [place], [place], [address], [place] [phone] [facility] No Information 1 Phil Becerra. [address] [facility], [address] [place], [address], [place]. tel:[phone] Referring Provider: Hernan Ulloa, [address] [facility] [address], [place], [address] . tel:[phone] [facility], [address], [place], [place], [address], [place] [phone] SEC Pankaj MERCADO Professional No Information 1 Phil Becerra. [address], [address] [place], [address], [place]. tel:[phone] Referring Provider: Hernan Ulloa, [address], [place], [address] . tel:[phone] [facility], [address], [place], [place], [address], [phone] SEC Moroni [place] Professional Complete Exam (chief complaint) Age-related nuclear cataract, bilateralVitr eous degeneration, left eyeDrusen (degenerative ) of macula, left eye Nov-0 3-202 0 Phil Becerra. [address] [employer], [address] [place], [address], [place]. tel:[phone] Referring Provider: Hernan Ulloa, [address], [place], [address] . tel:[phone] [facility], [address], [place], [place], [address], [phone] SEC [facility] No Information Oct-2 8-202 0 Phil Becerra. [address] [employer], [place] [address], [place]. [phone] [facility], [address], [place], [place], [address], [place] tel:[phone] SEC Pankaj PR Professional Complete Exam (chief complaint) Punctate keratitis, bilateralAge- related nuclear cataract, bilateralPVD (posterior vitreous detachment), both eyesDrusen (degenerative ) of macula, left eye Dec-1 0-201 8 Phil Becerra. [address], [address] [place], [address], [place]. tel:[phone] Referring Provider: Hernan Ulloa, [address] [place], [address] . tel:[phone] [facility], [address], [place], [place], [address], [place] [phone] SEC [place] Professional No Information Dec-0 6-201 8 Phil Becerra. [address] [facility], [address], [place], [place], [address], [place]. tel:[phone] Family History Family Member Type Diagnosis Age [...]
== END 2025-02-18 12:10 | disposition home or self-care (01) ==
PROVIDERS: Emergency Provider Nurse Practitioner; PCP Internal Medicine
DX: J06.9 Acute upper respiratory infection, unspecified (principal); I10 Essential (primary) hypertension; E78.00 Pure hypercholesterolemia, unspecified; J44.9 Chronic obstructive pulmonary disease, unspecified; M06.9 Rheumatoid arthritis, unspecified; Z86.16 Personal history of COVID-19
CPT/HCPCS: 81003; 87086; 99213; G0463